=== PATIENT | female | born 1955 | race Caucasian/White ===

== ENCOUNTER 2023-02-27 11:09 | Outpatient (CLI) | payer MEDICARE, OTHER, SELFPAY ==
--- NOTE | ~2023-02-27 | CT_ITS ---
CT Scan of the Chest without Contrast: Clinical Indication: Lung cancer screening, personal history of nicotine dependence Technique: Contiguous sections were acquired throughout the chest without intravenous contrast. Dose reduction technique was used on this scan by utilizing automated exposure control and iterative recon struction technique. The dose-length product (DLP) was 139.93 mGy-cm. Findings: There is no evidence of any significant mediastinal, hilar or axillary lymphadenopathy. Calcified med iastinal and right hilar lymph nodes are present. Coronary artery calcifications are present. There is no evidence of pleural or pericardial effusion. Calcified right lower lobe granuloma is are present. There is a 7 mm noncalcified right lower lobe pu lmonary nodule (axial image 62). No left lung pulmonary nodule identified. There is minimal subpleura l reticulation in the lungs. Images through the upper abdomen reveal calcified splenic and hepatic granulomas. Impression: Lung RADS 3: Probably benign. Six-month follow-up low-dose CT recommended. Evidence of prior granulomatous disease. Reviewed, dictated and finalized at [facility]. Impression: Lung RADS 3: Probably benign. Six-month follow-up low-dose CT recommended. Evidence of prior granulomatous disease.
== END 2023-02-27 11:10 | disposition home or self-care (01) ==
PROVIDERS: PCP Family Medicine Adolescent Medicine; Visit Provider Nurse Practitioner Family
DX: Z12.2 Encounter for screening for malignant neoplasm of respiratory organs (principal); Z87.891 Personal history of nicotine dependence; R91.8 Other nonspecific abnormal finding of lung field
CPT/HCPCS: 71271

== ENCOUNTER 2023-03-19 10:24 | Outpatient (CLI) | payer MEDICARE, OTHER, SELFPAY ==
--- NOTE | 2023-03-20 12:28 | WPDPFTINT ---
PFT Procedure Performed PFT Procedure Performed Spirometry with Pre/Post Bronchodilator Plethysmography (Lung Vol) Diffusing Cap (DLCO) Flow Vol Loop PFT Interpretation DOS: 03/19/2023 REQUESTING: Jorge Sweeney MD REASON FOR TESTING: Chronic cough, tobacco use PULMONARY FUNCTION TESTS Results are reliable and reproducible. Spirometry: pre bronchodilator FEV1 is 2.16 L, 91%, normal. Pre bronchodilator FVC is 2.71 L, 88%, normal. FEV1/ FVC ratio is 80%, normal. After bronchodilator there is a 3% drop in the FEV1 and 3% drop in the FVC, not statistically significant. The ratio remains 80%. Lung volumes: Total lung capacity is 4.42 L, 82%, normal. Residual volume is 1.71 L, 74%, normal. RV /TLC is 39%, normal. Normal airway resistance. Diffusion: DLCO is 16.4, 77%, in the normal range. DLCO / VA is 4.22, 101% predicted, normal. Flow volume loop: Unremarkable IMPRESSION: This study shows normal spirometry without response to bronchodilator, normal lung volumes and normal diffusion. No prior studies for comparison. Florecita Miles MD
== END 2023-03-19 10:25 | disposition home or self-care (01) ==
LOC: ANHPFT 10:25
PROVIDERS: PCP Family Medicine Adolescent Medicine; Visit Provider Nurse Practitioner Family
DX: R05.3 Chronic cough (principal); Z72.0 Tobacco use
CPT/HCPCS: 94060; 94726; 94729

== ENCOUNTER 2024-03-05 07:00 | Outpatient (NON) | payer MEDICARE, OTHER, SELFPAY | END 2024-03-05 07:01 | disposition home or self-care (01) | PROVIDERS: PCP Family Medicine Adolescent Medicine; Visit Provider Internal Medicine Gastroenterology | DX: Z12.11 Encounter for screening for malignant neoplasm of colon (principal); K63.5 Polyp of colon | CPT/HCPCS: 88305 ==

== ENCOUNTER 2024-03-05 07:37 | Day surgery (SDC) | payer MEDICARE, OTHER, SELFPAY ==
[2024-02-08 08:22] VITALS: BMI 33.1
[2024-02-22 11:45] VITALS: BMI 32.3
--- NOTE | 2024-02-28 10:38 | SUR.PREOP ---
CALLED PT AND LEFT A VM REGARDING PLAVIX; LAST DOSE WEDNESDAY 02/28. HOLD FOR 4 DAYS PRIOR TO COLONOSCOPY ON 03/05. ASKED FOR HER TO RETURN OUR CALL FOR CONFIRMATION
[2024-03-05 08:05] VITALS: BP 130/63; PULSE 79; RESP 16; TEMP 36.9; O2SAT 95
[2024-03-05] MEDS: LACTATED RINGERS 1,000 ML 150 ML IV CONT (08:13)
--- NOTE | 2024-03-05 08:27 | WPDANESEPPF ---
Anes - Initial Pre Proc Eval Procedure: Operation Date: 03/05/24 09:30 Proposed Procedures p Screening Colonoscopy - Armando Olivares MD Date/Time: 03/05/24 08:27 Surgeon: Armando Olivares MD Pre Op Diagnosis: Screening for neoplasm of colon Patient Data Age: 69 Gender: F Height: 1.68 m Weight: 88.8 kg Last Vital Signs Temp 36.9 C 03/05/24 08:05 Pulse 79 03/05/24 08:05 Resp 16 03/05/24 08:05 BP 130/63 03/05/24 08:05 Pulse Ox 95 03/05/24 08:05 O2 Del Method Room Air 03/05/24 08:05 Allergies Allergy/AdvReac Type Severity Reaction Status Date / Time No Known Allergies Allergy Verified 03/05/24 08:03 Home Medications Medication Instructions Recorded Confirmed Type folic acid 1 mg tablet 1 mg PO DAILY 07/13/22 03/05/24 History gabapentin 300 mg (9)-600 mg (24) 2 ea PO .hs 07/13/22 03/05/24 History tablet, ER 24 hr dose pack oxybutynin chloride 5 mg tablet 5 mg PO BID 07/13/22 03/05/24 History tizanidine 2 mg capsule 2 mg PO QHS 07/13/22 03/05/24 History diclofenac sodium 75 mg 75 mg PO BID 02/06/24 03/05/24 History tablet,delayed release evolocumab 420 mg/3.5 mL 420 mg (3.5 mL) subcut MONTHLY 02/06/24 03/05/24 Rx subcutaneous wearable injector #11.5 mL (Repatha Pushtronex) pantoprazole 40 mg tablet,delayed 40 mg PO QAM 02/06/24 03/05/24 History release atorvastatin 80 mg tablet 80 mg PO DAILY 02/22/24 03/05/24 History bupropion HCl 150 mg 24 hr tablet, 150 mg PO DAILY 02/22/24 03/05/24 History extended release buspirone 10 mg tablet 10 mg PO BID 02/22/24 03/05/24 History clopidogrel 75 mg tablet 75 mg PO DAILY 02/22/24 03/05/24 History coenzyme Q10 10 mg tablet 10 mg PO DAILY 02/22/24 03/05/24 History ezetimibe 10 mg tablet 10 mg PO DAILY 02/22/24 03/05/24 History flssvcxi-war-srfz 18 mg-FA 400 1 tablet PO DAILY 02/22/24 03/05/24 History mcg-calcium 500 mg-vit K 50 mcg tablet (Women's Multivitamin) trazodone 100 mg tablet 100 mg PO HS 02/22/24 03/05/24 History varenicline 1 mg tablet 1 mg PO DIRECTED 02/22/24 03/05/24 History acetaminophen 325 mg tablet 650 mg PO Q6H PRN Pain 03/05/24 03/05/24 History Patient hx anesthesia problems: none Family hx anesthesia problems: none Results Review: All pre-operative results and documents have been reviewed as part of the pre-operative evaluation. [facility] Surgical History Surgical History History of left-sided carotid endarterectomy (~07/2021) Family History Family History Sibling Schizophrenia Sibling Acute myocardial infarction Other Diabetes mellitus Social History Social History Smoking packs per day: 0.5 Smoking cigarettes per day: 10.0 Years smoked: 50 Smoking pack-years: 25.00 Smoking status: Current every day smoker Tobacco type: cigarettes Additional smoking assessment comments: / ppd Alcohol intake: current Alcohol use details: occasional Substance use: never Substance use type: does not use Living arrangements: with family 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 Informed Consent: The patient's anesthetic plan and its attendant risks and benefits were discussed with sneha
--- NOTE | 2024-03-05 08:56 | PM.HPGS ---
History of Present Illness History of Present Illness Consent: Risks, benefits, and alternatives have been discussed and questions answered. Patient agrees to proceed with procedure. Chief complaint: Screening for neoplasm of colon Narrative: Asmita Samson is a 69 year old female presents for screening colonoscopy. Patient's current weight appetite is are normal. She denies abdominal pain. Patient has had no bleeding. Family history is noncontributory. Review of Systems Review of Systems: All systems reviewed & are unremarkable except as noted in HPI and below PMFSH Surgical History Surgical History History of left-sided carotid endarterectomy (~07/2021) Family History Family History Sibling Schizophrenia Sibling Acute myocardial infarction Other Diabetes mellitus Social History Social History Smoking packs per day: 0.5 Smoking cigarettes per day: 10.0 Years smoked: 50 Smoking pack-years: 25.00 Smoking status: Current every day smoker Tobacco type: cigarettes Additional smoking assessment comments: / ppd Alcohol intake: current Alcohol use details: occasional Substance use: never Substance use type: does not use Living arrangements: with family 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5 mL) subcut MONTHLY 02/06/24 03/05/24 Rx subcutaneous wearable injector #11.5 mL (Repatha Pushtronex) pantoprazole 40 mg tablet,delayed 40 mg PO QAM 02/06/24 03/05/24 History release atorvastatin 80 mg tablet 80 mg PO DAILY 02/22/24 03/05/24 History bupropion HCl 150 mg 24 hr tablet, 150 mg PO DAILY 02/22/24 03/05/24 History extended release buspirone 10 mg tablet 10 mg PO BID 02/22/24 03/05/24 History clopidogrel 75 mg tablet 75 mg PO DAILY 02/22/24 03/05/24 History coenzyme Q10 10 mg tablet 10 mg PO DAILY 02/22/24 03/05/24 History ezetimibe 10 mg tablet 10 mg PO DAILY 02/22/24 03/05/24 History ljgdiyik-tld-qqqh 18 mg-FA 400 1 tablet PO DAILY 02/22/24 03/05/24 History mcg-calcium 500 mg-vit K 50 mcg tablet (Women's Multivitamin) trazodone 100 mg tablet 100 mg PO HS 02/22/24 03/05/24 History varenicline 1 mg tablet 1 mg PO DIRECTED 02/22/24 03/05/24 History acetaminophen 325 mg tablet 650 mg PO Q6H PRN Pain 03/05/24 03/05/24 History Allergies Allergy/AdvReac Type Severity Reaction Status Date / Time No Known Allergies Allergy Verified 03/05/24 08:03 Vital Signs Vital Signs - 24 hr 03/05/24 08:05 Temperature 98.4 F Pulse Rate 79 Respiratory Rate 16 Blood Pressure 130/63 Pulse Oximetry 95 Oxygen Delivery Room Air Exam Narrative: Physical exam reveals patient to be alert. Signs stable. HEENT exam is unremarkable. Patient is anicteric. Lungs are clear to auscultation and is without murmur or extra sounds. Abdomen bowel sounds are present soft nontender with no hepatosplenomegaly. Digital external rectal exam normal. Assessment and Plan Assessment and plan (1) Colon cancer screening: Code(s): Z12.11 - Encounter for screening for malignant neoplasm of colon Status: Acute Assessment and Plan: Patient presents
[2024-03-05 09:55] VITALS: BP 129/73; PULSE 76; RESP 15
--- NOTE | 2024-03-05 10:01 | WPDANESPN ---
Anes - Prog Note Post-Op Date/Time: 03/05/24 10:01 Cardiovascular status: normal Respiratory status: normal Airway patency: baseline Mental status: baseline Post-Op hydration status: normal Vital Signs: Last Vital Signs Temp 36.9 C 03/05/24 08:05 Pulse 79 03/05/24 08:05 Resp 16 03/05/24 08:05 BP 130/63 03/05/24 08:05 Pulse Ox 95 03/05/24 08:05 O2 Del Method Room Air 03/05/24 08:05 Pain Score (VAS): 1 I/O: Intake & Output 03/04/24 03/05/24 03/05/24 23:59 07:59 15:59 Intake Total 900 Balance 900 Post-procedural complaints: none Patient Feedback: Patient satisfied with anesthetic care.
[2024-03-05 10:05] VITALS: BP 137/81; PULSE 76; RESP 15; O2SAT 99
[2024-03-05 10:15] VITALS: BP 142/79; PULSE 76; RESP 15; O2SAT 100
== END 2024-03-05 11:37 | disposition home or self-care (01) ==
PROVIDERS: PCP Family Medicine Adolescent Medicine; Visit Provider Internal Medicine Gastroenterology
PROC: 0DJD8ZZ Inspection of Lower Intestinal Tract, Via Natural or Artificial Opening Endoscopic (ICD-10-PCS; CPT 45378; principal; 2024-03-05 09:30)
DX: Z12.11 Encounter for screening for malignant neoplasm of colon (principal); D12.8 Benign neoplasm of rectum; K57.32 Diverticulitis of large intestine without perforation or abscess without bleeding
CPT/HCPCS: 45385

== ENCOUNTER 2024-09-02 10:11 | Outpatient (CLI) | payer OTHER, SELFPAY ==
--- NOTE | ~2024-09-02 | CT_ITS ---
CT Scan of the Chest without Contrast: Clinical Indication: Lung cancer screening, nicotine dependence Technique: Contiguous sections were acquired throughout the chest without intravenous contrast. Dose reduction technique was used on this scan by utilizing automated exposure control and iterative recon struction technique. The dose-length product (DLP) was 101.14 mGy-cm. COMPARISON: 02/27/2023 Findings: There is no evidence of any significant mediastinal, hilar or axillary lymphadenopathy. Calcified med iastinal and right hilar lymph nodes are present. Coronary artery calcifications are present.. There is no evidence of pleural or pericardial effusion. Calcified right lower lobe granuloma present with focal adjacent chronic scarring or atelectasis. May undglass sanchez-fissural nodule in the right lower lobe is stable to mildly decreased (axial image 63). Images through the upper abdomen reveal calcified hepatic and splenic granulomas.. Impression: Lung RADS 2: Benign appearance. 12 month follow-up screening CT advised. Reviewed, dictated and finalized at [facility]. WEB APPLICATION DEVELOPER Impression: Lung RADS 2: Benign appearance. 12 month follow-up screening CT advised.
--- OUTSIDE RECORDS SUMMARY | 2024-09-04 17:14 | XMS_ITS | Referral Summary ---
Author Organization [facility] Address [address] [place] [address] Care Team Providers Care Ship'S Master Name Role Phone Jorge Sweeney MD Primary Care Provider + Source Comments [facility],non-owned Affiliates and Associated Physician Practices is amultiple site organization consisting of ambulatory clinics and hospital sitesin [place], [place] and [place]. This disclosure is being madepursuant to the Care Everywhere program and may not contain all information available regarding this patient. Last updated 18.[facility] Encounters Date Type Department Care Team Description 06/11/2024 1:00 PM CDT - 06/11/2024 11:59 PM CDT Hospital Encounter [facility] Imaging Services - Radiology [address] [place] [id number] Discharge Disposition: Home or Self Care from Last 3 Months Allergies Active Allergy Reactions Criticality Noted Date Comments Aspirin Rash Low 04/12/2015 Hmg-Coa-R Inhibitors Myalgias 04/12/2015 Atorvastatin Myalgias 04/12/2015 Medications * Be aware that medications may not be up to date on this document. Alwaysverify current medications with the patient. Medication Sig Dispensed Refills Start Date End Date Status furosemide (LASIX) 20 MG tablet Take 20 mg by mouth once daily as needed Active simvastatin (ZOCOR) 40 MG tablet Take 40 mg by mouth at bedtime Active ranitidine (ZANTAC) 150 MG tablet Take 150 mg by mouth once daily as needed for Heartburn Active Multiple Vitamins-Minerals (MULTIVITAMIN ADULTS 50+ PO) Take by mouth once daily Active Coenzyme Q10 (COQ10) 400 MG CAPS Take by mouth once daily Active Probiotic Product (Business Engine PO) Take by mouth once daily Active Bisacodyl (DULCOLAX PO) Take by mouth as needed Active Ibuprofen-Diphenhydra mine Cit (ADVIL PM) 200-38 MG TABS Take by mouth nightly as needed Active methotrexate 2.5 MG tabletIndications:Pal indromic rheumatism Take 8 Tabs by mouth every 7 days before meal 32 Tab 6 04/12/2015 Active folic acid (FOLVITE) 1 MG tabletIndications:Pal indromic rheumatism Take 1 Tab by mouth once daily 30 Tab 12 04/12/2015 Active naproxen sodium (ALEVE) 220 MG tabletIndications:Rot ator cuff syndrome, right Take 2 Tabs by mouth 2 times daily For 7 days for flare ups 04/12/2015 Active gabapentin (NEURONTIN) 300 MG capsuleIndications:In somnia Take 1-2 Caps by mouth at bedtime 60 Cap 6 05/24/2015 Active DULoxetine (CYMBALTA) 60 MG capsuleIndications:Fa tigue,Insomnia Take 1 Cap by mouth once daily 30 Cap 12 05/24/2015 Active Active Problems Problem Noted Date Diagnosed Date Rotator cuff syndrome of right shoulder 04/13/20 15 Overview (04/13/2015): 04/13/2015 Ultrasound examination of the rotator cuff indicates bursal thickening compatible with supraspinatus irritation by severe osteoarthritis of the acromioclavicular joint. 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, 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 Overview (05/24/2015): 04/13/2015 Chronic stiffness and pain in multiple joints marked synovitis episodically in a migratory pattern, erosive changes of the wrists on x-ray 05/24/2015 MTX move to after a meal R3=10.2 too sleepy on MTX days High risk medications (not anticoagulants) long- term use 04/12/2015 Social History Tobacco Use Types Packs/Day Years Used Date Smoking Tobacco: Former Alcohol Use Standard Drinks/Week Comments Yes 5.8 (1 standard drink = 0.6 oz p ure alcohol) Sex and Gender Information Value Date Recorded Sex Assigned at Not on file Gender Identity Not on file Sexual Orientation Not on file Last Filed Vital Signs Vital Sign Reading Time Taken Comments Blood Pressure 140/88 05/24/2015 1:52 PM CDT Pulse 80 05/24/2015 1:52 PM CDT Temperature - - Respiratory Rate - - Oxygen Saturation - - Inhaled Oxygen Concentration - - Weight 92.6 kg (204 lb 3.2 oz) 05/24/2015 1:52 PM CDT Height 170.2 cm (5' 7 ) 05/24/2015 1:52 PM CDT Body Mass Index 31.98 05/24/2015 1:52 PM CDT Plan of Treatment Not on file Procedures Procedure Name Priority Date/Time Associated Diagnosis Comments XR LUMBAR SPINE 4VW OR MORE Routine 06/11/2024 1:42 PM CDT Rheu arthritis w rheu factor mult site w/o org/sys involv ([facility]) Other chronic back pain Chronic bilateral thoracic back pain Insomnia due to medical condition from Last 3 Months Results * XR LUMBAR SPINE 4+ VW (06/11/2024 1:42 PM CDT) Anatomical Region Laterality Modality Spine Radiographic Breana ging 06/11/2024 4:13 PM CDT Impressions 06/11/2024 4:14 PM CDT IMPRESSION: Degenerative lumbar facet disease, greater at L5-S1. > Interpreting Provider: Breezy Ryan MD on 06/11/2024 4:14 PM Narrative 06/11/2024 4:14 PM CDT PROCEDURE: ??XR LUMBAR SPINE 4VW OR MORE DATE/TIME OF EXAM: ??06/11/2024 1:42 PM CLINICAL INFORMATION: None relevant/not provided if blank. Indication: M05.79: Rheumatoid arthritis with rheumatoid factor of multiple sites without organ or systems involvement ([facility]) M54.89: Other dorsalgia G89.29: Other chronic pain M54.6: Pain in thoracic spine G89.29: Other chronic pain G47.01: Insomnia due to medical condition Additional History: FINDINGS: Osteopenia. No acute fracture or malalignment. Mild disc height loss L5-S1. Intervertebral disc heights are otherwise preserved. Multilevel facet sclerosis and hypertrophy, greater at L5-S1. No appreciable pars defects. Procedure Note Breezy Ryan MD - 06/11/2024 PROCEDURE: XR LUMBAR SPINE 4VW OR MORE DATE/TIME OF EXAM: 06/11/2024 1:42 PM CLINICAL INFORMATION: None relevant/not provided if blank. Indication: M05.79: Rheumatoid arthritis with rheumatoid factor ofmultiple sites without organ or systems involvement ([facility]) M54.89: Other dorsalgia G89.29: Other chronic pain M54.6: Pain in thoracic spine G89.29: Other chronic pain G47.01: Insomnia due to medical condition Additional History: FINDINGS: Osteopenia. No acute fracture or malalignment. Mild disc height lossL5-S1. Intervertebral disc heights are otherwise preserved. Multilevel facet sclerosis and hypertrophy, greater at L5-S1. No appreciable parsdefects. IMPRESSION: Degenerative lumbar facet disease, greater at L5-S1. > Interpreting Provider: Breezy Ryan MD on 06/11/2024 4:14 PM Tracie Ponce BAKERY MANAGER-APPRAISER TIMBER DIAGNOSTIC IMAG ING ORDERABLES from Last 3 Months Administered Medications Care Teams Ship'S Master Relationship Specialty Start Date End Date Jorge Sweeney MD [address] [place] [address] PCP - General Family Medicine 03/01/15
--- OUTSIDE RECORDS SUMMARY | 2024-09-04 17:14 | XMS_ITS | Clinical Summary ---
Author Organization [facility] Address [address] [place] [address] Phone Care Team Providers Care Bindery Production Manager Name Role Phone Jorge Sweeney MD Primary Care Provider [phone] Allergies Active Allergy Reactions Criticality Noted Date Comments Aspirin Rash Low 04/12/2015 Medications gabapentin (NEURONTIN) 300 mg capsule Take 300 mg by mouth 3 times daily. 06/14/2023 Active Ibuprofen-diphe nhydrAMINE 200-38 mg Tablet Take by mouth nightly as needed. Active methotrexate (RHEUMATREX) 2.5 mg Tablet 06/14/2023 Activ e ezetimibe (ZETIA) 10 mg tablet Take 1 Tablet (10 mg) by mouth daily. 90 Tablet 3 09/13/2023 Active FOLIC ACID ORAL Take by mouth. Active oxyBUTYnin (DITROPAN XL) 5 mg Extended Release 24 hour tablet Take 5 mg by mouth 2 times daily. Active multivitamin (DAILY-BAILEE) tablet Take 1 Tablet by mouth daily. Active atorvastatin (LIPITOR) 80 mg tablet Take 1 Tablet (80 mg) by mouth daily. 90 Tablet 3 10/24/2023 Active clopidogreL (PLAVIX) 75 mg Tablet take 1 tablet every day 90 Tablet 3 05/23/2024 Active Active Problems No known active problems Encounters Date Type Department Care Team Description 09/04/2024 External Device Data [facility] ABSTRACTION Provider, Abstract 09/02/2024 External Device Data [facility] ABSTRACTION Provider, Abstract 08/26/2024 External Device Data [facility] ABSTRACTION Provider, Abstract 06/11/2024 External Device Data [facility] ABSTRACTION Provider, Abstract from Last 3 Months Family History Medical History Relation Name Comments Heart Disease Father Heart Disease Mother Relation Name Status Comments Father Mother Social History Tobacco Use Types Packs/Day Years Used Date Smoking Tobacco: Former Cigarettes 1 61 S tarted: 08/24/1963 Passive Smoke Exposure: Past Smokeless Tobacco: Never Alcohol Use Standard Drinks/Week Comments Not Currently 0 (1 standard drink = 0.6 oz pur e alcohol) Comments Unknown Sex and Gender Information Value Date Recorded Sex Assigned at Not on file Legal Sex Female 10:54 AM FACILITIES OPERATIONS TECHNICIAN Gender Identity Not on file Sexual Orientation Not on file Last Filed Vital Signs Vital Sign Reading Time Taken Comments Blood Pressure 122/62 10/18/2023 3:09 PM FACILITIES OPERATIONS TECHNICIAN Pulse 73 10/18/2023 3:09 PM FACILITIES OPERATIONS TECHNICIAN Temperature - - Respiratory Rate - - Oxygen Saturation 96% 09/13/2023 8:47 AM FACILITIES OPERATIONS TECHNICIAN Inhaled Oxygen Concentration - - Weight 93 kg (205 lb) 10/18/2023 3:09 PM FACILITIES OPERATIONS TECHNICIAN Height 167.6 cm (5' 6 ) 10/18/2023 3:09 PM FACILITIES OPERATIONS TECHNICIAN Body Mass Index 33.09 10/18/2023 3:09 PM FACILITIES OPERATIONS TECHNICIAN Plan of Treatment Upcoming Encounters Date Type Department Care Team (Late st Contact Info) Description 10/06/2024 9:30 AM FACILITIES OPERATIONS TECHNICIAN Office Visit [facility] - [address] [address] [address] [facility] [place] [address] Shari Lares FNP [address] [facility] [address] [place] [address] Health Maintenance Due Date Last Done Comments DTAP/TDAP/TD VACCINES (1 - Tdap) 01/08/1972 Traditional Medicare (ACO) Annual Wellness Visit 01/07 BREAST CANCER SCREENING 1993 FIT-DNA Q 3 years 1998 FIT/FOBT Q 1 year 1998 Flex Sig/CT Colonography Q 5 years 1998 PNEUMOCOCCAL VACCINE 65+ YEARS (1 of 1 - PCV) 01/08/20 03 ZOSTER VACCINE (1 of 2) 2003 RSV VACCINE (60+ or ) (1 - Risk 60-74 years 1-dose series) 2013 INFLUENZA VACCINE (#1) 2024 COLORECTAL SCREENING 03/05/2034 03/05/2024 Colorectal Cancer Screening 03/05/2034 OSTEOPOROSIS SCREENING Completed 08/02/2022 Insurance [employer] MEDICARE PART A AND B Care Teams Bindery Production Manager Relationship Specialty Start Date End Date Jorge Sweeney MD [address] [phone] PCP - General Family Practice 10/10/23
--- OUTSIDE RECORDS SUMMARY | 2024-09-04 17:14 | XMS_ITS | Patient Health Summary ---
Author Organization [facility] Address [address] [place] [address] Care Team Providers Care Qlikview Developer Name Role Phone Jorge Sweeney MD Primary Care Provider + Note from [facility],non-owned Affiliates and Associated Physician Practices is amultiple site organization consisting of ambulatory clinics and hospital sitesin [place], [place], [place] and [place]. This disclosure is being madepursuant to the Care Everywhere program and may not contain all information available regarding this patient. Last updated 18.[facility] Allergies * Aspirin(Rash) -Low Criticality * Hmg-Coa-R Inhibitors(Myalgias) * Atorvastatin(Myalgias) Medications * Be aware that medications may not be up to date on this document. Alwaysverify current medications with the patient. * furosemide (LASIX) 20 MG tablet Take 20 mg by mouth once daily as needed * simvastatin (ZOCOR) 40 MG tablet Take 40 mg by mouth at bedtime * ranitidine (ZANTAC) 150 MG tablet Take 150 mg by mouth once daily as needed for Heartburn * Multiple Vitamins-Minerals (MULTIVITAMIN ADULTS 50+ PO) Take by mouth once daily * Coenzyme Q10 (COQ10) 400 MG CAPS Take by mouth once daily * Probiotic Product (Gifts that Give PO) Take by mouth once daily * Bisacodyl (DULCOLAX PO) Take by mouth as needed * Ibuprofen-Diphenhydramine Cit (ADVIL PM) 200-38 MG TABS Take by mouth nightly as needed * methotrexate 2.5 MG tablet(Started 04/12/2015) Take 8 Tabs by mouth every 7 days before meal 6 refills left * folic acid (FOLVITE) 1 MG tablet(Started 04/12/2015) Take 1 Tab by mouth once daily 12 refills left * naproxen sodium (ALEVE) 220 MG tablet(Started 04/12/2015) Take 2 Tabs by mouth 2 times daily For 7 days for flare ups * gabapentin (NEURONTIN) 300 MG capsule(Started 05/24/2015) Take 1-2 Caps by mouth at bedtime 6 refills left * DULoxetine (CYMBALTA) 60 MG capsule(Started 05/24/2015) Take 1 Cap by mouth once daily 12 refills left Active Problems Problem Noted Date Diagnosed Date Rotator cuff syndrome of right shoulder 04/13/20 15 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, 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 High risk medications (not anticoagulants) long- term [...] kg (204 lb 3.2 oz) 05/24/2015 1:52 P M CDT Height 170.2 cm (5' 7 ) 05/24/2015 1:52 PM CDT Body Mass Index 31.98 05/24/2015 1:52 PM CDT Procedures * XR LUMBAR SPINE 4VW OR MORE(Performed 06/11/2024) Performed for Rheu arthritis w rheu factor mult site w/o org/sys involv (HCC), Other chronic back pain, Chronic bilateral thoracic back pain, Insomnia due to medical condition * COMPREHENSIVE METABOLIC PANEL(Performed 05/24/2015) Performed for High risk medications (not anticoagulants) long-term use * CBC W AUTO DIFFERENTIAL(Performed 05/24/2015) Performed for High risk medications (not anticoagulants) long-term use * XR HAND BILAT 1VW(Performed 04/12/2015) Performed for Palindromic rheumatism * US EXTREMITY RIGHT COMP JOINT(Performed 04/12/2015) Performed for Rotator cuff syndrome, right * W REFLX (POSITIVE)(Performed 04/12/2015) Performed for Palindromic rheumatism * CYCLIC CITRUL PEPTIDE ANTIBODY IGG/IGA (CCP)(Performed 04/12/2015) Performed for Palindromic rheumatism * C-REACTIVE PROTEIN(Performed 04/12/2015) Performed for Palindromic rheumatism * ERYTHROCYTE SEDIMENTATION RATE(Performed 04/12/2015) Performed for Palindromic rheumatism Results * XR LUMBAR SPINE 4+ VW [...] multiple sites without organ or systems involvement (HCC) M54.89: Other dorsalgia G89.29: Other chronic pain [...] ofmultiple sites without organ or systems involvement (HCC) M54.89: Other dorsalgia G89.29: Other chronic pain [...] MD on 06/11/2024 4:14 PM Tracie Ponce FOOD SAFETY AUDITOR-R DEVELOPER DIAGNOSTIC IMAG ING ORDERABLES * (ABNORMAL) CBC W AUTO DIFFERENTIAL (05/24/2015 2:24 PM CDT) WBC 7.5 4.4 - 10.7 x10E9/L [facility] ACCOUNT BILL RBC 4.37 3.80 - 5.20 x10E12/L [facility] ACCOUNT BILL Hemoglobin 13.3 12.0 - 15.6 gm/dL [facility] ACCOUNT BILL Hematocrit 41.0 35.9 - 45.5 % [facility] ACCOUNT BILL MCV 93.8 80.7 - 98.3 fL [facility] ACCOUNT BILL MCH 30.4 26.7 - 34.0 pg [facility] ACCOUNT BILL MCHC 32.4 30.8 - 35.9 gm/dL [facility] ACCOUNT BILL RDW 15.2(H) 12.1 - 14.9 % [facility] ACCOUNT BILL Platelet Count 299 153 - 416 x10E9/L [facility] ACCOUNT BILL Comment:MPV FL BLOOD (SSM) 1 1.2 fl 9.4-12.9 Granulocytes % 57.1 44.0 - 73.0 % [facility] ACCOUNT BILL Lymphocytes % 28.0 20.0 - 43.0 % [facility] ACCOUNT BILL Monocytes % 9.4 5.0 - 13.0 % [facility] ACCOUNT BILL Eosinophils % 4.8 0.0 - 6.0 % [facility] ACCOUNT BILL Basophils % 0.4 0.0 - 2.0 % [facility] ACCOUNT BILL Granulocytes Absolute 4.31 2.01 - 7.14 x10E9/L [facility] ACCOUNT BILL Lymphocytes Absolute 2.11 1.07 - 3.94 x10E9/L [facility] ACCOUNT BILL Monocytes Absolute 0.71 0.26 - 1.07 x10E9/L [facility] ACCOUNT BILL Eosinophils Absolute 0.36 0 - 0.47 x10E9/L [facility] ACCOUNT BILL Basophils Absolute 0.03 0 - 0.08 x10E9/L [facility] ACCOUNT BILL Immature Granulocytes 0.3 0 - 1 % [facility] ACCOUNT BILL Immature Granulocytes Absolute 0.02 0.00 - 0.06 x10E9/L [facility] ACCOUNT BILL nRBC 0 /100 WBC [facility] ACCOUNT BILL Blood specimen (specimen) BLOOD SPECIMEN / Unknown 05/24/2015 2:24 PM CDT 05/24/2015 7:54 PM CDT Narrative Resulting Agency Comment [facility] [address] [address] ??[place] [phone] Kanu Bustos MD LAB - HEMATOLOGY ORD ERABLES [facility] ACCOUNT BILL * (ABNORMAL) COMPREHENSIVE METABOLIC PANEL (05/24/2015 2:24 PM CDT) Glucose 81 74 - 106 mg/dL [facility] ACCOUNT BILL BUN 13 7 - 21 mg/dL [facility] ACCOUNT BILL Creatinine 0.84 0.50 - 1.30 mg/dL [facility] ACCOUNT BILL eGFR by MDRD >60 >60 mL/min/1.7 3m2 [facility] ACCOUNT BILL eGFR by MDRD >60 >60 mL/min/1.7 3m2 [facility] ACCOUNT BILL Sodium 142 136 - 145 mmol/L [facility] ACCOUNT BILL Potassium 4.3 3.5 - 5.1 mmol/L [facility] ACCOUNT BILL Chloride 108(H) 98 - 107 mmol/L [facility] ACCOUNT BILL CO2 28 22 - 31 mmol/L [facility] ACCOUNT BILL Calcium 9.6 8.5 - 10.1 mg/dL [facility] ACCOUNT BILL Protein Total 7.2 6.4 - 8.2 gm/dL [facility] ACCOUNT BILL Albumin 4.2 3.4 - 5.0 gm/dL [facility] ACCOUNT BILL Bilirubin Total 0.3 0.2 - 1.0 mg/dL [facility] ACCOUNT BILL Alkaline Phosphatase 60 38 - 126 U/L [facility] ACCOUNT BILL AST 20 5 - 40 U/L [facility] ACCOUNT BILL ALT 38 12 - 78 U/L [facility] ACCOUNT BILL Blood specimen (specimen) BLOOD SPECIMEN / Unknown 05/24/2015 2:24 PM CDT 05/24/2015 7:54 PM CDT Narrative Resulting Agency Comment [facility] [address] [address] ??[place] [phone] Kanu Bustos MD LAB - CHEMISTRY CA RESENDIZ [facility] Organization Address City/State/ZIP Co de Phone Number [facility] ACCOUNT BILL * XR HANDS BILAT SINGLE VIEW (04/12/2015 4:51 PM CDT) Anatomical Region Laterality Modality Wrist / Hand, Upper Extremity Co mputed Radiography Narrative 04/13/2015 2:02 PM CDT Kanu Bustos MD ? 04/13/2015 ??2:02 PM Bilateral hand x-ray: ??Mild osteopenia of the wrists no evidence of chondrocalcinosis, multiple small erosions of carpal bones compatible with inflammatory arthritis, H0W1 clinical correlation suggested Kanu Bustos MD DIAGNOSTIC IMAGING O RDERABLES * US EXTREM RIGHT CMPLT NONVASC (04/12/2015 4:49 PM CDT) Anatomical Region Laterality Modality Ultrasound Narrative 04/13/2015 2:02 PM CDT Kanu Bustos MD ? 04/13/2015 ??2:02 PM Complete ??right shoulder Ultrasound exam ?? Mylab 5 with 438 18 mhz probe. ?? Bicipital tendon ??Intact without erosions or tendon sheath effusion External rotation ??full stable BT, in groove and full mobility of subscalularis AC joint ??Severe osteophytes moderate synovitis without PDUS Supraspinatus tendon ??Intact without rotator cuff tear but ?? 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 Negative ? <20 ? Weak positive ?20 - 39 ? Moderate positive ??40 - 59 ? Strong positive ?>59 BLOOD SPECIMEN / Unknown 04/12/2015 4:19 PM CDT 04/12/2015 7:41 PM CDT Narrative Resulting Agency Comment [facility] [address] ??[facility] [phone] Kanu Bustos MD LAB - SEROLOGY ORDER SONIA [facility] ACCOUNT BILL * W REFLX (POSITIVE) (PO REF LAB) (04/12/2015 4:19 PM CDT) Direct Negative Negative [facility] ACCOUNT BILL Blood specimen (specimen) BLOOD SPECIMEN / Unknown 04/12/2015 4:19 PM CDT 04/12/2015 7:41 PM CDT Narrative Resulting Agency Comment [facility] [address] ??[facility], [phone] Kanu Bustos MD LAB - SEROLOGY ORDER SONIA [facility] ACCOUNT BILL * (ABNORMAL) C-REACTIVE PROTEIN (04/12/2015 4:19 PM CDT) C-Reactive Protein 0.37(H) <0.30 mg/dL [facility] ACCOUNT BILL Blood specimen (specimen) BLOOD SPECIMEN / Unknown 04/12/2015 4:19 PM CDT 04/12/2015 7:41 PM CDT Narrative Resulting Agency Comment [facility] [address] ??[place] [phone] Kanu Bustos MD LAB - CHEMISTRY ORDE ASTRID [facility] ACCOUNT BILL * SED RATE WESTERGREN (04/12/2015 4:19 PM CDT) Erythrocyte Sedimentation Rate Westergren 23 0 - 30 mm/hr [facility] ACCOUNT BILL Blood specimen (specimen) BLOOD SPECIMEN / Unknown 04/12/2015 4:19 PM CDT 04/12/2015 7:41 PM CDT Narrative Resulting Agency Comment [facility] [address] ??[place] [phone] Kanu Bustos MD LAB - HEMATOLOGY ORD ERABLES [facility] ACCOUNT BILL Care Teams Qlikview Developer Relationship Specialty Start Date End Date Jorge Sweeney MD [address] [place] [id number] PCP - General Family Medicine 03/01/15
--- OUTSIDE RECORDS SUMMARY | 2024-09-04 17:14 | XMS_ITS | Clinical Summary ---
Author Organization [facility] Address [address] [place] [address] Care Team Providers Care Mail Superintendent Name Role Phone Jorge Sweeney MD Primary Care Provider + Source Comments [facility],non-owned Affiliates and Associated Physician Practices is amultiple site organization consisting of ambulatory clinics and hospital sitesin [place], [place] and [place]. This disclosure is being madepursuant to the Care Everywhere program and may not contain all information available regarding this patient. Last updated 18.[facility] Allergies Active Allergy Reactions Criticality Noted Date [...] by mouth once daily Active Probiotic Product ([employer] HEALTH PO) Take by mouth once daily Active [...] medications (not anticoagulants) long- term use 04/12/2015 Encounters Date Type Department Care Team Description 06/11/2024 1:00 PM CDT - 06/11/2024 11:59 PM CDT Hospital Encounter [facility] Health Imaging Services - Radiology [address] [place] [id number] Discharge Disposition: Home or Self Care from Last 3 Months Family History Medical History Relation Name Comments CAD (Coronary Artery Disease) Father CAD (Coronary Artery Disease) Mother Alcohol abuse Sister 1 Tuberculosis Sister 1 Alcohol abuse Sister 2 Relation Name Status Comments Father Mother Sister 1 Sister 2 Social History Tobacco Use Types Packs/Day Years [...] 05/24/2015 1:52 PM CDT Plan of Treatment Health Maintenance Due Date Last Done Comments BONE DENSITY TESTING 1955 COLOGUARD (AGES 45-75) - COL ON CA SCREENING 1955 COLON MONITORING 1953 COLONOSCOPY - COLON CA SCREENING 1953 CT COLONOGRAPHY - COLON CA SCREENING 1955 Colorectal Cancer Screening 1953 FIT - COLON CA SCREENING 1953 FLEX SIG - COLON CA SCREENING 1955 MAMMOGRAM 1955 MEDICARE AWV ? 12 MONTHS 1955 HEPATITIS C SCREENING 01/03/1971 DTAP/TDAP/TD VACCINES (1 - Tdap) 01/08/1972 PNEUMOCOCCAL VACCINE 50+ (1 of 1 - PCV) 2003 ZOSTER VACCINE (1 of 2) 2003 COVID-19 VACCINE ( - 2023-2 5 season) 2024 INFLUENZA VACCINE (#1) 2024 DEPRESSION SCREENING 08/13/2024 Respiratory Syncytial Virus (RSV) Vaccine Pt: or over 60 yrs (1 - 1-dose 75+ series) 01/08/2028 HEPATITIS B VACCINE Aged Out No longe r eligible based on patient's age to complete this topic HIB VACCINE Aged Out No longer eligi ble based on patient's age to complete this topic HPV VACCINE Aged Out No longer eligi ble based on patient's age to complete this topic MENINGOCOCCAL (Group B) VACCINE Aged Out No longer eligible based on patient's age to complete this topic MENINGOCOCCAL VACCINE Aged Out No jorge kofi eligible based on patient's age to complete this topic Procedures Procedure Name Priority Date/Time Associated Diagnosis Comments XR LUMBAR SPINE 4VW OR MORE Routine 06/11/2024 1:42 PM CDT Rheu arthritis w rheu factor mult site w/o org/sys involv (HCC) Other chronic back pain Chronic bilateral thoracic [...] multiple sites without organ or systems involvement ([facility]) M54.89: Other dorsalgia G89.29: Other chronic pain [...] MD on 06/11/2024 4:14 PM Tracie Ponce EVENT PRODUCER-PRODUCT EXAMINER DIAGNOSTIC IMAG ING ORDERABLES from Last 3 Months Care Teams Mail Superintendent Relationship Specialty Start Date End Date Jorge Sweeney MD [address] [place] [address] PCP - General Family Medicine 03/01/15
== END 2024-09-02 10:12 | disposition home or self-care (01) ==
LOC: ANHIMG 10:13
PROVIDERS: PCP Family Medicine Adolescent Medicine; Visit Provider Nurse Practitioner Family
DX: Z12.2 Encounter for screening for malignant neoplasm of respiratory organs (principal); Z87.891 Personal history of nicotine dependence
CPT/HCPCS: 71271

== ENCOUNTER 2024-09-26 05:32 | Inpatient (IN) | payer MEDICARE, OTHER, SELFPAY ==
[2024-09-26] VITALS (37 sets, daily range): BP systolic 70–126; BP diastolic 41–84; PULSE 67–93; RESP 12–23; TEMP 36.8; O2SAT 91–100; BMI 29.5
--- NOTE | ~2024-09-26 | US_ITS ---
EXAMINATION: US right upper quadrant DATE: 09/26/2024 09:59 INDICATION: Abnormal liver function tests. TECHNIQUE: Multiple grayscale and Doppler ultrasound images of the abdomen were obtained. COMPARISON: CT abdomen and pelvis 09/26/2024 FINDINGS: The visualized portions of the head and body of the pancreas are normal. Calcifications in the liver are consistent with old granulomatous disease. There is normal flow in main portal vein. Th e gallbladder is normal in size. No gallstones or gallbladder wall thickening. There was no sonograph ic Young's sign. The common duct is normal and measures 5 mm. IMPRESSION: 1. No etiology for abnormal liver function tests. Reviewed, dictated and finalized at location A. E OPERATOR CONTACT LENS
--- NOTE | ~2024-09-26 | CT_ITS ---
EXAMINATION: CT abdomen pelvis w con DATE: 09/26/2024 08:18 INDICATION: Generalized abdominal pain. TECHNIQUE: Computed tomography (CT) of the abdomen and pelvis was performed with 100 mL Omnipaque 350 intravenous contrast. Automated exposure control and iterative reconstruction technique were employe d. The dose-length product was 656.44 mGy-cm. COMPARISON: Chest CT 09/02/2024 FINDINGS: The visualized portions of the lung bases demonstrate mild atelectasis. Calcified right nnamdi g nodules and calcified right hilar and mediastinal lymph nodes are consistent with old granulomatous disease. No pleural effusion. The heart size is normal. No pericardial effusion. There are calcifica tions of the aortic valve. There is a small sliding hiatal hernia. Calcifications in the liver and sp chet are consistent with old granulomatous disease. The gallbladder, pancreas, and adrenal glands are normal. There are cysts in the kidneys measuring up to 3.3 cm on the left. There is diverticulosis o f the colon without evidence of diverticulitis. There are no dilated loops of bowel. The appendix is normal. 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 There are no pathologically enlarged lymph nodes. There is no free intraperitoneal fluid. There is moderate th oracic spondylosis and mild lumbar spondylosis. There is mild chronic anterior wedging of multiple lo wer thoracic vertebral bodies. IMPRESSION: 1. Small sliding hiatal hernia. Reviewed, dictated and finalized at location A. NOSTIC RADIOLOGIC TECHNOLOGIST
--- OUTSIDE RECORDS SUMMARY | 2024-09-26 05:34 | XMS_ITS | Referral Summary ---
Author Organization [facility] Address [address] [place] [phone] Care Team Providers Care Accounts Receivable Analyst Name Role Phone Jorge Sweeney MD Primary Care Prov ider Encounters Date Type Department Care Team Description 09/18/2024 1:34 PM PLANT FLOOR AUTOMATION MANAGER - 09/18/2024 11:59 PM PLANT FLOOR AUTOMATION MANAGER Hospital Encounter [facility] Imaging and Radiology [address] [place] [phone] Screening mammogram, encounter for Discharge Disposition: Discharge to home or self care 09/18/2024 11:00 AM PLANT FLOOR AUTOMATION MANAGER - 09/18/2024 11:59 PM [facility] Hospital Encounter [facility] Vascular Lab [address] [place] [phone] Other specified disorders of bone density and structure, unspecified site; Bilateral carotid artery stenosis Discharge Disposition: Discharge to home or self care 09/18/2024 1:30 PM PLANT FLOOR AUTOMATION MANAGER - 09/18/2024 11:59 PM [facility] Hospital Encounter [facility] Imaging and Radiiology [address] [place] [phone] Other specified disorders of bone density and structure, unspecified site Discharge Disposition: Discharge to home or self care from Last 3 Months Allergies Active Allergy Reactions Criticality Noted Date Comments Aspirin Rash Medium 04/12/2015 Tolerated ASA for CEA 07/23 Atorvastatin Other (See comments) Low 04/12/2015 Other Other (See comments) Low 04/12/2015 Hmg-coa-r Inhibitors Medications simvastatin (ZOCOR) 40 mg tablet Take 40 mg by mouth nightly Active oxybutynin XL (DITROPAN-XL) 5 mg 24 hr tablet Take 5 mg by mouth nightly [address] (CYMBALTA) 60 mg capsule Take 60 mg by mouth nightly 5 Active methotrexate 2.5 mg tablet Take 20 mg by mouth once a week Take on Wednesdays 5 Active gabapentin (NEURONTIN) 300 mg capsule Take 900 mg by mouth nightly 5 Active mv-min/iron/folic /calcium/vitK (WOMEN'S MULTIVITAMIN ORAL) Take 1 tablet by mouth nightly Active coenzyme Q10 400 mg capsule Take 200 mg by mouth daily Active magnesium oxide (BOUCHER ORAL) Take by mouth as needed Boucher Laxative Active folic acid (FOLVITE) 1 mg tablet Take 800 mcg by mouth daily 5 Active acetaminophen (TYLENOL) 500 mg tablet Take 500 mg by mouth every 6 (six) hours as needed for pain Active ibuprofen (ibuprofen) 200 mg tab/cap Take 400 mg by mouth every 6 (six) hours as needed for pain Active golimumab (SIMPONI ARIA IV) Infuse into a venous catheter every 6 (six) weeks Active clopidogreL (PLAVIX) 75 mg tabletIndications :Thrombosis Prevention Take 1 tablet (75 mg total) by mouth daily 90 tablet 3 0 Active Active Problems Problem Noted Date Diagnosed Date 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 Overview (06/28/2020): Added automatically from request for surgery [id number] Social History Tobacco Use Types Packs/Day Years Used Date Smoking Tobacco: Every Day Cigarettes Smokeless Tobacco: Never Tobacco Cessation:Ready to Q uit: Yes; Counseling Given: Yes Alcohol Use Standard Drinks/Week Comments Yes 10 (1 standard drink = 0.6 oz pu re alcohol) 1-2 times week Comments Unknown Sex and Gender Information Value Date Recorded Sex Assigned at Not on file Legal Sex Female 3:23 AM PLANT FLOOR AUTOMATION MANAGER Gender Identity Not on file Sexual Orientation Not on file Last Filed Vital Signs Vital Sign Reading Time Taken Comments Blood Pressure 130/72 07/24/2020 12:25 PM PLANT FLOOR AUTOMATION MANAGER Pulse 88 07/24/2020 1:00 PM PLANT FLOOR AUTOMATION MANAGER Temperature 36.7 C (98 F) 07/24/2020 4:00 AM PLANT FLOOR AUTOMATION MANAGER Respiratory Rate 16 07/24/2020 1:00 PM PLANT FLOOR AUTOMATION MANAGER Oxygen Saturation 98% 07/24/2020 1:00 PM PLANT FLOOR AUTOMATION MANAGER Inhaled Oxygen Concentration - - Weight 91.6 kg (202 lb) 07/23/2020 11:53 AM PLANT FLOOR AUTOMATION MANAGER Height 167.6 cm (5' 6 ) 07/23/2020 11:53 AM PLANT FLOOR AUTOMATION MANAGER Body Mass Index 32.6 07/23/2020 11:53 AM PLANT FLOOR AUTOMATION MANAGER Plan of Treatment Not on file Procedures Procedure Name Priority Date/Time Associated Diagnosis Comments DEXA AXIAL SKELETON BONE DENSITY 1 OR MORE SITES Schedule Routine, Read Routine (OP Routine) 09/18/2024 2:17 PM PLANT FLOOR AUTOMATION MANAGER Other specified disorders of bone density and structure, unspecified site SCREENING MAMMOGRAM BILATERAL W CHARAN Schedule Routine, Read Routine (OP Routine) 09/18/2024 1:56 PM PLANT FLOOR AUTOMATION MANAGER Screening mammogram, encounter for US CAROTIDS DUPLEX BILATERAL Schedule Routine, Read Routine (OP Routine) 09/18/2024 11:36 AM PLANT FLOOR AUTOMATION MANAGER Bilateral carotid artery stenosis from Last 3 Months Results * Dexa Axial Skeleton Bone Density 1 or 2 Site (09/18/2024 2:17 PM PLANT FLOOR AUTOMATION MANAGER) Anatomical Region Laterality Modality Body N/A Other 09/19/2024 8:29 AM PLANT FLOOR AUTOMATION MANAGER Impressions 09/19/2024 8:29 AM PLANT FLOOR AUTOMATION MANAGER Osteopenia. Consider follow-up bone densitometry evaluation in 2-3 years. Electronically signed by: Geraldo Martin M.D. Narrative 09/19/2024 8:29 AM PLANT FLOOR AUTOMATION MANAGER EXAMINATION: DEXA AXIAL SKELETON BONE DENSITY 1 OR MORE SITES DATE: 09/18/2024 1:30 PM HISTORY: 69 [id number] postmenopausal woman; other specified disorders of bone density and structure COMPARISON: 08/02/2022 FINDINGS: The bone densitometry of the L1-L4 region, the left femoral neck and the total hip was calculated using dual-energy x-ray absorptiometry. Bone mineral density (BMD) of the lumbar spine (L1-L4): T-score -1.4, previously -1.0 Bone mineral density (BMD) of the femoral neck: T-score -1.8, previously -1.2 Bone mineral density (BMD) of the total hip: T-score -1.4, previously -0.8 Procedure Note Geraldo Martin MD - 09/19/2024 EXAMINATION: DEXA AXIAL SKELETON BONE DENSITY 1 OR MORE SITES DATE: 09/18/2024 1:30 PM HISTORY: 69 [id number] postmenopausal woman; other specified disorders of bone density and structure COMPARISON: 08/02/2022 FINDINGS: The bone densitometry of the L1-L4 region, the left femoral neck and the total hip was calculated using dual-energy x-ray absorptiometry. Bone mineral density (BMD) of the lumbar spine (L1-L4): T-score -1.4, previously -1.0 Bone mineral density (BMD) of the femoral neck: T-score -1.8, previously -1.2 Bone mineral density (BMD) of the total hip: T-score -1.4, previously -0.8 IMPRESSION: Osteopenia. Consider follow-up bone densitometry evaluation in 2-3 years. Electronically signed by: Geraldo Martin M.D. Lucrecia Jenkins NP IM DXA PROCEDURES Final Resul t * Screening Mammogram Bilateral W Charan (09/18/2024 1:56 PM PLANT FLOOR AUTOMATION MANAGER) Anatomical Region Laterality Modality Breast Bilateral Mammography 09/18/2024 2:41 PM PLANT FLOOR AUTOMATION MANAGER Impressions 09/18/2024 2:41 PM PLANT FLOOR AUTOMATION MANAGER No evidence of malignancy in either breast. FINAL ASSESSMENT: BI-RADS Category 1: Negative. RECOMMENDATION: Recommend return for annual screening mammogram in 12 months. Electronically signed by: KRISTA CRAWFORD MD Narrative 09/18/2024 2:41 PM PLANT FLOOR AUTOMATION MANAGER EXAMINATION: BILATERAL SCREENING MAMMOGRAM COMPARISON: All prior mammograms dating back to 2013. TECHNIQUE: Full-field 2D and digital breast tomosynthesis (DBT) images were obtained. CAD was utilized. BREAST PARENCHYMAL COMPOSITION: There are scattered areas of fibroglandular density. FINDINGS: There is no suspicious mass, calcification, or distortion in either breast. us Self Screening Mammogram IMG MAMMO PROCEDURES Fi nal Result * US Carotids Duplex Bilateral (09/18/2024 11:36 AM PLANT FLOOR AUTOMATION MANAGER) Anatomical Region Laterality Modality Vascular Bilateral Ultrasound 09/18/2024 1:04 PM PLANT FLOOR AUTOMATION MANAGER Impressions 09/18/2024 1:04 PM PLANT FLOOR AUTOMATION MANAGER No sonographic evidence of hemodynamically significant narrowing of the left internal carotid artery. Findings consistent with 50% to 69% stenosis of the right internal carotid artery. Numbers to know for Carotid Artery Stenosis sonograms: Peak systolic velocities of ICA < 125 cm/s and ICA/CCA ratio <2 corresponds to 0-50% stenosis. Peak systolic velocities of ICA 125-230 cm/s and ICA/CCA ratio 2.0-4.0 corresponds to 50-69% stenosis. Peak systolic velocities of ICA >230 and ICA/CCA ratio >4.6 corresponds to 70-79% stenosis. Electronically signed by: Geraldo Martin M.D. Narrative 09/18/2024 1:04 PM PLANT FLOOR AUTOMATION MANAGER EXAMINATION: US CAROTIDS DUPLEX BILATERAL DATE: 09/18/2024 11:00 AM HISTORY: Encounter for Surgical Aftercare Following Surgery on the Circulatory System TECHNIQUE: Ultrasound of the common and internal carotid arteries was performed with a linear transducer with color and spectral Doppler supplementation. COMPARISON: None. Findings on the right: Peak systolic velocities in centimeters per second: Right common carotid artery: 74 Right external carotid artery: 80 Right internal carotid artery: proximal 149, mid 67, distal 60 Right ICA /CCA ratio: 2.01 Right vertebral artery: normal cephalad flow Findings on the left: No visualized narrowing is seen in the common carotid or internal carotid arteries. Peak systolic velocities in centimeters per second: Left common carotid artery: 69 Left external carotid artery: 117 Left internal carotid artery: proximal 106, mid 69, distal 75 Left ICA /CCA ratio: 1.54 Left vertebral artery: normal cephalad flow Antegrade flow noted bilaterally. Calcified plaque is noted bilaterally. Procedure Note Geraldo Martin MD - 09/18/2024 EXAMINATION: US CAROTIDS DUPLEX BILATERAL DATE: 09/18/2024 11:00 AM HISTORY: Encounter for Surgical Aftercare Following Surgery on the Circulatory System TECHNIQUE: Ultrasound of the common and internal carotid arteries was performed with a linear transducer with color and spectral Doppler supplementation. COMPARISON: None. Findings on the right: Peak systolic velocities in centimeters per second: Right common carotid artery: 74 Right external carotid artery: 80 Right internal carotid artery: proximal 149, mid 67, distal 60 Right ICA /CCA ratio: 2.01 Right vertebral artery: normal cephalad flow Findings on the left: No visualized narrowing is seen in the common carotid or internal carotid arteries. Peak systolic velocities in centimeters per second: Left common carotid artery: 69 Left external carotid artery: 117 Left internal carotid artery: proximal 106, mid 69, distal 75 Left ICA /CCA ratio: 1.54 Left vertebral artery: normal cephalad flow Antegrade flow noted bilaterally. Calcified plaque is noted bilaterally. IMPRESSION: No sonographic evidence of hemodynamically significant narrowing of the left internal carotid artery. Findings consistent with 50% to 69% stenosis of the right internal carotid artery. Numbers to know for Carotid Artery Stenosis sonograms: Peak systolic velocities of ICA < 125 cm/s and ICA/CCA ratio <2 corresponds to 0-50% stenosis. Peak systolic velocities of ICA 125-230 cm/s and ICA/CCA ratio 2.0-4.0 corresponds to 50-69% stenosis. Peak systolic velocities of ICA >230 and ICA/CCA ratio >4.6 corresponds to 70-79% stenosis. Electronically signed by: Geraldo Martin M.D. us Lucrecia Jenkins NP IMG US PROCEDURES Final Result from Last 3 Months Insurance MEDICARE [employer] [address] [employer] CHOICE MEDICARE PPO Advance Directives For more information, please contact: [phone] * Full Code (Latest Code Status on File) Date Activated Date Inactivated Comments 07/23/2020 5:38 PM 07/24/2020 9:05 PM Care Teams Accounts Receivable Analyst Relationship Specialty Start Date End Date Jorge Sweeney MD [address] [place] [address] PCP - General 12/02/20
--- OUTSIDE RECORDS SUMMARY | 2024-09-26 05:34 | XMS_ITS | Clinical Summary ---
Author Organization [facility] Address [address] [facility] [address] [phone] Phone Care Team Providers Care Head Animal Trainer Name Role Phone Jorge Sweeney MD Primary Care Provider [phone] Allergies Active Allergy Reactions Criticality Noted Date [...] Used Date Smoking Tobacco: Former Cigarettes 1 61.1 S tarted: 08/24/1963 Passive Smoke Exposure: Past Smokeless Tobacco: Never Alcohol Use Standard Drinks/Week Comments Not Currently 0 (1 standard drink = 0.6 oz pur e alcohol) Comments Unknown Sex and Gender Information Value Date Recorded Sex Assigned at Not on file Legal Sex Female 10:54 AM STERILE PROCESSING TECH Gender Identity Not on file Sexual Orientation Not on file Last Filed Vital Signs Vital Sign Reading Time Taken Comments Blood Pressure 122/62 10/18/2023 3:09 PM STERILE PROCESSING TECH Pulse 73 10/18/2023 3:09 PM STERILE PROCESSING TECH Temperature - - Respiratory Rate - - Oxygen Saturation 96% 09/13/2023 8:47 AM STERILE PROCESSING TECH Inhaled Oxygen Concentration - - Weight 93 kg (205 lb) 10/18/2023 3:09 PM STERILE PROCESSING TECH Height 167.6 cm (5' 6 ) 10/18/2023 3:09 PM STERILE PROCESSING TECH Body Mass Index 33.09 10/18/2023 3:09 PM STERILE PROCESSING TECH Plan of Treatment Upcoming Encounters Date Type Department Care Team (Late st Contact Info) Description 10/22/2024 2:00 PM CDT Office Visit [facility] Heart and Vascular - [address] [facility] [phone] [facility] [address] [place] [address] Shari Lares FNP [address] [facility] [address] [place] [address] Health Maintenance Due Date Last Done Comments DTAP/TDAP/TD VACCINES (1 - Tdap) 01/08/1972 BREAST CANCER SCREENING 1993 FIT-DNA Q 3 [...] Screening 03/05/2034 OSTEOPOROSIS SCREENING Completed 08/02/2022 Insurance [facility] MEDICARE PART A AND B Care Teams Head Animal Trainer Relationship Specialty Start Date End Date Jorge Sweeney MD [address] [place] [phone] PCP - General Family Practice 10/10/23
--- OUTSIDE RECORDS SUMMARY | 2024-09-26 05:34 | XMS_ITS | Clinical Summary ---
Author Organization [facility] Address [address] [place] [address] Care Team Providers Care Drop Hammer Mechanic Name Role Phone Jorge Sweeney MD Primary Care Prov ider Allergies Active Allergy Reactions Criticality Noted Date [...] (06/28/2020): Added automatically from request for surgery [id number] Encounters Date Type Department Care Team Description 09/18/2024 1:34 PM DIRECTOR OF SUPPLY CHAIN - 09/18/2024 11:59 PM [facility] Hospital Encounter [facility] Imaging and Radiology [address] [place] [phone] Screening mammogram, encounter for Discharge Disposition: Discharge to home or self care 09/18/2024 1:30 PM DIRECTOR OF SUPPLY CHAIN - 09/18/2024 11:59 PM [facility] Hospital Encounter [facility] Imaging and Radiiology [address] [place] [phone] Other specified disorders of bone density and structure, unspecified site Discharge Disposition: Discharge to home or self care 09/18/2024 11:00 AM DIRECTOR OF SUPPLY CHAIN - 09/18/2024 11:59 PM [facility] Hospital Encounter [facility] Vascular Lab [address] [place] [address] Other specified disorders of bone density and structure, unspecified site; Bilateral carotid artery stenosis Discharge Disposition: Discharge to home or self care from Last 3 Months Surgical History Surgery Date Site/Laterality Comments NO PAST SURGERIES Medical History Medical History Date Comments Sleep apnea Histoplasmosis GERD (gastroesophageal reflux disease) Urinary urgency RA (rheumatoid arthritis) (HCC) Smoking Family History Medical History Relation Name Comments Cancer Brother 1 Diabetes Brother 2 Heart disease Father Depression Mother Heart disease Mother Stroke Mother Breast cancer Neg Hx Ovarian cancer Neg Hx Thyroid cancer Neg Hx Relation Name Status Comments Brother 1 Brother 2 Other Father Mother Social History Tobacco Use Types [...] on file Legal Sex Female 3:23 AM DIRECTOR OF SUPPLY CHAIN Gender Identity Not on file Sexual Orientation Not on file Obstetrics History Para Term AB IAB SAB Ectopic Multiple Livin g Live Births 8 7 7 Date Outcome GA Total Labor Labor/2nd/3rd Weight Sex Type Anes PTL Brianne A1 A5 Name Clin Term Term Term Term Term Term Term Last Filed Vital Signs Vital Sign Reading Time Taken Comments Blood Pressure 130/72 07/24/2020 12:25 PM DIRECTOR OF SUPPLY CHAIN Pulse 88 07/24/2020 1:00 PM DIRECTOR OF SUPPLY CHAIN Temperature 36.7 C (98 F) 07/24/2020 4:00 AM DIRECTOR OF SUPPLY CHAIN Respiratory Rate 16 07/24/2020 1:00 PM DIRECTOR OF SUPPLY CHAIN Oxygen Saturation 98% 07/24/2020 1:00 PM DIRECTOR OF SUPPLY CHAIN Inhaled Oxygen Concentration - - Weight 91.6 kg (202 lb) 07/23/2020 11:53 AM DIRECTOR OF SUPPLY CHAIN Height 167.6 cm (5' 6 ) 07/23/2020 11:53 AM DIRECTOR OF SUPPLY CHAIN Body Mass Index 32.6 07/23/2020 11:53 AM DIRECTOR OF SUPPLY CHAIN Plan of Treatment Health Maintenance Due Date Last Done Comments Colon Cancer Screening-Colonoscopy 1955 Depression Screening 1955 Hepatitis C Screening 1955 DTaP/Tdap/Td Vaccine (1 - Tdap) 01/08/1964 Hepatitis B Screening 1971 Well Visit 65+ 2018 Pneumococcal vaccine 65+ (2 of 2 - PPSV23 or PCV20) 08/13/2019 06/18/2019 Zoster Vaccine (2 of 2) 09/26/2019 08/01/2019 Fall Risk Assessment 07/24/2021 07/24/2020 Influenza Vaccine (#1) 2024 06/18/2019, 2013 Breast Cancer Screening-Mammogram 09/18/2025 09/18/2024, 08/02/2022, 12/09/2020, Additional history exists Osteoporosis Screening-Bone Density Scan 09/18/2026 09/18/2024, 08/02/2022 Procedures Procedure Name Priority Date/Time Associated Diagnosis Comments DEXA AXIAL SKELETON BONE DENSITY 1 OR MORE SITES Schedule Routine, Read Routine (OP Routine) 09/18/2024 2:17 PM DIRECTOR OF SUPPLY CHAIN Other specified disorders of bone density and structure, unspecified site SCREENING MAMMOGRAM BILATERAL W CHARAN Schedule Routine, Read Routine (OP Routine) 09/18/2024 1:56 PM DIRECTOR OF SUPPLY CHAIN Screening mammogram, encounter for US CAROTIDS DUPLEX BILATERAL Schedule Routine, Read Routine (OP Routine) 09/18/2024 11:36 AM DIRECTOR OF SUPPLY CHAIN Bilateral carotid artery stenosis from Last 3 Months Results * Dexa Axial Skeleton Bone Density 1 or 2 Site (09/18/2024 2:17 PM DIRECTOR OF SUPPLY CHAIN) Anatomical Region Laterality Modality Body N/A Other 09/19/2024 8:29 AM DIRECTOR OF SUPPLY CHAIN Impressions 09/19/2024 8:29 AM DIRECTOR OF SUPPLY CHAIN Osteopenia. Consider follow-up bone densitometry evaluation in 2-3 years. Electronically signed by: Geraldo Martin M.D. Narrative 09/19/2024 8:29 AM DIRECTOR OF SUPPLY CHAIN EXAMINATION: DEXA AXIAL SKELETON BONE DENSITY 1 OR MORE SITES DATE: 09/18/2024 1:30 PM HISTORY: 69 osvpa-mobi-czr postmenopausal woman; other specified disorders of bone [...] SITES DATE: 09/18/2024 1:30 PM HISTORY: 69 wofor-zarm-ssw postmenopausal woman; other specified disorders of bone [...] by: Geraldo Martin M.D. Lucrecia Jenkins NP IMG DXA PROCEDURES Final Resul t * Screening Mammogram Bilateral W Charan (09/18/2024 1:56 PM DIRECTOR OF SUPPLY CHAIN) Anatomical Region Laterality Modality Breast Bilateral Mammography 09/18/2024 2:41 PM DIRECTOR OF SUPPLY CHAIN Impressions 09/18/2024 2:41 PM DIRECTOR OF SUPPLY CHAIN No evidence of malignancy in either breast. FINAL ASSESSMENT: BI-RADS Category 1: Negative. RECOMMENDATION: Recommend return for annual screening mammogram in 12 months. Electronically signed by: MD Taryn JOHNS 09/18/2024 2:41 PM DIRECTOR OF SUPPLY CHAIN EXAMINATION: BILATERAL SCREENING MAMMOGRAM COMPARISON: All prior mammograms dating back to 2013. TECHNIQUE: Full-field 2D and digital breast tomosynthesis (DBT) images were obtained. CAD was utilized. BREAST PARENCHYMAL COMPOSITION: There are scattered areas of fibroglandular density. FINDINGS: There is no suspicious mass, calcification, or distortion in either breast. Self Screening Mammogram IMG MAMMO PROCEDURES Fi nal Result * US Carotids Duplex Bilateral (09/18/2024 11:36 AM DIRECTOR OF SUPPLY CHAIN) Anatomical Region Laterality Modality Vascular Bilateral Ultrasound 09/18/2024 1:04 PM DIRECTOR OF SUPPLY CHAIN Impressions 09/18/2024 1:04 PM DIRECTOR OF SUPPLY CHAIN No sonographic evidence of hemodynamically significant narrowing [...] Geraldo Martin M.D. Narrative 09/18/2024 1:04 PM DIRECTOR OF SUPPLY CHAIN EXAMINATION: US CAROTIDS DUPLEX BILATERAL DATE: 09/18/2024 [...] Geraldo Martin M.D. us Lucrecia Jenkins NP [facility] PROCEDURES Final Result from Last 3 Months Insurance MEDICARE [facility] Address: [facility] [address] [place] [address] [facility] MEDICARE [employer] MEDICARE PPO Advance Directives For more information, please contact: [phone] * Full Code (Latest Code Status on File) Date Activated Date Inactivated Comments 07/23/2020 5:38 PM 07/24/2020 9:05 PM Care Teams Drop Hammer Mechanic Relationship Specialty Start Date End Date Jorge Sweeney MD [address] [place] [address] PCP - General 12/02/20
--- OUTSIDE RECORDS SUMMARY | 2024-09-26 05:34 | XMS_ITS | Patient Health Summary ---
Author Organization [facility] Address [address] [place] [address] Care Team Providers Care Inspector Agricultural Commodities Name Role Phone Jorge Sweeney MD Primary Care Provider + Note from [facility],non-owned Affiliates and Associated Physician Practices is amultiple site organization consisting of ambulatory clinics and hospital sitesin [place], [place], [place] and [place]. This disclosure is being madepursuant to the Care Everywhere program and may not contain all information available regarding this patient. Last updated 18.[facility] Allergies * Aspirin(Rash) -Low Criticality * Hmg-Coa-R [...] by mouth once daily * Probiotic Product ([email or web address] PO) Take by mouth once daily * [...] PM Narrative 06/11/2024 4:14 PM CDT PROCEDURE: XR LUMBAR SPINE 4VW OR MORE [...] MD on 06/11/2024 4:14 PM Tracie Ponce ELECTRIC MOTOR REPAIRMAN-COMPUTER SYSTEMS MANAGER DIAGNOSTIC IMAG ING ORDERABLES * (ABNORMAL) CBC [...] 7:54 PM CDT Narrative Resulting Agency Comment [facility] [address] [place] [phone] Kanu Bustos MD LAB - HEMATOLOGY ORD [...] 7:54 PM CDT Narrative Resulting Agency Comment [facility] [address] [place] [phone] Kanu Bustos MD LAB - CHEMISTRY [place] [facility] Organization Address City/State/ZIP Co de Phone Number [facility] ACCOUNT BILL * XR HANDS BILAT SINGLE VIEW (04/12/2015 4:51 PM CDT) Anatomical Region Laterality Modality Wrist / Hand, Upper Extremity Co mputed Radiography Narrative 04/13/2015 2:02 PM CDT Kanu Bustos MD 04/13/2015 2:02 PM Bilateral hand x-ray: Mild osteopenia of the wrists no evidence of chondrocalcinosis, 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 secondary subacromial bursitis intact rotator cuff see injection note Kanu Bustos MD Office [phone] Call Directly [phone] Kanu Bustos MD US ORDERABLES * CYCLIC CITRUL PEPTIDE ANTIBODY IGG/IGA (CCP) (04/12/2015 4:19 PM CDT) CCP Antibodies IgG/IgA 2 0 - 19 units [facility] ACCOUNT BILL Comment: Negative <20 Weak positive 20 - 39 Moderate positive 40 - 59 Strong positive >59 BLOOD SPECIMEN / Unknown 04/12/2015 4:19 PM CDT 04/12/2015 7:41 PM CDT Narrative Resulting Agency Comment [facility] [address] [phone] Kanu Bustos MD LAB - SEROLOGY ORDER SONIA [facility] ACCOUNT BILL * W REFLX (POSITIVE) (PO REF LAB) (04/12/2015 4:19 PM CDT) Direct Negative Negative [facility] ACCOUNT BILL Blood specimen (specimen) BLOOD SPECIMEN / Unknown 04/12/2015 4:19 PM CDT 04/12/2015 7:41 PM CDT Narrative Resulting Agency Comment [facility] [address] [phone] Kanu Bustos MD LAB - SEROLOGY ORDER SONIA [facility] ACCOUNT BILL * (ABNORMAL) C-REACTIVE PROTEIN (04/12/2015 4:19 PM CDT) C-Reactive Protein 0.37(H) <0.30 mg/dL [facility] ACCOUNT BILL Blood specimen (specimen) BLOOD SPECIMEN / Unknown 04/12/2015 4:19 PM CDT 04/12/2015 7:41 PM CDT Narrative Resulting Agency Comment [facility] [address] [place] [phone] Kanu Bustos MD LAB - CHEMISTRY CA RESENDIZ [facility] ACCOUNT BILL * SED RATE WESTERGREN (04/12/2015 4:19 PM CDT) Erythrocyte Sedimentation Rate Westergren 23 0 - 30 mm/hr [facility] ACCOUNT BILL Blood specimen (specimen) BLOOD SPECIMEN / Unknown 04/12/2015 4:19 PM CDT 04/12/2015 7:41 PM CDT Narrative Resulting Agency Comment [facility] [address] [place] [phone] Kanu Bustos MD LAB - HEMATOLOGY ORD ERABLES [facility] ACCOUNT BILL Care Teams Inspector Agricultural Commodities Relationship Specialty Start Date End Date Jorge Sweeney MD [address] [address] PCP - General Family Medicine 03/01/15
--- OUTSIDE RECORDS SUMMARY | 2024-09-26 05:34 | XMS_ITS | Clinical Summary ---
Author Organization [facility] [employer] Address [address] [place] [address] Care Team Providers Care Editor & Co Founder Name Role Phone Jorge Sweeney MD Primary Care Provider + Source Comments [facility] [employer],non-owned Affiliates and Associated Physician Practices is amultiple site organization consisting of ambulatory clinics and hospital sitesin [place], [place], [place] and [place]. This disclosure is being madepursuant to the Care Everywhere program and may not contain all information available regarding this patient. Last updated 18.[facility] Allergies Active Allergy Reactions Criticality Noted Date [...] by mouth once daily Active Probiotic Product ([employer] [facility] PO) Take by mouth once daily [...] medications (not anticoagulants) long- term use 04/12/2015 Family History Medical History Relation Name Comments [...] CA SCREENING 1955 MAMMOGRAM 1955 MEDICARE AWV 12 MONTHS 1953 HEPATITIS C SCREENING 01/03/1971 [...] on patient's age to complete this topic Care Teams Editor & Co Founder Relationship Specialty Start Date End Date Jorge Sweeney MD [address] [place] [address] PCP - General Family Medicine 03/01/15
--- OUTSIDE RECORDS SUMMARY | 2024-09-26 05:34 | XMS_ITS | Referral Summary ---
Author Organization [facility] [email or web address] Address [address] [place] [address] Care Team Providers Care Associate Professor Of History Name Role Phone Jorge Sweeney MD Primary Care Provider + Source Comments [facility] [email or web address],non-owned Affiliates and Associated Physician Practices is amultiple site organization consisting of ambulatory clinics and hospital sitesin [place], [place], [place] and [place]. This disclosure is being madepursuant to the Care Everywhere program and may not contain all information available regarding this patient. Last updated 18.[email or web address] Allergies Active Allergy Reactions Criticality Noted Date [...] by mouth once daily Active Probiotic Product ([employer] HEALTH PO) Take by mouth once daily [...] CDT Plan of Treatment Not on file Administered Medications Care Teams Associate Professor Of History Relationship Specialty Start Date End Date Jorge Sweeney MD [address] [place] [address] PCP - General Family Medicine 03/01/15
--- OUTSIDE RECORDS SUMMARY | 2024-09-26 05:34 | XMS_ITS | Continuity of Care Document ---
Author Organization [facility]. If a dditional information is needed, contact Health Information Management at [phone] Address [address] [place] [address] Phone Care Team Providers Care Assistant Nurse Manager Name Role Phone Unavailable Unavailable Unavailable Unavailable Unavailable Unavailable Unavailable Unavailable Unavailable Unavailable Unavailable Unavailable Problems Fall Onset:01-Feb-2024 Zak Gorman MD Injury of face Onset:01-Feb-2024 Zak Gorman MD Medications acetaminophen 325 MG / HYDROcodone bitartrate 5 MG Oral Tablet [[place]];1 TAB X1ED Quantity:1 Zak Gorman MD Start:14-Toi-7901Ajo:2023 Comments:[id number] Administration Instructions:If a pain scale for use is not indicated, than the presumedpain scale indication is 4-6 (MODERATE) Procedures CT C-SPINE W/O CONTRASTResult:[facility] Name: BEVERLEY MAZARIEGOS [facility] Phys: [place] [address] : 1955 Age: 69 Sex: F Acct: [id number] Loc: K.ERLJ PHONE #: [phone] Exam Date: 02/01/2024 Status: REG ER FAX #: Radiology No: Unit No: [id number] EXAMS: [id number] CT C- SPINE W/O IV CONTRAST INDICATION: FX - Fracture; FALL/HEAD INJURY EXAMINATION: CT CERVICAL SPINE - CT Spine Cervical W/O Contrast Injection TECHNIQUE: Helically acquired images were obtained of the cervical spine. 2D reformatted images were reviewed. A radiation dose optimization technique was used for this scan. IV Contrast dosage and agent: None. COMPARISON: None. FINDINGS: VERTEBRAE: No fracture or traumatic subluxation. No discrete lytic or blastic abnormality. Normal alignment. Normal craniocervical junction and cervicothoracic junction. There is anterior spurring at the C4-5 level. DISCS and SPINAL CANAL: Disc heights are preserved. No critical stenosis. NECK SOFT TISSUES: No prevertebral soft tissue swelling. There is no cervical adenopathy. LUNG APICES: Clear. IMPRESSION: No evidence of acute cervical spinal fracture or spondylolisthesis. at 1409 Reported and signed by: LEONARDA HEMPHILL MD CC: Dictated Date/Time: 02/01/2024 (3673)Technologist: ASHLIE MEDELLIN Transcribed Date/Time: 02/01/2024 (5684)Processing Spec: CRISTO Electronic Signature Date/Time: 02/01/2024 (4981)Orig Print D/T: S: 02/01/2024 (1077) PAGE 1 Signed Report Date:01-Feb-2024 Status:Completed CT SINUS/FACE W/O CONTRASTResult:[facility] Name: BEVERLEY MAZARIEGOS [address] [place] [address] Phys: [place] [address] : 1955 Age: 69 Sex: F Acct: [id number] Loc: K.ERLJ PHONE #: [phone] Exam Date: 02/01/2024 Status: REG ER FAX #: Radiology No: Unit No: [id number] EXAMS: [id number] CT MAXFACE W/O CONTRAST INDICATION: FX - Fracture; FALL/HEAD INJURY EXAMINATION: CT FACIAL BONES - CT Maxillofacial W/O Contrast Injection TECHNIQUE: Helically acquired images were obtained of the facial bones. A radiation dose optimization technique was used for this scan. IV Contrast dosage and agent: None. COMPARISON: None. FINDINGS: No evidence of nasal fracture. The septum is midline. Frontal sinuses are normal. Ethmoids are normal. Small maxillary mucous retention cyst or polyp within the inferior right maxillary sinus. There is narrowing of the left nasal airway. The sphenoid sinuses are unremarkable. The frontozygomatic sutures are normal. The zygomatic arches are unremarkable. TMJs middle ears and mastoids are unremarkable. The mandible and maxilla are unremarkable. Nasal bone and anterior maxillary spine are sharp. Marked soft tissue swelling identified anterior to the maxilla. There is a dental dennise within the medial aspect of the right frontal tooth. IMPRESSION: No fracture identified Marked soft tissue swelling anterior to the maxilla. There is a cavity in the right frontal tooth within the maxilla medially at 1407 Reported and signed by: LEONARDA HEMPHILL MD CC: Dictated Date/Time: 02/01/2024 (3717)Technologist: ASHLIE MEDELLIN Transcribed Date/Time: 02/01/2024 (140)Processing Spec: CRISTO Electronic Signature Date/Time: 02/01/2024 (1407)Orig Print D/T: S: 02/01/2024 (7511) PAGE 1 Signed Report Date:01-Feb-2024 Status:Completed CT HD/BRAIN W/O CONTResult:[facility] Name: BEVERLEY MAZARIEGOS [address] [place] [address] Phys: [place] [address] : 1955 Age: 69 Sex: F Acct: [id number] Loc: LexERLJ PHONE #: [phone] Exam Date: 02/01/2024 Status: REG ER FAX #: Radiology No: Unit No: [id number] EXAMS: [id number] CT HD/BRAIN W/O CONT INDICATION: HI - Head Injury; FALL/HEAD INJURY EXAMINATION: CT BRAIN - CT Head or Brain W/O Contrast Injection VizAI TECHNIQUE: Multiple axial images were obtained of the head without intravenous contrast. The protocol utilizes one or more of the following dose reduction techniques: automated exposure control, adjustment of mA and/or kV according to patient size,and/or use of iterative reconstruction technique. IV Contrast dosage and agent: None. COMPARISON: none FINDINGS: The ventricles are normal in size and show no evidence of displacement. There is periventricular low density consistent with periventricular ischemic white matter disease. Globes and orbits are unremarkable. There is a mucous retention cyst or polyp within the right maxillary sinus. Pituitary is unremarkable. No evidence of hemorrhage IMPRESSION: Negative study at 1401 Reported and signed by: LEONARDA HEMPHILL MD CC: Dictated Date/Time: 02/01/2024 (140)Technologist: ASHLIE MEDELLIN Transcribed Date/Time: 02/01/2024 (1400)Processing Spec: CRISTO Electronic Signature Date/Time: 02/01/2024 (1400)Orig Print D/T: S: 02/01/2024 (1402) PAGE 1 Signed Report Date:01-Feb-2024 Status:Completed XR KNEE 4+ VIEWS LEFTResult:[facility] Name: BEVERLEY MAZARIEGOS [address] [place] [address] Phys: [place] [address] : 1955 Age: 69 Sex: F Acct: [id number] Loc: KMiloERLJ PHONE #: [phone] Exam Date: 02/01/2024 Status: REG ER FAX #: Radiology No: Unit No: [id number] EXAMS: [id number] XR KNEE 4+ VIEWS LEFT INDICATION: FX - FRACTURE; FALL/HEAD INJURY EXAMINATION/TECHNIQUE: X-RAY - LEFT XR Knee Complete 4 Views or More 6 VIEWS COMPARISON: None. FINDINGS: No evidence of a joint effusion There are vascular calcifications. Severe medial compartment narrowing with bony eburnation. There is patellofemoral space narrowing. IMPRESSION: No evidence of a joint effusion Severe medial compartment osteoarthritis with less marked patellofemoral space osteoarthritis at 1354 Reported and signed by: LEONARDA HEMPHILL MD CC: Dictated Date/Time: 02/01/2024 (9036)Technologist: ASHLIE MEDELLIN Transcribed Date/Time: 02/01/2024 (5316)Processing Spec: CRISTO Electronic Signature Date/Time: 02/01/2024 (9754)Orig Print D/T: S: 02/01/2024 (8764) PAGE 1 Signed Report Date:01-Feb-2024 Status:Completed XR WRIST 3 VIEW BIResult:[facility] Name: BEVERLEY MAZARIEGOS [address] [place] [address] Phys: [place] [address] : 1955 Age: 69 Sex: F Acct: [id number] Loc: K.ERLJ PHONE #: [phone] Exam Date: 02/01/2024 Status: REG ER FAX #: Radiology No: Unit No: [id number] EXAMS: [id number] XR WRIST 3 VIEW BI INDICATION: FX - FRACTURE; FALL/HEAD INJURY EXAMINATION/TECHNIQUE: X-RAY - BILATERAL XR Wrists Bilateral Min 3 Views Ea - 69662 8 VIEWS COMPARISON: None. FINDINGS: No fractures or dislocations demonstrated. There are are mild osteoarthritic changes demonstrated . IMPRESSION: No acute osseous abnormalities at 1352 Reported and signed by: LEONARDA HEMPHILL MD CC: Dictated Date/Time: 02/01/2024 (7709)Technologist: ASHLIE MEDELLIN Transcribed Date/Time: 02/01/2024 (9615)Processing Spec: CRISTO Electronic Signature Date/Time: 02/01/2024 (3545)Orig Print D/T: S: 02/01/2024 (9084) PAGE 1 Signed Report Date:01-Feb-2024 Status:Completed Social History Smoking Status Tobacco smoking consumption unknown Recorded: Vital Signs 01-Feb-2024 12:22 TEMP DLOIWXELRV78.3f Comments:98 .3 Pulse76 Comments:76 Respiratory Rate17 Comments:17 O2 SAT96% Comments:96 BP Rvlxbhai625hw[Hg] Comments:14 5 BP Wnykxgesa86rl[Hg] Comments:79 Height5.5[ft_us] Comments:5 Snwcsh70.909kg Comments:90.909 01-Feb-2024 12:22 BMI32.3kg/m2 Comments:32.3 Encounters Emergency Encounter Reason:FALL/HEAD INJURY Encounter Diagnosis:Encounter for immunization,Fall on same level from slipping, tripping and stumbling with subsequent striking against unspecified object, initial encounter,Sidewalk as the place of occurrence of the external cause,Unspecified injury of face, initial encounter 01-Feb-2024 11:82Fo17-Cwb-6097 14:51 [facility] Discharge Disposition:Discharged to home or self care (routine discharge) Zak Gorman MD-01-Feb-2024 [facility] ([facility])EMERGENCY PROVIDER REPORTREPORT#:[id number] REPORT STATUS: SignedDATE:02/01/24 TIME: 1157PATIENT: BEVERLEY MAZARIEGOS UNIT #: [id number]#: [id number] ROOM/BED:AGE: 69 SEX: F PCP PHYS: Undefined ProviderSERVICE AUTHOR: Sherif Crespo MD* ALL edits or amendments must be made on the electronic/computer document *HPI-Trauma Minor/FallFree Text HPI NotesFree Text HPI Fperx84-nvgu-ekx female presents via EMS after ground level witnessed fall. Reportstripped on a crack in the sidewalk fell hitting her face, left knee and bothwrists. Reports takes Plavix, otherwise no anticoagulation. Denies elsewhereor other injury. Denies other symptoms or other acute complaints at this time.Reports tetanus up-to-date.GeneralConfirmed Patient YesInitial Greet Date/Time 02/01/24 1147PresentationChief Complaint FallHx Obtained From Patient, Family, EMSRisk-Trauma Minor/FallRisk StratificationNexus C-Spine CriteriaDistracting injury pres. No: Post midline tenderness, Intoxicated, Altered LOC/alertness, Focal neuro deficit pres.Jerome Coma Score: Copyright Sir Clinton López Copyright Sir Clinton López Eye opening: (4) Spontaneous Verbal response: (5) Oriented Best motor response: (6) Obeys commandsIntracranial Bleed Risk factors reviewedBleeding Risk factors reviewedSpine Injury Risk factors reviewedReview of SystemsROS StatementsAll systems rev neg except as marked.Free Text ROS NotesFree Text ROS NotesConstitutional:Denies Chills, FeverEyes:Denies Eye pain bilat, PhotophobiaEars/Nose/Throat:Denies Nasal congestion, Sore throatRespiratory:Denies Cough, non-productive, Cough, productive, Shortness of breathCardiovascular:Denies Chest pain, SyncopeGI:Denies Abdominal pain, Diarrhea, Nausea, VomitingGU:Denies Dysuria, Flank pain, Hematuria, Urinary frequency, Urinary urgencyMusculoskeletal:Reports extremity painDenies Back pain, Extremity swelling, Neck painSkin:Reports abrasion, lacerationDenies Itching, RashNeurologic:Reports headacheDenies Change LOC, Confusion, Focal weakness, Lightheaded, Numbness, Slurredspeech, Spinning sensation, Syncope, TinglingPast Medical History - AdultStated Complaint FALL/HEAD INJURYPhysical ExamVital SignsVital SignsFirst Documented: Result Date Time Pulse Ox 96 01/31 1222 B/P 145/79 01/31 1222 B/P Mean 101 01/31 1222 O2 Delivery Room air 01/31 1222 Temp 36.8 01/31 1222 Pulse 76 01/31 1222 Resp 17 01/31 1222Last Documented: Result Date Time Pulse Ox 96 01/31 1222 B/P 145/79 01/31 1222 B/P Mean 101 01/31 1222 O2 Delivery Room air 01/31 1222 Temp 36.8 01/31 1222 Pulse 76 01/31 1222 Resp 17 01/31 1222Review of Vital Signs ReviewedFocused PEEars/Nose/Throat Ears/Nose/Throat Airway patent, Pharynx NL, No pooling of secretions, Notrismus, Mastoid area NLFree Text PE NotesFree Text PE NotesGeneral/Const:Awake, Alert, No acute distressMS Head:NormocephalicSkin avulsion left of philtrum, not through and throughSuperior inner lip with subcentimeter laceration, not through and throughDeformity and edema nasal bridge, abrasionsNo malocclusionNo other intraoral lacerationEyes:PERRL, EOMIMS Neck:Supple, No meningismus, Full range of motion, No adenopathy, No swelling, Non-tender, No midline vertebral tendResp/Chest:Breath sounds NL, Breath sounds = bilat, No respiratory distressCardiovascular:Heart rate NL, Regular rhythm, Heart sounds NL, Cap refill not delayed,Peripheral circulation NL, Pulses = bilaterallyAbdomen/GI:Soft, Non- tender, McBurney's non-tender, No guarding, No rebound, BS normoactive, No distention, No palpable mass, No pulsatile massMS Back:Full range of motion, Painless range of motion, Non-tender, No midline vertebraltend, No paraspinal tenderness, No CVA tendernessMS Upper Extrem:Bilateral wrist tendernessNo snuffbox tendernessNo swelling, No erythema, No deformity, Neurologic intact, Vascular intact,Compartments softMS Lower Extrem:Left knee tenderNo swelling, No erythema, No deformity, Neurologic intact, Vascular intact,Compartments softSkin:Warm, DryNeurologic:Oriented X3, Speech NL, No motor deficits, CN II - XII intact, Cerebellar NLInterpretation DiagnosticsLab Results InterpretationResultsRecent Impressions:RADIOLOGY - XR WRIST 3 VIEW BI 01/31 1310 Report Impression - Status: SIGNED Entered: 02/01/2024 1353IMPRESSION:No acute osseous abnormalitiesImpression By: BERNIE HEMPHILL, MARTHAADIOLOGY - XR KNEE 4+ VIEWS LEFT 01/31 1310 Report Impression - Status: SIGNED Entered: 02/01/2024 1355IMPRESSION:No evidence of a joint effusionSevere medial compartment osteoarthritis with less markedpatellofemoral space osteoarthritisImpression By: BERNIE HEMPHILL, MDCOMPUTERIZED TOMOGRAPHY - CT MAXFACE W/O CONTRAST 01/31 1340 Report Impression - Status: SIGNED Entered: 02/01/2024 1408IMPRESSION:No fracture identifiedMarked soft tissue swelling anterior to the maxilla.There is a cavity in the right frontal tooth within the maxillamediallyImpression By: BERNIE HEMPHILL, MDCOMPUTERIZED TOMOGRAPHY - CT C-SPINE W/O IV CONTRAST 01/31 1340 Report Impression - Status: SIGNED Entered: 02/01/2024 1410IMPRESSION:No evidence of acute cervical spinal fracture or spondylolisthesis.Impression By: BERNIE HEMPHILL, MDCOMPUTERIZED TOMOGRAPHY - CT HD/BRAIN W/O CONT 01/31 1340 Report Impression - Status: SIGNED Entered: 02/01/2024 1402IMPRESSION:Negative studyImpression By: BERNIE HEMPHILL, MDRe-Evaluation MDMRe-Evaluation/Progress #1Text/Dict NoteEvaluation with facial skin avulsion, intraoral lip laceration. Patient isadamant she does not want attempt at repair, which is reasonable. Understandshow to aid healing by secondary intention. Family at bedside in agreement. Noevidence septal hematoma. No acute bony abnormality per Radiology read. Nasalsoft tissue swelling and nasal airway narrowing expected. No imminent airwayrisk. Low suspicion clinically significant acute head injury, acute bonyabnormality or other emergent condition at this time. Appropriate for dischargeat this time. Comfortable going home and following up on outpatient basis.Counseled on pertinent results, and any incidental findings, as well asimpression and plan. Understands the possibility of diagnostic uncertainty.Discussed strict return precautions, follow-up, and supportive care. Allquestions answered. Expresses understanding and agreement. Discussed also withfamily.[X] Patient is 18 or older, presenting with minor blunt head trauma.Reasons:[X] Patient is 65 or olderED CourseMedication(s) OrderedMedication(s) Ordered:Central Nervous System Agents Sig/Dong Start time Last Medication Dose Route Stop Time Status Admin Hydrocodone Bitart/ 1 TAB X1ED ONE 01/31 1323 DC 01/31 Acetaminophen PO 01/31 1324 1342Serums, Toxoids, And Vaccines Sig/Dong Start time Last Medication Dose Route Stop Time Status Admin Diphtheria/Pertussis/ 0.5 ML X1ED ONE 01/31 1156 CAN Tetanus Vacc IM 01/31 1157Patient Discharge DepartureVital Signs/ConditionVital SignsFirst Documented: Result Date Time Pulse Ox 96 01/31 1222 B/P 145/79 01/31 1222 B/P Mean 101 01/31 1222 O2 Delivery Room air 01/31 1222 Temp 36.8 01/31 1222 Pulse 76 01/31 1222 Resp 17 01/31 1222Last Documented: Result Date Time Pulse Ox 96 01/31 1222 B/P 145/79 01/31 1222 B/P Mean 101 01/31 1222 O2 Delivery Room air 01/31 1222 Temp 36.8 01/31 1222 Pulse 76 01/31 1222 Resp 17 01/31 1222All vital signs available at the time of this entry have been reviewed.Clinical ImpressionClinical ImpressionPrimary Impression: FallSecondary Impressions: Facial injuryDisposition DecisionDischarge )( Discharged to Home Yes )( Time 1426 )( Date 02/01/24Discharge/Care PlanCounseled Regarding Imaging studies, Prescriptions, Need for follow-up, When toreturn to ED(Auto) PrescriptionsCurrent Visit ScriptsChlorhexidine Gluconate (Peridex) 15 ML MM BID Chlorhexidine Gluconate (Peridex) 15 ML MM BID #200 MLPrescriptions Reviewed Risks, Benefits, Alternative treatmentPatient Instructions Deep Skin Avulsion, Facial Laceration, Kjwt-gb-Qgmz, HeadInjury, Adult, Nonsutured Laceration Care, Understanding Your Risk for FallsAdditional InstructionsPlease follow up with your primary care provider as soon as possible.Return to the Emergency Department if worsening or other concerns. Discharge NoteI have spoken with the patient and/or caregivers. I have explained the patient'scondition, diagnoses and treatment plan based on the information available to meat this time. I have answered the patient's and/or caregiver's questions andaddressed any concerns. The patient and/or caregivers have as good anunderstanding of the patient's diagnosis, condition and treatment plan as can beexpected at this point. The vital signs have been stable. The patient'scondition is stable and appropriate for discharge from the emergency department.The patient will pursue further outpatient evaluation with the primary carephysician or other designated or consulting physician as outlined in thedischarge instructions. The patient and/or caregivers are agreeable to this planof care and follow-up instructions have been explained in detail. The patientand/or caregivers have received these instructions in written format and haveexpressed an understanding of the discharge instructions. The patient and/orcaregivers are aware that any significant change in condition or worsening ofsymptoms should prompt an immediate return to this or the closest emergencydepartment or a call to 911.Quality MeasuresPt Treated for EMC? Yes at 1929RPT #: [id number] OF REPORT Plan of Treatment Please follow up with your primary care provider as soon as possible. Return to the Emergency Department if worsening or other concerns. Future Tests Future scheduled test information is unavailable Pending Tests Pending diagnostic test information is unavailable Future Visits Future appointment information is unavailable Referrals to Other Providers Reason for Referral Referral Start Date Provider Provider Contact Information Provider Address Undefined Provider Future Procedures Future procedure information is unavailable Future Medications Future medication information is unavailable Patient Instructions Head Injury, Adult Understanding Your Risk for Falls Deep Skin Avulsion Nonsutured Laceration Care Facial Laceration, Easy-to-R ead Assessments Diagnosis Onset Date Resolution Status Fall Active Facial injury Active
[2024-09-26 07:26] LABS: Hematocrit 35.4 % (37.0-47.0); Hemoglobin 11.8 g/dL (12.0-15.0); Mean Corpuscular HGB Conc 33.3 g/dl (32-36); Mean Corpuscular Hemoglobin 29.8 pg (26-34); Mean Corpuscular Volume 89.4 fl (80-100); Platelet Count Result 407 k/mm3 (150-375); Red Blood Count 3.96 M/mm3 (4.2-5.4); Red Cell Distribution Width 14.5 % (11.5-14.5); White Blood Count 28.1 K/mm3 (4.5-10.0)
[2024-09-26 07:43] LABS: Albumin Level 3.5 g/dL (3.5-5.1); Alkaline Phosphatase 223 U/L (38-126); Anion Gap 11 mmol/L (4-12); Aspartate Amino Transferase 188 U/L (14-36); Bilirubin,Total 1.3 mg/dL (0.2-1.3); Blood Urea Nitrogen 29 mg/dL (7-17); Calcium 8.9 mg/dL (8.4-10.2); Carbon Dioxide 30 mmol/L (22-30); Chloride 98 mmol/L (98-107); Estimated CRCL calculation 41 ml/min; Estimated Glomerular Filt Rate 44; Glucose 164 mg/dL (65-110); Potassium 3.8 mmol/L (3.4-5.0); Sodium 139 mmol/L (137-145)
--- OUTSIDE RECORDS SUMMARY | 2024-09-26 07:43 | XMS_ITS | Referral Summary ---
Author Organization [facility] Address [address] [place] [phone] Care Team Providers Care Hotel Assistant Manager Name Role Phone Jorge Sweeney MD Primary Care Prov ider Encounters Date Type Department Care Team Description 09/18/2024 1:34 PM GOVERNOR ASSEMBLER HYDRAULIC - 09/18/2024 11:59 PM GOVERNOR ASSEMBLER HYDRAULIC Hospital Encounter [facility] Imaging and Radiology [address] [place] [phone] Screening mammogram, encounter for Discharge Disposition: Discharge to home or self care 09/18/2024 11:00 AM GOVERNOR ASSEMBLER HYDRAULIC - 09/18/2024 11:59 PM [facility] Hospital Encounter [facility] Vascular Lab [address] [place] [id number] Other specified disorders of bone density and structure, unspecified site; Bilateral carotid artery stenosis Discharge Disposition: Discharge to home or self care 09/18/2024 1:30 PM GOVERNOR ASSEMBLER HYDRAULIC - 09/18/2024 11:59 PM [facility] Hospital Encounter [facility] Imaging and Radiiology [address] [place] [phone] Other specified disorders of bone density [...] (06/28/2020): Added automatically from request for surgery [id number] Social History Tobacco Use Types Packs/Day Years [...] on file Legal Sex Female 3:23 AM GOVERNOR ASSEMBLER HYDRAULIC Gender Identity Not on file Sexual Orientation Not on file Last Filed Vital Signs Vital Sign Reading Time Taken Comments Blood Pressure 130/72 07/24/2020 12:25 PM GOVERNOR ASSEMBLER HYDRAULIC Pulse 88 07/24/2020 1:00 PM GOVERNOR ASSEMBLER HYDRAULIC Temperature 36.7 C (98 F) 07/24/2020 4:00 AM GOVERNOR ASSEMBLER HYDRAULIC Respiratory Rate 16 07/24/2020 1:00 PM GOVERNOR ASSEMBLER HYDRAULIC Oxygen Saturation 98% 07/24/2020 1:00 PM GOVERNOR ASSEMBLER HYDRAULIC Inhaled Oxygen Concentration - - Weight 91.6 kg (202 lb) 07/23/2020 11:53 AM GOVERNOR ASSEMBLER HYDRAULIC Height 167.6 cm (5' 6 ) 07/23/2020 11:53 AM GOVERNOR ASSEMBLER HYDRAULIC Body Mass Index 32.6 07/23/2020 11:53 AM GOVERNOR ASSEMBLER HYDRAULIC Plan of Treatment Not on file Procedures Procedure Name Priority Date/Time Associated Diagnosis Comments DEXA AXIAL SKELETON BONE DENSITY 1 OR MORE SITES Schedule Routine, Read Routine (OP Routine) 09/18/2024 2:17 PM GOVERNOR ASSEMBLER HYDRAULIC Other specified disorders of bone density and structure, unspecified site SCREENING MAMMOGRAM BILATERAL W CHARAN Schedule Routine, Read Routine (OP Routine) 09/18/2024 1:56 PM GOVERNOR ASSEMBLER HYDRAULIC Screening mammogram, encounter for US CAROTIDS DUPLEX BILATERAL Schedule Routine, Read Routine (OP Routine) 09/18/2024 11:36 AM GOVERNOR ASSEMBLER HYDRAULIC Bilateral carotid artery stenosis from Last 3 Months Results * Dexa Axial Skeleton Bone Density 1 or 2 Site (09/18/2024 2:17 PM GOVERNOR ASSEMBLER HYDRAULIC) Anatomical Region Laterality Modality Body N/A Other 09/19/2024 8:29 AM GOVERNOR ASSEMBLER HYDRAULIC Impressions 09/19/2024 8:29 AM GOVERNOR ASSEMBLER HYDRAULIC Osteopenia. Consider follow-up bone densitometry evaluation in 2-3 years. Electronically signed by: Geraldo Martin M.D. Narrative 09/19/2024 8:29 AM GOVERNOR ASSEMBLER HYDRAULIC EXAMINATION: DEXA AXIAL SKELETON BONE DENSITY 1 OR MORE SITES DATE: 09/18/2024 1:30 PM HISTORY: 69 [id number] postmenopausal woman; other specified disorders of bone [...] SITES DATE: 09/18/2024 1:30 PM HISTORY: 69 [id number] postmenopausal woman; other specified disorders of bone [...] Mammogram Bilateral W Charan (09/18/2024 1:56 PM GOVERNOR ASSEMBLER HYDRAULIC) Anatomical Region Laterality Modality Breast Bilateral Mammography 09/18/2024 2:41 PM GOVERNOR ASSEMBLER HYDRAULIC Impressions 09/18/2024 2:41 PM GOVERNOR ASSEMBLER HYDRAULIC No evidence of malignancy in either breast. FINAL ASSESSMENT: BI-RADS Category 1: Negative. RECOMMENDATION: Recommend return for annual screening mammogram in 12 months. Electronically signed by: KRISTA CRAWFORD MD Narrative 09/18/2024 2:41 PM GOVERNOR ASSEMBLER HYDRAULIC EXAMINATION: BILATERAL SCREENING MAMMOGRAM COMPARISON: All prior [...] US Carotids Duplex Bilateral (09/18/2024 11:36 AM GOVERNOR ASSEMBLER HYDRAULIC) Anatomical Region Laterality Modality Vascular Bilateral Ultrasound 09/18/2024 1:04 PM GOVERNOR ASSEMBLER HYDRAULIC Impressions 09/18/2024 1:04 PM GOVERNOR ASSEMBLER HYDRAULIC No sonographic evidence of hemodynamically significant narrowing [...] Geraldo Martin M.D. Narrative 09/18/2024 1:04 PM GOVERNOR ASSEMBLER HYDRAULIC EXAMINATION: US CAROTIDS DUPLEX BILATERAL DATE: 09/18/2024 [...] Last 3 Months Insurance MEDICARE [employer] [place] [address] [employer] MEDICARE PPO Advance Directives For more information, please contact: [phone] * Full Code (Latest Code Status on File) Date Activated Date Inactivated Comments 07/23/2020 5:38 PM 07/24/2020 9:05 PM Care Teams Hotel Assistant Manager Relationship Specialty Start Date End Date Jorge Sweeney MD [address] [place] [address] PCP - General 12/02/20
--- OUTSIDE RECORDS SUMMARY | 2024-09-26 07:43 | XMS_ITS | Clinical Summary ---
Author Organization [facility] Address [address] [facility] [address] [phone] Phone Care Team Providers Care Classroom Instructional Aide Name Role Phone Jorge Sweeney MD Primary Care Provider +1- [phone] Allergies Active Allergy Reactions Criticality Noted Date [...] on file Legal Sex Female 10:54 AM ADMITTED ATTORNEYS Gender Identity Not on file Sexual Orientation Not on file Last Filed Vital Signs Vital Sign Reading Time Taken Comments Blood Pressure 122/62 10/18/2023 3:09 PM ADMITTED ATTORNEYS Pulse 73 10/18/2023 3:09 PM ADMITTED ATTORNEYS Temperature - - Respiratory Rate - - Oxygen Saturation 96% 09/13/2023 8:47 AM ADMITTED ATTORNEYS Inhaled Oxygen Concentration - - Weight 93 kg (205 lb) 10/18/2023 3:09 PM ADMITTED ATTORNEYS Height 167.6 cm (5' 6 ) 10/18/2023 3:09 PM ADMITTED ATTORNEYS Body Mass Index 33.09 10/18/2023 3:09 PM ADMITTED ATTORNEYS Plan of Treatment Upcoming Encounters Date Type Department Care Team (Late st Contact Info) Description 10/22/2024 2:00 PM CDT Office Visit [facility] Heart and Vascular - [address] [facility] [address] [address] [facility] [address] [place] [address] Shari Lares FNP [address] [facility] [address] [place] [address] Health Maintenance Due Date Last [...] Screening 03/05/2034 OSTEOPOROSIS SCREENING Completed 08/02/[address] [facility] MEDICARE PART A AND B Care Teams Classroom Instructional Aide Relationship Specialty Start Date End Date Jorge Sweeney MD [address] [place] [phone] PCP - General Family Practice 10/10/23
--- OUTSIDE RECORDS SUMMARY | 2024-09-26 07:44 | XMS_ITS | Patient Health Summary ---
Author Organization [facility] Address [address] [place] [address] Care Team Providers Care Clipping Marker Name Role Phone Jorge Sweeney MD Primary Care Provider + Note from [facility],non-owned Affiliates and Associated Physician Practices is amultiple site organization consisting of ambulatory clinics and hospital sitesin [place], [place], [place] and [place]. This disclosure is being madepursuant to the Care Everywhere program and may not contain all information available regarding this patient. Last updated 18.[facility] Allergies * Aspirin(Rash) -Low Criticality * [...] by mouth once daily * Probiotic Product (uFaber PO) Take by mouth once daily * [...] MD on 06/11/2024 4:14 PM Tracie Ponce GRIND OPERATOR-MEDICAL COLLECTOR DIAGNOSTIC IMAG ING ORDERABLES * (ABNORMAL) CBC [...] 7:54 PM CDT Narrative Resulting Agency Comment [facility] [address] [place] [id number] Kanu Bustos MD LAB - HEMATOLOGY ORD [...] 7:54 PM CDT Narrative Resulting Agency Comment [facility] [address] [place] [id number] Kanu Bustos MD LAB - CHEMISTRY CA [facility] Organization Address City/State/ZIP Co de [...] see injection note Kanu Bustos MD Office [phone] Call Directly [phone] Kanu Bustos MD US ORDERABLES * CYCLIC CITRUL PEPTIDE ANTIBODY IGG/IGA (CCP) (04/12/2015 4:19 PM CDT) CCP Antibodies IgG/IgA 2 0 - 19 units [facility] ACCOUNT BILL Comment: Negative <20 Weak positive 20 - 39 Moderate positive 40 - 59 Strong positive >59 BLOOD SPECIMEN / Unknown 04/12/2015 4:19 PM CDT 04/12/2015 7:41 PM CDT Narrative Resulting Agency Comment [facility] [address] [id number] Kanu Bustos MD LAB - SEROLOGY ORDER SONIA [facility] ACCOUNT BILL * W REFLX (POSITIVE) (PO REF LAB) (04/12/2015 4:19 PM CDT) Direct Negative Negative [facility] ACCOUNT BILL Blood specimen (specimen) BLOOD SPECIMEN / Unknown 04/12/2015 4:19 PM CDT 04/12/2015 7:41 PM CDT Narrative Resulting Agency Comment [facility] [address] [id number] Kanu Bustos MD LAB - SEROLOGY ORDER SONIA [facility] ACCOUNT BILL * (ABNORMAL) C-REACTIVE PROTEIN (04/12/2015 4:19 PM CDT) C-Reactive Protein 0.37(H) <0.30 mg/dL [facility] ACCOUNT BILL Blood specimen (specimen) BLOOD SPECIMEN / Unknown 04/12/2015 4:19 PM CDT 04/12/2015 7:41 PM CDT Narrative Resulting Agency Comment [facility] [address] [place] [id number] Kanu Bustos MD LAB - CHEMISTRY CA RESENDIZ [facility] ACCOUNT BILL * SED RATE WESTERGREN (04/12/2015 4:19 PM CDT) Erythrocyte Sedimentation Rate Westergren 23 0 - 30 mm/hr [facility] ACCOUNT BILL Blood specimen (specimen) BLOOD SPECIMEN / Unknown 04/12/2015 4:19 PM CDT 04/12/2015 7:41 PM CDT Narrative Resulting Agency Comment [facility] [address] [place] [id number] Kanu Bustos MD LAB - HEMATOLOGY ORD ERABLES [facility] ACCOUNT BILL Care Teams Clipping Marker Relationship Specialty Start Date End Date Jorge Sweeney MD [address] [address] PCP - General Family Medicine 03/01/15
--- OUTSIDE RECORDS SUMMARY | 2024-09-26 07:44 | XMS_ITS | Referral Summary ---
Author Organization [facility] Address [address] [place] [address] Care Team Providers Care Bearingizer Name Role Phone Jorge Sweeney MD Primary Care Provider + Source Comments [facility],non-owned Affiliates and Associated Physician Practices is amultiple site organization consisting of ambulatory clinics and hospital sitesin [place], [place], [place] and [place]. This disclosure is being madepursuant to the Care Everywhere program and may not contain all information available regarding this patient. Last updated 18.[facility] Allergies Active Allergy Reactions Criticality Noted Date [...] by mouth once daily Active Probiotic Product ([employer] HEALTH PO) Take by mouth once daily [...] Not on file Administered Medications Care Teams Bearingizer Relationship Specialty Start Date End Date Jorge Sweeney MD [address] [facility] [address] [place] [address] PCP - General Family Medicine 03/01/15
--- OUTSIDE RECORDS SUMMARY | 2024-09-26 07:44 | XMS_ITS | Clinical Summary ---
Author Organization [facility] Address [address] [place] [address] Care Team Providers Care Junior Staff Accountant Name Role Phone Jorge Sweeney MD Primary Care Provider + Source Comments [facility],non-owned Affiliates and Associated Physician Practices is amultiple site organization consisting of ambulatory clinics and hospital sitesin [place], [place], [place] and [place]. This disclosure is being madepursuant to the Care Everywhere program and may not contain all information available regarding this patient. Last updated 18.[facility] Allergies Active Allergy Reactions Criticality Noted Date [...] by mouth once daily Active Probiotic Product ([employer] HEALTH PO) Take by mouth once daily [...] age to complete this topic Care Teams Junior Staff Accountant Relationship Specialty Start Date End Date Jorge Sweeney MD [address] [facility] [address] [place] [address] PCP - General Family Medicine 03/01/15
--- OUTSIDE RECORDS SUMMARY | 2024-09-26 07:44 | XMS_ITS | Clinical Summary ---
Author Organization [facility] Address [address] [place] [address] Care Team Providers Care Steam Plant Records Clerk Name Role Phone Jorge Sweeney MD Primary [...] (06/28/2020): Added automatically from request for surgery [id number] Encounters Date Type Department Care Team Description 09/18/2024 1:34 PM MANAGER LOCAL - 09/18/2024 11:59 PM [facility] Hospital Encounter [facility] Imaging and Radiology [address] [place] [phone] Screening mammogram, encounter for Discharge Disposition: Discharge to home or self care 09/18/2024 1:30 PM MANAGER LOCAL - 09/18/2024 11:59 PM [facility] Hospital Encounter [facility] Imaging and Radiiology [address] [place] [phone] Other specified disorders of bone density and structure, unspecified site Discharge Disposition: Discharge to home or self care 09/18/2024 11:00 AM MANAGER LOCAL - 09/18/2024 11:59 PM [facility] Hospital Encounter [facility] Vascular Lab [address] [place] [address] Other specified disorders of bone density and [...] on file Legal Sex Female 3:23 AM MANAGER LOCAL Gender Identity Not on file Sexual Orientation [...] Comments Blood Pressure 130/72 07/24/2020 12:25 PM MANAGER LOCAL Pulse 88 07/24/2020 1:00 PM MANAGER LOCAL Temperature 36.7 C (98 F) 07/24/2020 4:00 AM MANAGER LOCAL Respiratory Rate 16 07/24/2020 1:00 PM MANAGER LOCAL Oxygen Saturation 98% 07/24/2020 1:00 PM MANAGER LOCAL Inhaled Oxygen Concentration - - Weight 91.6 kg (202 lb) 07/23/2020 11:53 AM MANAGER LOCAL Height 167.6 cm (5' 6 ) 07/23/2020 11:53 AM MANAGER LOCAL Body Mass Index 32.6 07/23/2020 11:53 AM MANAGER LOCAL Plan of Treatment Health Maintenance Due Date [...] Read Routine (OP Routine) 09/18/2024 2:17 PM MANAGER LOCAL Other specified disorders of bone density and structure, unspecified site SCREENING MAMMOGRAM BILATERAL W CHARAN Schedule Routine, Read Routine (OP Routine) 09/18/2024 1:56 PM MANAGER LOCAL Screening mammogram, encounter for US CAROTIDS DUPLEX BILATERAL Schedule Routine, Read Routine (OP Routine) 09/18/2024 11:36 AM MANAGER LOCAL Bilateral carotid artery stenosis from Last 3 Months Results * Dexa Axial Skeleton Bone Density 1 or 2 Site (09/18/2024 2:17 PM MANAGER LOCAL) Anatomical Region Laterality Modality Body N/A Other 09/19/2024 8:29 AM MANAGER LOCAL Impressions 09/19/2024 8:29 AM MANAGER LOCAL Osteopenia. Consider follow-up bone densitometry evaluation in 2-3 years. Electronically signed by: Geraldo Martin M.D. Narrative 09/19/2024 8:29 AM MANAGER LOCAL EXAMINATION: DEXA AXIAL SKELETON BONE DENSITY 1 OR MORE SITES DATE: 09/18/2024 1:30 PM HISTORY: 69 [id number] postmenopausal woman; other specified disorders of bone [...] SITES DATE: 09/18/2024 1:30 PM HISTORY: 69 [id number] postmenopausal woman; other specified disorders of bone [...] Mammogram Bilateral W Charan (09/18/2024 1:56 PM MANAGER LOCAL) Anatomical Region Laterality Modality Breast Bilateral Mammography 09/18/2024 2:41 PM MANAGER LOCAL Impressions 09/18/2024 2:41 PM MANAGER LOCAL No evidence of malignancy in either breast. FINAL ASSESSMENT: BI-RADS Category 1: Negative. RECOMMENDATION: Recommend return for annual screening mammogram in 12 months. Electronically signed by: MD Taryn JOHNS 09/18/2024 2:41 PM MANAGER LOCAL EXAMINATION: BILATERAL SCREENING MAMMOGRAM COMPARISON: All prior [...] US Carotids Duplex Bilateral (09/18/2024 11:36 AM MANAGER LOCAL) Anatomical Region Laterality Modality Vascular Bilateral Ultrasound 09/18/2024 1:04 PM MANAGER LOCAL Impressions 09/18/2024 1:04 PM MANAGER LOCAL No sonographic evidence of hemodynamically significant narrowing [...] Geraldo Martin M.D. Narrative 09/18/2024 1:04 PM MANAGER LOCAL EXAMINATION: US CAROTIDS DUPLEX BILATERAL DATE: 09/18/2024 [...] Geraldo Martin M.D. us Lucrecia Jenkins NP [facility] PROCEDURES Final Result from Last 3 Months Insurance MEDICARE [facility] Address[facility] [address] [place] [address] [facility] MEDICARE [employer] [place] [employer] [place] [employer] MEDIC[employer] PPO Advance Directives For more information, please contact: [phone] * Full Code (Latest Code Status on File) Date Activated Date Inactivated Comments 07/23/2020 5:38 PM 07/24/2020 9:05 PM Care Teams Steam Plant Records Clerk Relationship Specialty Start Date End Date Jorge Sweeney MD [address] [place] [address] PCP - General 12/02/20
[2024-09-26] MEDS: ONDANSETRON INJ 4 MG/2 ML VIAL IV PUSH (07:51)
[2024-09-26] MEDS: SODIUM CHLORIDE 0.9% IV 1,000 ML 999 ML IV CONT (07:52)
[2024-09-26 08:02] LABS: Alanine Aminotransferase 143 U/L (6-35)
[2024-09-26 08:06] LABS: Band Neutrophils Percent 10 % (0-6); Monocytes Absolute Manual 0.28 K/mm3 (0.1-0.90); Monocytes Percent Manual 1 % (3-9); Neutrophils Absolute Manual 27.81 K/mm3 (1.7-7.2); Neutrophils Percent Manual 89 % (46-73); Platelet Estimate Increased (Adequate); Schistocytes None Seen; Total Cells Counted 100
[2024-09-26 08:07] LABS: Lactic Acid Reflex 1.9 mmol/L (0.7-2.0)
[2024-09-26 08:13] LABS: Add Urine Microscopic? YES; Appearance Urine Cloudy (Clear); Bacteria Urine None Seen /hpf; Bilirubin Urine 2+ (Negative); Blood Urine Negative (Negative); Color Urine Dark Yellow (Yellow); Glucose Urine UA Negative (Negative); Granular Casts Urine Present /lpf; Hyaline Casts Urine Present /lpf; Ketones Urine Trace mg/dL (Negative); Leukocyte Esterase Ur Trace LEU/UL (Negative); Mucus Urine Present /lpf; Need Manual Microscopic Reviewed; Nitrate Urine Negative (Negative); Protein Urine 2+ mg/dL (Negative); RBC Urine 0-2 /hpf (0-2); Squamous Epithelial Cell Urine Many /hpf (Few)
[2024-09-26 08:15] LABS: Lipase 6763 U/L (23-300)
[2024-09-26] MEDS: LACTATED RINGERS 1,000 ML 200 ML IV CONT (09:54)
--- NOTE | 2024-09-26 10:33 | ED.ABDPAIN ---
HPI - Abdominal Pain General Chief Complaint: Abdominal Pain Stated Complaint: bilateral abd that wraps around back Time Seen by Provider: 09/26/24 07:04 Source: patient Mode of arrival: ambulatory Limitations: no limitations History of Present Illness HPI narrative: 69-year-old with a history of depression and status post carotid endarterectomy here with a complaint of 2 week history of abdominal pain, nausea, unable to keep any fluids down. Patient states that she saw her primary doctor few days ago for the same. However since this morning she states that pain is mostly in the flank area and she is concerned about possible urinary tract infection. She denies any fever or chills. She states she gets more pain soon after she eats or drinks. No previous history of peptic ulcer disease. Denies any urinary symptoms. MD elicited complaint: abdominal pain and flank pain Pertinent past history: none Onset (ago): week(s) (2) Pain Consistency: constant Location: R flank Severity: moderate Quality: aching Exacerbating factors: eating Relieving factors: nothing Associated symptoms: nausea and vomiting Related Data Home Medications ?Medication ?Instructions ?Recorded ?Confirmed ?Last Taken ?Type gabapentin 300 mg (9)-600 mg (24) 2 ea PO .hs 07/13/22 09/22/24 Unknown History tablet, ER 24 hr dose pack tizanidine 2 mg capsule 2 mg PO QHS 07/13/22 09/22/24 Unknown History diclofenac sodium 75 mg 75 mg PO BID 02/06/24 09/22/24 Unknown History tablet,delayed release pantoprazole 40 mg tablet,delayed 40 mg PO QAM 02/06/24 09/22/24 Unknown History release bupropion HCl 150 mg 24 hr tablet, 150 mg PO DAILY 02/22/24 09/22/24 Unknown History extended release clopidogrel 75 mg tablet 75 mg PO DAILY 02/22/24 09/22/24 02/28/24 History hfbdlgrq-[id number]-atts 18 mg-FA 400 1 tablet PO DAILY 02/22/24 09/22/24 Unknown History mcg-calcium 500 mg-vit K 50 mcg tablet (Women's Multivitamin) acetaminophen 325 mg tablet 650 mg PO Q6H PRN Pain 03/05/24 09/22/24 03/05/24 05:00 History azathioprine 50 mg tablet 50 mg PO BID 08/11/24 09/22/24 Unknown History Allergies Allergy/AdvReac Type Severity Reaction Status Date / Time No Known Allergies Allergy Verified 09/22/24 11:15 Review of Systems Review of Systems: All systems reviewed & are unremarkable except as noted in HPI and below Constitutional: Constitutional: Reports no additional constitutional complaints Eyes: Eyes: Reports no additional eye complaints ENT: Reports system reviewed and no additional complaints, except as documented Cardiovascular: Cardiovascular: Reports no additional cardiovascular complaints Respiratory: Respiratory: Reports no additional respiratory complaints Gastrointestinal: Gastrointestinal: Reports as per HPI Genitourinary: Genitourinary: Reports no additional female genitourinary complaints Musculoskeletal: Musculoskeletal: Reports no additional musculoskeletal complaints Neurologic: Reports system reviewed and no additional complaints, except as documented Psychiatric: Psychiatric: Reports no additional psychiatric complaints [facility], [facility] Surgical History Surgical History History of left-sided carotid endarterectomy (~07/2021) Family History Family History Sibling Schizophrenia Sibling Acute myocardial infarction Other Diabetes mellitus Social History Social History Smoking packs per day: 0.5 Smoking cigarettes per day: 10.0 Years smoked: 50 Smoking pack-years: 25.00 Smoking status: Former smoker Tobacco type: cigarettes Additional smoking assessment comments: 1/2 ppd Alcohol intake: current Alcohol use details: occasional Substance use: never Substance use type: does not use Living arrangements: with family 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 HEAD: Normocephalic, atraumatic. EYES: PERRLA and EOMI.. NECK: Supple. CHEST: Clear to auscultation. No respiratory distress. HEART: Regular rate and rhythm. No murmur heard. Normal peripheral pulses. ABDOMEN: Soft, nontender, nondistended, normal active bowel sounds. EXTREMITIES: Normal range of motion. No edema. SKIN: Warm, dry, no rash. NEURO: No focal deficits. Alert and oriented x3. PSYCH: Normal mood and affect. Course Course Emergency Course: Informed patient and family about her lab work, CT findings. Discussed with the hospitalist recommend GI consult I did talk discussed with Dr. Vargas recommended LR at 200 mL an hour. and ultrasound of the gallbladder the liver enzymes are elevated. pt is comfortable updated lab and US findings. agreed with admission Vital Signs Vital signs: Vital Signs Pulse Rate 93 09/26/24 05:44 Respiratory Rate 16 09/26/24 05:44 Pulse Oximetry 96 09/26/24 05:44 Pulse Rate 85 09/26/24 09:00 Respiratory Rate 14 09/26/24 09:00 Blood Pressure 88/52 L 09/26/24 09:00 Pulse Oximetry 98 09/26/24 09:00 MDM - Abdominal Pain Differential Diagnosis Differential diagnosis: Likely abdominal pain, constipation, gastroenteritis, pancreatitis and small bowel obstruction Medical Records Attestation: I reviewed the patient's medical records. Lab Data Attestation: I reviewed the patient's lab results. 09/26/24 07:18 09/26/24 07:18 Labs: Lab Results 09/26/24 09/26/24 Range/Units 07:18 07:52 WBC 28.1 H (4.5-10.0) K/mm3 RBC 3.96 L (4.2-5.4) M/mm3 Hgb 11.8 L (12.0-15.0) g/dL Hct 35.4 L (37.0-47.0) % MCV 89.4 (80-100) fl MCH 29.8 (26-34) pg MCHC 33.3 (32-36) g/dl RDW 14.5 (11.5-14.5) % Plt Count 407 H (150-375) k/mm3 MPV 10.0 (7.4-10.4) fl Immature Gran % (Auto) Not Reportable Neut % (Auto) Not Reportable Lymph % (Auto) Not Reportable [place] % (Auto) Not Reportable Eos % (Auto) Not Reportable Baso % (Auto) Not Reportable Lymph # (Auto) Not Reportable [place] # (Auto) Not Reportable Eos # (Auto) Not Reportable Baso # (Auto) Not Reportable Abs Immat Gran (auto) Not Reportable Absolute Neuts (auto) Not Reportable Absolute Nucleated RBC Not Reportable Total Counted 100 Neutrophils % (Manual) 89 H (46-73) % Band Neutrophils % 10 H (0-6) % Monocytes % (Manual) 1 L (3-9) % Nucleated RBC % Not Reportable Abs Neuts (Manual) 27.81 H (1.7-7.2) K/mm3 Abs Monocytes (Manual) 0.28 (0.1-0.90) K/mm3 Platelet Estimate Increased (Adequate) Schistocytes None seen Sodium 139 (137-145) mmol/L Potassium 3.8 (3.4-5.0) mmol/L Chloride 98 (98-107) mmol/L Carbon Dioxide 30 (22-30) mmol/L Anion Gap 11 (4-12) mmol/L BUN 29 H (7-17) mg/dL Creatinine 1.21 H (0.7-1.0) mg/dL Estim Creat Clear Calc 41 ml/min Estimated GFR 44 L (59 - ) Glucose 164 H (65-110) mg/dL Lactic Acid 1.9 (0.7-2.0) mmol/L Calcium 8.9 (8.4-10.2) mg/dL Total Bilirubin 1.3 (0.2-1.3) mg/dL AST 188 H (14-36) U/L ALT 143 H (6-35) U/L Alkaline Phosphatase 223 H (38-126) U/L Total Protein 7.0 (6.3-8.2) g/dL Albumin 3.5 (3.5-5.1) g/dL Lipase 6763 H (23-300) U/L Urine Color Dark yellow (Yellow) Urine Appearance Cloudy H (Clear) Urine pH 5.0 (5.0-9.0) Ur Specific [place] 1.030 (1.001-1.035) Urine Protein 2+ H (Negative) mg/dL Urine Glucose (UA) Negative (Negative) mg/dL Urine Ketones Trace H (Negative) mg/dL Ur Blood (Man) Negative (Negative) Urine Nitrate Negative (Negative) Urine Bilirubin 2+ H (Negative) Urine Urobilinogen 2.0 H (<2.0) mg/dL Add Ur Microanalysis Reviewed Leukocyte Esterase Rfl Trace H (Negative) ERICH/UL Urine RBC 0-2 (0-2) /hpf Urine WBC 11-20 H (0-3) /hpf Ur Squamous Epith Cells Many H (Few) /hpf Urine Bacteria None seen /hpf Urine Casts 11-20 Hyaline Casts Present (None) /lpf Granular Casts Present (None) /lpf Urine Mucus Present /lpf Imaging Data Attestation: I personally reviewed and interpreted this imaging study as follows: Radiologist's impression: ITS Impressions Abdomen/Pelvis CT 09/26/24 08:18 IMPRESSION: 1. Small sliding hiatal hernia. Upper Quadrant Ultrasound 09/26/24 10:08 IMPRESSION: 1. No etiology for abnormal liver function tests. Discharge Plan Discharge Clinical Impression: Pancreatitis Qualifiers: Chronicity: acute Pancreatitis type: unspecified pancreatitis type Acute pancreatitis complication: no infection or necrosis Qualified Code(s): K85.90 - Acute pancreatitis without necrosis or infection, unspecified Patient Disposition: Still a Patient Condition: Stable Instructions: Antibiotic Form Patient Language: Chinese Prescriptions: No Action gabapentin 300 mg (9)- 600 mg (24) tablet, Ext Rel 24hr dose pack 2 ea PO .hs tizanidine 2 mg capsule 2 mg PO QHS azathioprine 50 mg tablet 50 mg PO BID oxybutynin chloride 5 mg tablet 5 mg PO BID Qty: 180 3RF pantoprazole 40 mg tablet,delayed release (DR/EC) 40 mg PO QAM diclofenac sodium 75 mg tablet,delayed release (DR/EC) 75 mg PO BID ondansetron 8 mg tablet,disintegrating 8 mg PO Q8H PRN (Reason: nausea and vomiting) Qty: 30 0RF buspirone 10 mg tablet See Rx Instructions .ROUTE .COMPLEX Qty: 180 3RF Dose Instruction: TAKE 1 TABLET TWICE DAILY Rx Instructions: TAKE 1 TABLET TWICE DAILY trazodone 100 mg tablet See Rx Instructions .ROUTE .COMPLEX Qty: 90 3RF Dose Instruction: TAKE 1 TABLET AT BEDTIME Rx Instructions: TAKE 1 TABLET AT BEDTIME ezetimibe 10 mg tablet 10 mg PO DAILY Qty: 90 3RF rosuvastatin 40 mg tablet 40 mg PO DAILY Qty: 90 3RF triamcinolone acetonide 0.1 % cream See Rx Instructions .ROUTE .COMPLEX Qty: 30 0RF Dose Instruction: APPLY TOPICALLY TWICE A DAY TO RIGHT FOREARM UP TO TWO WEEKS Rx Instructions: APPLY TOPICALLY TWICE A DAY TO RIGHT FOREARM UP TO TWO WEEKS clopidogrel 75 mg tablet 75 mg PO DAILY bupropion HCl 150 mg tablet extended release 24 hr 150 mg PO DAILY Women's Multivitamin 18 mg-400 mcg- 500 mg-50 mcg Tablet 1 tablet PO DAILY acetaminophen 325 mg Tablet 650 mg PO Q6H PRN (Reason: Pain) Follow-up/Referrals: Jorge Sweeney MD [Primary Care Provider] - Time of Disposition: 10:42
[2024-09-26] MEDS: LACTATED RINGERS 1,000 ML 999 ML IV CONT (12:25)
--- NOTE | 2024-09-26 12:28 | PC.NURSE ---
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 This RN attempted to educate patient on the hospital being full with sick patients and we are working as quickly and efficiently as we can to get her a bed upstairs. The patient then stated she was in pain. This RN offered the patient the ordered PRN pain medication to which the patient declined. The patient stated she was uncomfortable in the bed, this RN offered adjusting the bed and the patient declined. The patient was then offered by this RN, to check about a hospital bed while we wait, and the patient declined. brownfield redevelopment site manager and ED wire charger aware.
--- NOTE | 2024-09-26 12:56 | P.HP_ITS ---
H&P: HPI History of Present Illness Date/Time: 09/26/24 12:56 Chief Complaint: Abdominal Pain Narrative: 69 y/o F presents here with abdominal pain with PMH of rheumatoid arthritis, hyperlipidemia, fibromyalgia, and anxiety/depression. The patient presents here from home for further evaluation of abdominal pain. She reports she initially developed nausea and poor appetite approximately 2 weeks ago. Nausea and vomiting would occur shortly after eating. Then developed diffuse upper abdominal pain over the last week. The pain is diffuse/upper, radiation into her back with a band-like quality, initially intermittent and then became constant, aggravated by deep inspiration and postprandial, and alleviated by IV fluids. Also endorsing chills, body aches, and fatigue. She denies changes in stool color, diarrhea or new constipation (hx of chronic constipation), shortness of breath or new cough (baseline dry cough secondary to smoking). She has no known history of pancreatitis. She reports very rare ETOH use, last at [facility] time. Denies previous IV drug or personal/family hx of genetic abnormalities. Initial VS at presentation: HR 93, RR 16, 90/58, and 97% on RA. ED workup showed: WBC 20.1, hemoglobin 11.8, creatinine 1.21 and GFR 44 (no previous available for comparison), glucose 164, AST 188, ALT 143, alk-phos 223, lipase 6763. UA likely contaminated, will recollect. CT of the abdomen/pelvis showed a small sliding hiatal hernia. US of the upper right quadrant showed no etiology for patient's abnormal liver function tests. Review of Systems Review of Systems: All systems reviewed & are unremarkable except as noted in HPI and below [facility] Past Medical History Medical History Depression Carotid stenosis, bilateral (01/2020) HLD (hyperlipidemia) Rheumatoid arthritis Fibromyalgia GERD (gastroesophageal reflux disease) Surgical History Surgical History History of tonsillectomy History of left-sided carotid endarterectomy (~07/2021) Family History Family History Sibling Schizophrenia Sibling Acute myocardial infarction Other Diabetes mellitus Social History Social History Smoking packs per day: 0.5 Smoking cigarettes per day: 10.0 Years smoked: 50 Smoking pack-years: 25.00 Smoking status: Former smoker Tobacco type: cigarettes Second hand tobacco smoke exposure: No Smoking end date: 08/13/23 Additional smoking assessment comments: 08/14 ppd Alcohol intake: never Alcohol use details: occasional Substance use: never Substance use type: does not use Do You Feel Safe in your Home?: Yes Lack of Transportation: No Lack of Food: Never True Current Housing: I Have Housing Concerned About Future Housing: No Difficulty Paying Gas/Electric Bills: No Difficulty Paying for Meds: No Currently Unemployed: No Education: Bachelor's Degree Difficulty w/ Childcare or Family Care: No Living arrangements: with family 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 Gender identity (if verbalized by the patient): Female Spiritual care concerns: No Meds Home Medications and Allergies Home Medications ?Medication ?Instructions ?Recorded ?Confirmed ?Type gabapentin 300 mg (9)-600 mg (24) 2 ea PO .hs 07/13/22 09/26/24 History tablet, ER 24 hr dose pack tizanidine 2 mg capsule 2 mg PO QHS 07/13/22 09/26/24 History diclofenac sodium 75 mg 75 mg PO BID 02/06/24 09/26/24 History tablet,delayed release pantoprazole 40 mg tablet,delayed 40 mg PO QAM 02/06/24 09/26/24 History release bupropion HCl 150 mg 24 hr tablet, 150 mg PO DAILY 02/22/24 09/26/24 History extended release clopidogrel 75 mg tablet 75 mg PO DAILY 02/22/24 09/26/24 History abioeduh-ird-rmqt 18 mg-FA 400 1 tablet PO DAILY 02/22/24 09/26/24 History mcg-calcium 500 mg-vit K 50 mcg tablet (Women's Multivitamin) acetaminophen 325 mg tablet 650 mg PO Q6H PRN Pain 03/05/24 09/26/24 History buspirone 10 mg tablet See Rx Instructions .Route 07/14/24 09/26/24 Rx .COMPLEX #180 tabs azathioprine 50 mg tablet 50 mg PO BID 08/11/24 09/26/24 History oxybutynin chloride 5 mg tablet 5 mg PO BID #180 tabs 08/11/24 09/26/24 Rx trazodone 100 mg tablet See Rx Instructions .Route 08/13/24 09/26/24 Rx .COMPLEX #90 tabs ezetimibe 10 mg tablet 10 mg PO DAILY #90 tabs 08/21/24 09/26/24 Rx rosuvastatin 40 mg tablet 40 mg PO DAILY #90 tabs 08/21/24 09/26/24 Rx triamcinolone acetonide 0.1 % See Rx Instructions .Route 09/08/24 09/26/24 Rx topical cream .COMPLEX #30 grams ondansetron 8 mg disintegrating 8 mg PO Q8H PRN nausea and 09/22/24 09/26/24 Rx tablet vomiting #30 tabs Allergies Allergy/AdvReac Type Severity Reaction Status Date / Time No Known Allergies Allergy Verified 09/22/24 11:15 Vital Signs Vital Signs - 24 hr 09/26/24 05:44 09/26/24 05:45 09/26/24 05:46 Pulse Rate 93 92 92 Respiratory Rate 16 15 16 Blood Pressure 90/58 L Pulse Oximetry 96 98 98 09/26/24 06:01 09/26/24 06:15 09/26/24 06:16 Pulse Rate 87 88 86 Respiratory Rate 16 23 H 14 Blood Pressure 98/56 L 98/56 L Pulse Oximetry 94 94 94 09/26/24 06:30 09/26/24 06:31 09/26/24 08:23 Pulse Rate 85 85 90 Respiratory Rate 16 19 19 Blood Pressure 94/57 L Pulse Oximetry 96 96 91 09/26/24 08:30 09/26/24 08:45 09/26/24 09:00 Pulse Rate 87 89 85 Respiratory Rate 12 14 14 Blood Pressure 88/52 L Pulse Oximetry 98 100 98 09/26/24 10:00 09/26/24 10:15 09/26/24 10:30 Pulse Rate 82 85 81 Respiratory Rate 16 14 16 Blood Pressure Pulse Oximetry 97 97 94 09/26/24 10:31 09/26/24 11:00 09/26/24 11:01 Pulse Rate 79 82 83 Respiratory Rate 12 14 14 Blood Pressure 96/56 L 70/44 L Pulse Oximetry 96 94 95 09/26/24 11:15 09/26/24 11:30 09/26/24 11:31 Pulse Rate 81 83 77 Respiratory Rate 15 17 15 Blood Pressure 80/44 L Pulse Oximetry 94 93 94 09/26/24 12:00 09/26/24 12:01 09/26/24 12:15 Pulse Rate 78 83 79 Respiratory Rate 12 16 16 Blood Pressure 86/48 L Pulse Oximetry 97 96 97 Exam Const: General: comfortable and no acute distress Other: , female, nontoxic appearance. Reclining in ED stretcher. HENMT: Face/Nose/Sinus: Normal nares present Mouth: Yes moist mucous membranes Other: Poor dentition throughout. Eyes: General: appearance normal, both eyes and all related structures Sclera: sclerae normal Pupils: Equal, round and reactive pupils present EOM: EOMs intact bilaterally Neck: Lymphatic: lymphadenopathy Other: Left sided, submandibular gland versus lymphadenopathy Resp: Effort & Inspection: normal respiratory effort Other: Bibasilar crackles Cardio: Rate: regular rate Rhythm: regular rhythm Other: +murmur, no rub or ectopy. GI: Other: Abdomen soft, nondistended, nontender. No hepatomegaly or splenomegaly appreciated. Normoactive bowel sounds in all quadrants. Skin: General skin exam: normal color and no rashes or lesions noted Wounds: no wounds Neuro: Speech: normal speech Motor exam (neuro): 5/5 motor strength present throughout Sensory Exam: normal sensation Other: A&O x4 Extrem: General: normal to inspection Psych: Mental Status: mental status grossly normal Affect: normal affect Other: Fair insight and judgment, pleasant H&P: Results Labs Labs: Short CBC 09/26/24 Range/Units 07:18 WBC 28.1 H (4.5-10.0) K/mm3 Hgb 11.8 L (12.0-15.0) g/dL Hct 35.4 L (37.0-47.0) % Plt Count 407 H (150-375) k/mm3 BMP 09/26/24 07:18 Sodium 139 Potassium 3.8 Chloride 98 Carbon Dioxide 30 BUN 29 H Creatinine 1.21 H Glucose 164 H Calcium 8.9 Liver Function 09/26/24 Range/Units 07:18 Total Bilirubin 1.3 (0.2-1.3) mg/dL AST 188 H (14-36) U/L ALT 143 H (6-35) U/L Alkaline Phosphatase 223 H (38-126) U/L Albumin 3.5 (3.5-5.1) g/dL Urine 09/26/24 Range/Units 07:18 Urine Color Dark yellow (Yellow) Urine Appearance Cloudy H (Clear) Urine pH 5.0 (5.0-9.0) Ur Specific [place] 1.030 (1.001-1.035) Urine Protein 2+ H (Negative) mg/dL Urine Glucose (UA) Negative (Negative) mg/dL Assessment and Plan Assessment and plan (1) Pancreatitis: Qualifiers: Acute pancreatitis complication: no infection or necrosis Chronicity: acute Pancreatitis type: unspecified pancreatitis type Qualified Code(s): K85.90 - Acute pancreatitis without necrosis or infection, unspecified Code(s): K85.90 - Acute pancreatitis without necrosis or infection, unspecified Status: Acute Assessment and Plan: - Lipase: 6763, trend - +transaminitis, see below - add CRP, TSH w/reflex, and lipid panel - CT abd/pelvis: 1. Small sliding hiatal hernia. - US RUQ: 1. No etiology for abnormal liver function tests. - IV fluids: 2L bolus -> 200 mL/hr - reviewed home medications, patient is on azathioprine for RA and Zetia/Atorvastatin for HLD. hold meds. - analgesics and antipyretics p.r.n. - GI consulted, awaiting formal recs (2) Transaminitis: Code(s): R74.01 - Elevation of levels of liver transaminase levels Status: Acute Assessment and Plan: - AST 188, ALT 143, Alk Phos 223 - ETOH use: Rare, last used in July - see workup above Plan Diet: NPO except ice chips GI Prophylaxis: Famotidine b.i.d. DVT Prophylaxis: SCDs Lines: Peripheral Code Status: Full code Quality VTE Prophylaxis VTE prophylaxis: mechanical ordered Hospitalist MIPS Advance Care Plan I have confirmed that the patient's Advanced Care Plan is present, code status is documented, or surrogate decision maker is listed in patient medical record.: Yes Medication Reconciliation I have utilized all available resources to obtain, update and review the patients current medications (includes all prescriptions, OTC, herbals, cannabis, and nutritional supplements).: Yes
[2024-09-26 15:04] LABS: CRP 21.4 mg/dL (<1.0); Cholesterol 62 mg/dL (0-200); HDL Direct 23 mg/dL; Triglycerides 58 mg/dL (<150)
[2024-09-26] MEDS: HYDROcodone/acetaminophen (*CRX) 5-325 MG TABLET 1 TAB PO (15:08)
[2024-09-26] MEDS: LACTATED RINGERS 1,000 ML 125 ML IV CONT (15:17)
[2024-09-26 16:44] LABS: Thyroid Stimulating Hormone Reflex 0.494 uIU/mL (0.465-4.68)
[2024-09-26 16:55] LABS: LDL Cholesterol Direct < 30 mg/dL
[2024-09-26 17:03] LABS: Basophils Absolute Auto 0.1 K/mm3 (0.0-0.1); Basophils Percent Auto 0.5 % (0.2-1.2); Eosinophils Absolute Auto 0.1 K/mm3 (0-0.3); Eosinophils Percent Auto 0.3 % (0-4.4); Hematocrit 29.4 % (37.0-47.0); Hemoglobin 9.9 g/dL (12.0-15.0); Immature Granulocyte Absolute 0.13 K/mm3 (0.00-0.031); Immature Granulocyte Percent A 0.7 % (0-0.5); Lymphocytes Absolute Auto 1.34 K/mm3 (0.9-3.2); Lymphocytes Percent Auto 6.8 % (18.3-44.2); Mean Corpuscular HGB Conc 33.7 g/dl (32-36); Mean Corpuscular Hemoglobin 30.1 pg (26-34); Mean Corpuscular Volume 89.4 fl (80-100); Mean Platelet Volume 10.3 fl (7.4-10.4); Monocytes Absolute Auto 0.9 K/mm3 (0.1-0.6); Monocytes Percent Auto 4.5 % (2.6-8.5); Neutrophils Absolute Auto 17.3 K/mm3 (1.3-6.7); Neutrophils Percent Auto 87.2 % (45.5-73.1); Platelet Count Result 327 k/mm3 (150-375); Red Blood Count 3.29 M/mm3 (4.2-5.4); Red Cell Distribution Width 14.8 % (11.5-14.5); White Blood Count 19.9 K/mm3 (4.5-10.0)
--- NOTE | 2024-09-26 17:19 | P.CONGI_ITS ---
Assessment and Plan Assessment and plan (1) Pancreatitis: Qualifiers: Acute pancreatitis complication: no infection or necrosis Chronicity: a cute Pancreatitis type: unspecified pancreatitis type Qualified Code(s): K 85.90 - Acute pancreatitis without necrosis or infection, unspecified Code(s): K85.90 - Acute pancreatitis without necrosis or infection, unspecified Status: Acute Assessment and Plan: The patient presents with acute pancreatitis of unknown etiology. Significantly elevated transaminase levels raise suspicion for a biliary cause, despite a negative initial abdominal ultrasound. If clinical suspicion for biliary disease remains high, a repeat ultrasound is recommended in 48-72 hours. Fluid resuscitation will continue at 1.5 cc/kg/hour to mitigate the risk of developing necrotizing pancreatitis. Stat CBC, CMP, and CRP will be obtained, with repeat testing scheduled for tomorrow. The primary objective of these tests is to assess for adequate hemodilution, which can help prevent progression to necrosis. Serial lipase measurements will not be performed, as lipase levels are most useful for the initial diagnosis of pancreatitis. Plan - Continue LR @ 125 cc/hr (1.5 cc/kg/hr) until tomorrow when we will assess volume status and labs - Ultrasound of the abdomen (RUQ) on Sunday - Keep NPO for now, will follow GI Consult Note Consult date/time: 09/26/24 17:19 HPI: Asmita Samson, a 69-year-old female, presented to the emergency room with a two-week history of mild to moderate, intermittent abdominal pain accompanied by nausea. Yesterday, her abdominal pain worsened significantly, reaching an 8/10 in intensity and radiating to her back and both upper quadrants. This exacerbation was associated with increased nausea. Upon arrival to the ED, her laboratory findings included a lipase of 6733 U/L, hematocrit of 35.4%, BUN of 29 mg/dL, AST of 188 U/L, ALT of 143 U/L, and alkaline phosphatase of 223 U/L. An abdominal ultrasound did not reveal gallstones. A CT scan of the abdomen and pelvis, which incidentally noted a hiatal hernia, was otherwise normal. Currently, the patient reports significant improvement in her abdominal pain, which is now minimal. Review of Systems 2 Review of Systems: All systems reviewed & are unremarkable except as noted in HPI and below PMFSH Past Medical History Medical History Depression Carotid stenosis, bilateral (01/2020) HLD (hyperlipidemia) Rheumatoid arthritis Fibromyalgia GERD (gastroesophageal reflux disease) Surgical History Surgical History History of tonsillectomy History of left-sided carotid endarterectomy (~07/2021) Family History Family History Sibling Schizophrenia Sibling Acute myocardial infarction Other Diabetes mellitus Social History Social History Smoking packs per day: 0.5 Smoking cigarettes per day: 10.0 Years smoked: 50 Smoking pack-years: 25.00 Smoking status: Former smoker Tobacco type: cigarettes Second hand tobacco smoke exposure: No Smoking end date: 08/13/23 Additional smoking assessment comments: 1/2 ppd Alcohol intake: never Alcohol use details: occasional Substance use: never Substance use type: does not use Do You Feel Safe in your Home?: Yes Lack of Transportation: No Lack of Food: Never True Current Housing: I Have Housing Concerned About Future Housing: No Difficulty Paying Gas/Electric Bills: No Difficulty Paying for Meds: No Currently Unemployed: No Education: Bachelor's Degree Difficulty w/ Childcare or Family Care: No Living arrangements: with family 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 Gender identity (if verbalized by the patient): Female Spiritual care concerns: No Meds Home Medications and Allergies Home Medications ?Medication ?Instructions ?Recorded ?Confirmed ?Type gabapentin 300 mg (9)-600 mg (24) 2 ea PO .hs 07/13/22 09/26/24 History tablet, ER 24 hr dose pack tizanidine 2 mg capsule 2 mg PO QHS 07/13/22 09/26/24 History diclofenac sodium 75 mg 75 mg PO BID 02/06/24 09/26/24 History tablet,delayed release pantoprazole 40 mg tablet,delayed 40 mg PO QAM 02/06/24 09/26/24 History release bupropion HCl 150 mg 24 hr tablet, 150 mg PO DAILY 02/22/24 09/26/24 History extended release clopidogrel 75 mg tablet 75 mg PO DAILY 02/22/24 09/26/24 History yywlvbwq-kiy-xgly 18 mg-FA 400 1 tablet PO DAILY 02/22/24 09/26/24 History mcg-calcium 500 mg-vit K 50 mcg tablet (Women's Multivitamin) acetaminophen 325 mg tablet 650 mg PO Q6H PRN Pain 03/05/24 09/26/24 History buspirone 10 mg tablet See Rx Instructions .Route 07/14/24 09/26/24 Rx .COMPLEX #180 tabs azathioprine 50 mg tablet 50 mg PO BID 08/11/24 09/26/24 History oxybutynin chloride 5 mg tablet 5 mg PO BID #180 tabs 08/11/24 09/26/24 Rx trazodone 100 mg tablet See Rx Instructions .Route 08/13/24 09/26/24 Rx .COMPLEX #90 tabs ezetimibe 10 mg tablet 10 mg PO DAILY #90 tabs 08/21/24 09/26/24 Rx rosuvastatin 40 mg tablet 40 mg PO DAILY #90 tabs 08/21/24 09/26/24 Rx triamcinolone acetonide 0.1 % See Rx Instructions .Route 09/08/24 09/26/24 Rx topical cream .COMPLEX #30 grams ondansetron 8 mg disintegrating 8 mg PO Q8H PRN nausea and 09/22/24 09/26/24 Rx tablet vomiting #30 tabs Allergies Allergy/AdvReac Type Severity Reaction Status Date / Time No Known Allergies Allergy Verified 09/22/24 11:15 Vital Signs Vital Signs - 24 hr 09/26/24 05:44 09/26/24 05:45 09/26/24 05:46 Pulse Rate 93 92 92 Respiratory Rate 16 15 16 Blood Pressure 90/58 L Pulse Oximetry 96 98 98 09/26/24 06:01 09/26/24 06:15 09/26/24 06:16 Pulse Rate 87 88 86 Respiratory Rate 16 23 H 14 Blood Pressure 98/56 L 98/56 L Pulse Oximetry 94 94 94 09/26/24 06:30 09/26/24 06:31 09/26/24 08:23 Pulse Rate 85 85 90 Respiratory Rate 16 19 19 Blood Pressure 94/57 L Pulse Oximetry 96 96 91 09/26/24 08:30 09/26/24 08:45 09/26/24 09:00 Pulse Rate 87 89 85 Respiratory Rate 12 14 14 Blood Pressure 88/52 L Pulse Oximetry 98 100 98 09/26/24 10:00 09/26/24 10:15 09/26/24 10:30 Pulse Rate 82 85 81 Respiratory Rate 16 14 16 Blood Pressure Pulse Oximetry 97 97 94 09/26/24 10:31 09/26/24 11:00 09/26/24 11:01 Pulse Rate 79 82 83 Respiratory Rate 12 14 14 Blood Pressure 96/56 L 70/44 L Pulse Oximetry 96 94 95 09/26/24 11:15 09/26/24 11:30 09/26/24 11:31 Pulse Rate 81 83 77 Respiratory Rate 15 17 15 Blood Pressure 80/44 L Pulse Oximetry 94 93 94 09/26/24 12:00 09/26/24 12:01 09/26/24 12:15 Pulse Rate 78 83 79 Respiratory Rate 12 16 16 Blood Pressure 86/48 L Pulse Oximetry 97 96 97 09/26/24 12:31 09/26/24 13:01 09/26/24 13:31 Pulse Rate 79 81 81 Respiratory Rate 16 16 20 Blood Pressure 93/59 L 100/50 L 75/41 L Pulse Oximetry 96 99 99 09/26/24 14:02 09/26/24 14:09 09/26/24 14:31 Pulse Rate 80 74 80 Respiratory Rate 16 15 20 Blood Pressure 79/54 L 87/43 L 96/65 L Pulse Oximetry 98 100 96 09/26/24 16:05 09/26/24 16:31 Pulse Rate 77 79 Respiratory Rate 13 12 Blood Pressure 99/44 L 80/50 L Pulse Oximetry 97 98 Exam 2 Narrative: Alert and oriented x3. Not jaundiced. Lungs and chest: Clear. Abdomen: Soft, nontender, nondistended, no hepatomegaly, no masses. Rest of the exam within normal limits. Results Labs 09/26/24 16:57 09/26/24 07:18 Labs: Short CBC 09/26/24 09/26/24 Range/Units 07:18 16:57 WBC 28.1 H 19.9 H (4.5-10.0) K/mm3 Hgb 11.8 L 9.9 L (12.0-15.0) g/dL Hct 35.4 L 29.4 L (37.0-47.0) % Plt Count 407 H 327 (150-375) k/mm3 BMP 09/26/24 07:18 Sodium 139 Potassium 3.8 Chloride 98 Carbon Dioxide 30 BUN 29 H Creatinine 1.21 H Glucose 164 H Calcium 8.9 Liver Function 09/26/24 Range/Units 07:18 Total Bilirubin 1.3 (0.2-1.3) mg/dL AST 188 H (14-36) U/L ALT 143 H (6-35) U/L Alkaline Phosphatase 223 H (38-126) U/L Albumin 3.5 (3.5-5.1) g/dL Urine 09/26/24 Range/Units 07:18 Urine Color Dark yellow (Yellow) Urine Appearance Cloudy H (Clear) Urine pH 5.0 (5.0-9.0) Ur Specific [place] 1.030 (1.001-1.035) Urine Protein 2+ H (Negative) mg/dL Urine Glucose (UA) Negative (Negative) mg/dL
[2024-09-26 17:25] LABS: Anion Gap 5 mmol/L (4-12); Blood Urea Nitrogen 28 mg/dL (7-17); CRP 22.6 mg/dL (<1.0); Calcium 8.2 mg/dL (8.4-10.2); Carbon Dioxide 30 mmol/L (22-30); Chloride 100 mmol/L (98-107); Estimated CRCL calculation 56 ml/min; Estimated Glomerular Filt Rate > 60; Glucose 113 mg/dL (65-110); Potassium 3.4 mmol/L (3.4-5.0); Sodium 135 mmol/L (137-145)
--- NOTE | 2024-09-26 18:47 | PC.NURSE ---
this rn spoke with patient about gabapentin medication. pt states that at home she takes the 300mg tabs but sometimes I take one, sometimes 2 or 3 . this rn confirmed and notified with Maryann from pharmacy.
[2024-09-26] MEDS: oxyBUTYnin CHLORIDE 5 MG TABLET PO (19:43)
[2024-09-26] MEDS: traZODone HCL 50 MG TABLET 100 MG PO (21:01)
[2024-09-26] MEDS: DICLOFENAC SOD 75 MG TABLET.EC PO (21:02)
[2024-09-26] MEDS: busPIRone HCL 10 MG TABLET PO (21:03)
[2024-09-26] MEDS: TRIAMCINOLONE ACET 0.1% CREAM 15 GM TUBE 1 APPLIC TOPICAL (21:14)
[2024-09-26] MEDS: FAMOTIDINE 20 MG/2 ML VIAL IV PUSH (21:14)
--- NOTE | 2024-09-26 21:17 | PC.NURSE ---
patient requesting new IV. This rn removed a 20 guage IV in the left Ac with catheter intact upon removal. this rn placed a 20 guage IV in the left hand.
--- OUTSIDE RECORDS SUMMARY | 2024-09-26 21:19 | XMS_ITS | Referral Summary ---
Author Organization [facility] Address [address] [place] [phone] Care Team Providers Care Conductor/Engineer Name Role Phone Jorge Sweeney MD Primary Care Prov ider Encounters Date Type Department Care Team Description 09/18/2024 1:34 PM SWINGING CUT OFF SAW OPERATOR - 09/18/2024 11:59 PM SWINGING CUT OFF SAW OPERATOR Hospital Encounter [facility] Imaging and Radiology [address] [place] [phone] Screening mammogram, encounter for Discharge Disposition: Discharge to home or self care 09/18/2024 11:00 AM SWINGING CUT OFF SAW OPERATOR - 09/18/2024 11:59 PM [facility] Hospital Encounter [facility] Vascular Lab [address] [place] [id number] Other specified disorders of bone density and structure, unspecified site; Bilateral carotid artery stenosis Discharge Disposition: Discharge to home or self care 09/18/2024 1:30 PM SWINGING CUT OFF SAW OPERATOR - 09/18/2024 11:59 PM [facility] Hospital Encounter [facility] Imaging and Radiiology [address] [place] [phone] Other specified disorders of bone density [...] (06/28/2020): Added automatically from request for surgery [id number] Social History Tobacco Use Types Packs/Day Years [...] on file Legal Sex Female 3:23 AM SWINGING CUT OFF SAW OPERATOR Gender Identity Not on file Sexual Orientation Not on file Last Filed Vital Signs Vital Sign Reading Time Taken Comments Blood Pressure 130/72 07/24/2020 12:25 PM SWINGING CUT OFF SAW OPERATOR Pulse 88 07/24/2020 1:00 PM SWINGING CUT OFF SAW OPERATOR Temperature 36.7 C (98 F) 07/24/2020 4:00 AM SWINGING CUT OFF SAW OPERATOR Respiratory Rate 16 07/24/2020 1:00 PM SWINGING CUT OFF SAW OPERATOR Oxygen Saturation 98% 07/24/2020 1:00 PM SWINGING CUT OFF SAW OPERATOR Inhaled Oxygen Concentration - - Weight 91.6 kg (202 lb) 07/23/2020 11:53 AM SWINGING CUT OFF SAW OPERATOR Height 167.6 cm (5' 6 ) 07/23/2020 11:53 AM SWINGING CUT OFF SAW OPERATOR Body Mass Index 32.6 07/23/2020 11:53 AM SWINGING CUT OFF SAW OPERATOR Plan of Treatment Not on file Procedures Procedure Name Priority Date/Time Associated Diagnosis Comments DEXA AXIAL SKELETON BONE DENSITY 1 OR MORE SITES Schedule Routine, Read Routine (OP Routine) 09/18/2024 2:17 PM SWINGING CUT OFF SAW OPERATOR Other specified disorders of bone density and structure, unspecified site SCREENING MAMMOGRAM BILATERAL W CHARAN Schedule Routine, Read Routine (OP Routine) 09/18/2024 1:56 PM SWINGING CUT OFF SAW OPERATOR Screening mammogram, encounter for US CAROTIDS DUPLEX BILATERAL Schedule Routine, Read Routine (OP Routine) 09/18/2024 11:36 AM SWINGING CUT OFF SAW OPERATOR Bilateral carotid artery stenosis from Last 3 Months Results * Dexa Axial Skeleton Bone Density 1 or 2 Site (09/18/2024 2:17 PM SWINGING CUT OFF SAW OPERATOR) Anatomical Region Laterality Modality Body N/A Other 09/19/2024 8:29 AM SWINGING CUT OFF SAW OPERATOR Impressions 09/19/2024 8:29 AM SWINGING CUT OFF SAW OPERATOR Osteopenia. Consider follow-up bone densitometry evaluation in 2-3 years. Electronically signed by: Geraldo Martin M.D. Narrative 09/19/2024 8:29 AM SWINGING CUT OFF SAW OPERATOR EXAMINATION: DEXA AXIAL SKELETON BONE DENSITY 1 OR MORE SITES DATE: 09/18/2024 1:30 PM HISTORY: 69 [id number]-[id number] postmenopausal woman; other specified disorders of bone [...] SITES DATE: 09/18/2024 1:30 PM HISTORY: 69 [id number]-[id number] postmenopausal woman; other specified disorders of bone [...] Mammogram Bilateral W Charan (09/18/2024 1:56 PM SWINGING CUT OFF SAW OPERATOR) Anatomical Region Laterality Modality Breast Bilateral Mammography 09/18/2024 2:41 PM SWINGING CUT OFF SAW OPERATOR Impressions 09/18/2024 2:41 PM SWINGING CUT OFF SAW OPERATOR No evidence of malignancy in either breast. FINAL ASSESSMENT: BI-RADS Category 1: Negative. RECOMMENDATION: Recommend return for annual screening mammogram in 12 months. Electronically signed by: KRISTA CRAWFORD MD Narrative 09/18/2024 2:41 PM SWINGING CUT OFF SAW OPERATOR EXAMINATION: BILATERAL SCREENING MAMMOGRAM COMPARISON: All prior [...] US Carotids Duplex Bilateral (09/18/2024 11:36 AM SWINGING CUT OFF SAW OPERATOR) Anatomical Region Laterality Modality Vascular Bilateral Ultrasound 09/18/2024 1:04 PM SWINGING CUT OFF SAW OPERATOR Impressions 09/18/2024 1:04 PM SWINGING CUT OFF SAW OPERATOR No sonographic evidence of hemodynamically significant narrowing [...] Geraldo Martin M.D. Narrative 09/18/2024 1:04 PM SWINGING CUT OFF SAW OPERATOR EXAMINATION: US CAROTIDS DUPLEX BILATERAL DATE: 09/18/2024 [...] Last 3 Months Insurance MEDICARE [employer] [place] [employer] MEDIC[employer] [place] [employer] [place] [address] [employer] CHO[employer] MEDICARE PPO Advance Directives For more information, please contact: [phone] * Full Code (Latest Code Status on File) Date Activated Date Inactivated Comments 07/23/2020 5:38 PM 07/24/2020 9:05 PM Care Teams Conductor/Engineer Relationship Specialty Start Date End Date Jorge Sweeney MD [address] [place] [address] PCP - General 12/02/20
--- OUTSIDE RECORDS SUMMARY | 2024-09-26 21:19 | XMS_ITS | Clinical Summary ---
Author Organization [facility] Address [address] [facility] [address] [phone] Phone Care Team Providers Care Insurance Plan Specialist Name Role Phone Jorge Sweeney MD Primary Care Provider [phone] Allergies Active Allergy Reactions Criticality Noted Date [...] on file Legal Sex Female 10:54 AM VEHICLE ASSEMBLY INSPECTOR Gender Identity Not on file Sexual Orientation Not on file Last Filed Vital Signs Vital Sign Reading Time Taken Comments Blood Pressure 122/62 10/18/2023 3:09 PM VEHICLE ASSEMBLY INSPECTOR Pulse 73 10/18/2023 3:09 PM VEHICLE ASSEMBLY INSPECTOR Temperature - - Respiratory Rate - - Oxygen Saturation 96% 09/13/2023 8:47 AM VEHICLE ASSEMBLY INSPECTOR Inhaled Oxygen Concentration - - Weight 93 kg (205 lb) 10/18/2023 3:09 PM VEHICLE ASSEMBLY INSPECTOR Height 167.6 cm (5' 6 ) 10/18/2023 3:09 PM VEHICLE ASSEMBLY INSPECTOR Body Mass Index 33.09 10/18/2023 3:09 PM VEHICLE ASSEMBLY INSPECTOR Plan of Treatment Upcoming Encounters Date Type Department Care Team (Late st Contact Info) Description 10/22/2024 2:00 PM CDT Office Visit [facility] Heart and Vascular - [address] [address] [facility] [address] [phone] Shari Lares FNP [address] [facility] [address] [place] [address] Health Maintenance Due Date Last [...] Screening 03/05/2034 OSTEOPOROSIS SCREENING Completed 08/02/2022 Insurance [facility] MEDICARE PART A AND B Care Teams Insurance Plan Specialist Relationship Specialty Start Date End Date Jorge Sweeney MD [address] [place] [phone] PCP - General Family Practice 10/10/23
--- OUTSIDE RECORDS SUMMARY | 2024-09-26 21:20 | XMS_ITS | Referral Summary ---
Author Organization [facility] Address [address] [place] [address] Care Team Providers Care Die Equipment Operator Name Role Phone Jorge Sweeney MD Primary Care Provider + Source Comments [facility],non-owned Affiliates and Associated Physician Practices is amultiple site organization consisting of ambulatory clinics and hospital sitesin [place], [place], [place] and [place]. This disclosure is being madepursuant to the Care Everywhere program and may not contain all information available regarding this patient. Last updated 18.[facility] Allergies Active Allergy Reactions Criticality Noted Date [...] by mouth once daily Active Probiotic Product (Skeed HEALTH PO) Take by mouth once daily [...] Not on file Administered Medications Care Teams Die Equipment Operator Relationship Specialty Start Date End Date Jorge Sweeney MD [address] [facility] [address] [place] [address] PCP - General Family Medicine 03/01/15
--- OUTSIDE RECORDS SUMMARY | 2024-09-26 21:20 | XMS_ITS | Clinical Summary ---
Author Organization [facility] Address [address] [place] [address] Care Team Providers Care Data Processing Systems Consultant Name Role Phone Jorge Sweeney MD Primary Care Provider + Source Comments [facility],non-owned Affiliates and Associated Physician Practices is amultiple site organization consisting of ambulatory clinics and hospital sitesin [place], [place], [place] and [place]. This disclosure is being madepursuant to the Care Everywhere program and may not contain all information available regarding this patient. Last updated 18.[facility] Allergies Active Allergy Reactions Criticality Noted Date [...] by mouth once daily Active Probiotic Product (Hydrophi HEALTH PO) Take by mouth once daily [...] age to complete this topic Care Teams Data Processing Systems Consultant Relationship Specialty Start Date End Date Jorge Sweeney MD [address] [facility] [address] [place] [address] PCP - General Family Medicine 03/01/15
--- OUTSIDE RECORDS SUMMARY | 2024-09-26 21:20 | XMS_ITS | Clinical Summary ---
Author Organization [facility] Address [address] [place] [address] Care Team Providers Care Vat Overhauler Name Role Phone Jorge Sweeney MD Primary [...] (06/28/2020): Added automatically from request for surgery [id number] Encounters Date Type Department Care Team Description 09/18/2024 1:34 PM CHIMNEY REPAIRER - 09/18/2024 11:59 PM [facility] Hospital Encounter [facility] Imaging and Radiology [address] [place] [phone] Screening mammogram, encounter for Discharge Disposition: Discharge to home or self care 09/18/2024 1:30 PM CHIMNEY REPAIRER - 09/18/2024 11:59 PM [facility] Hospital Encounter [facility] Imaging and Radiiology [address] [place] [phone] Other specified disorders of bone density and structure, unspecified site Discharge Disposition: Discharge to home or self care 09/18/2024 11:00 AM CHIMNEY REPAIRER - 09/18/2024 11:59 PM [facility] Hospital Encounter [facility] Vascular Lab [address] [place] [address] Other specified disorders of bone density and [...] on file Legal Sex Female 3:23 AM CHIMNEY REPAIRER Gender Identity Not on file Sexual Orientation [...] Comments Blood Pressure 130/72 07/24/2020 12:25 PM CHIMNEY REPAIRER Pulse 88 07/24/2020 1:00 PM CHIMNEY REPAIRER Temperature 36.7 C (98 F) 07/24/2020 4:00 AM CHIMNEY REPAIRER Respiratory Rate 16 07/24/2020 1:00 PM CHIMNEY REPAIRER Oxygen Saturation 98% 07/24/2020 1:00 PM CHIMNEY REPAIRER Inhaled Oxygen Concentration - - Weight 91.6 kg (202 lb) 07/23/2020 11:53 AM CHIMNEY REPAIRER Height 167.6 cm (5' 6 ) 07/23/2020 11:53 AM CHIMNEY REPAIRER Body Mass Index 32.6 07/23/2020 11:53 AM CHIMNEY REPAIRER Plan of Treatment Health Maintenance Due Date [...] Read Routine (OP Routine) 09/18/2024 2:17 PM CHIMNEY REPAIRER Other specified disorders of bone density and structure, unspecified site SCREENING MAMMOGRAM BILATERAL W CHARAN Schedule Routine, Read Routine (OP Routine) 09/18/2024 1:56 PM CHIMNEY REPAIRER Screening mammogram, encounter for US CAROTIDS DUPLEX BILATERAL Schedule Routine, Read Routine (OP Routine) 09/18/2024 11:36 AM CHIMNEY REPAIRER Bilateral carotid artery stenosis from Last 3 Months Results * Dexa Axial Skeleton Bone Density 1 or 2 Site (09/18/2024 2:17 PM CHIMNEY REPAIRER) Anatomical Region Laterality Modality Body N/A Other 09/19/2024 8:29 AM CHIMNEY REPAIRER Impressions 09/19/2024 8:29 AM CHIMNEY REPAIRER Osteopenia. Consider follow-up bone densitometry evaluation in 2-3 years. Electronically signed by: Geraldo Martin M.D. Narrative 09/19/2024 8:29 AM CHIMNEY REPAIRER EXAMINATION: DEXA AXIAL SKELETON BONE DENSITY 1 OR MORE SITES DATE: 09/18/2024 1:30 PM HISTORY: 69 [id number] postmenopausal woman; other specified disorders of bone [...] SITES DATE: 09/18/2024 1:30 PM HISTORY: 69 [id number] postmenopausal woman; other specified disorders of bone [...] Mammogram Bilateral W Charan (09/18/2024 1:56 PM CHIMNEY REPAIRER) Anatomical Region Laterality Modality Breast Bilateral Mammography 09/18/2024 2:41 PM CHIMNEY REPAIRER Impressions 09/18/2024 2:41 PM CHIMNEY REPAIRER No evidence of malignancy in either breast. FINAL ASSESSMENT: BI-RADS Category 1: Negative. RECOMMENDATION: Recommend return for annual screening mammogram in 12 months. Electronically signed by: MD Taryn JOHNS 09/18/2024 2:41 PM CHIMNEY REPAIRER EXAMINATION: BILATERAL SCREENING MAMMOGRAM COMPARISON: All prior [...] US Carotids Duplex Bilateral (09/18/2024 11:36 AM CHIMNEY REPAIRER) Anatomical Region Laterality Modality Vascular Bilateral Ultrasound 09/18/2024 1:04 PM CHIMNEY REPAIRER Impressions 09/18/2024 1:04 PM CHIMNEY REPAIRER No sonographic evidence of hemodynamically significant narrowing [...] Geraldo Martin M.D. Narrative 09/18/2024 1:04 PM CHIMNEY REPAIRER EXAMINATION: US CAROTIDS DUPLEX BILATERAL DATE: 09/18/2024 [...] Geraldo Martin M.D. us Lucrecia Jenkins NP [facility] PROCEDURES Final Result from Last 3 Months Insurance MEDICARE [facility] MEDICARE [employer] [place] [employer] [place] [employer] MEDIC[employer] PPO Advance Directives For more information, please contact: [phone] * Full Code (Latest Code Status on File) Date Activated Date Inactivated Comments 07/23/2020 5:38 PM 07/24/2020 9:05 PM Care Teams Vat Overhauler Relationship Specialty Start Date End Date Jorge Sweeney MD [address] [place] [address] PCP - General 12/02/20
--- OUTSIDE RECORDS SUMMARY | 2024-09-26 21:20 | XMS_ITS | Patient Health Summary ---
Author Organization [facility] Address [address] [place] [address] Care Team Providers Care Beam Builder Helper Name Role Phone Jorge Sweeney MD Primary Care Provider + Note from [facility],non-owned Affiliates and Associated Physician Practices is amultiple site organization consisting of ambulatory clinics and hospital sitesin [place], [place], [place] and [place]. This disclosure is being madepursuant to the Care Everywhere program and may not contain all information available regarding this patient. Last updated 18.[facility] Allergies * Aspirin(Rash) -Low Criticality * Hmg-Coa-R [...] by mouth once daily * Probiotic Product (BATTERIES & BANDS PO) Take by mouth once daily * [...] CDT) Anatomical Region Laterality Modality Spine Radiographic Berana ging 06/11/2024 4:13 PM CDT Impressions 06/11/2024 [...] MD on 06/11/2024 4:14 PM Tracie Ponce BILL OF MATERIALS CLERK-MORTGAGE PROCESSING CLERK DIAGNOSTIC IMAG ING ORDERABLES * (ABNORMAL) CBC [...] 7:54 PM CDT Narrative Resulting Agency Comment [facility] [address] [place] [phone] Kanu Bustos MD LAB - HEMATOLOGY ORD [...] 7:54 PM CDT Narrative Resulting Agency Comment [facility] [address] [place] [phone] Kanu Bustos MD LAB - CHEMISTRY CA [facility] Organization Address City/State/ZIP Co de Phone Number [...] see injection note Kanu Bustos MD Office [phone] Call Directly [phone] Kanu Bustso MD US ORDERABLES * CYCLIC CITRUL PEPTIDE ANTIBODY IGG/IGA (CCP) (04/12/2015 4:19 PM CDT) CCP Antibodies IgG/IgA 2 0 - 19 units [facility] ACCOUNT BILL Comment: Negative <20 Weak positive 20 - 39 Moderate positive 40 - 59 Strong positive >59 BLOOD SPECIMEN / Unknown 04/12/2015 4:19 PM CDT 04/12/2015 7:41 PM CDT Narrative Resulting Agency Comment [facility] [address] [phone] Kanu Bustos MD LAB - SEROLOGY ORDER SONIA [facility] ACCOUNT BILL * W REFLX (POSITIVE) (PO REF LAB) (04/12/2015 4:19 PM CDT) Direct Negative Negative [facility] ACCOUNT BILL Blood specimen (specimen) BLOOD SPECIMEN / Unknown 04/12/2015 4:19 PM CDT 04/12/2015 7:41 PM CDT Narrative Resulting Agency Comment [facility] [address] [phone] Kanu Bustos MD LAB - SEROLOGY ORDER SONIA [facility] ACCOUNT BILL * (ABNORMAL) C-REACTIVE PROTEIN (04/12/2015 4:19 PM CDT) C-Reactive Protein 0.37(H) <0.30 mg/dL [facility] ACCOUNT BILL Blood specimen (specimen) BLOOD SPECIMEN / Unknown 04/12/2015 4:19 PM CDT 04/12/2015 7:41 PM CDT Narrative Resulting Agency Comment [facility] [address] [place] [phone] Kanu Bustos MD LAB - CHEMISTRY CA RESENDIZ [facility] ACCOUNT BILL * SED RATE WESTERGREN (04/12/2015 4:19 PM CDT) Erythrocyte Sedimentation Rate Westergren 23 0 - 30 mm/hr [facility] ACCOUNT BILL Blood specimen (specimen) BLOOD SPECIMEN / Unknown 04/12/2015 4:19 PM CDT 04/12/2015 7:41 PM CDT Narrative Resulting Agency Comment [facility] [address] [place] [phone] Kanu Bustos MD LAB - HEMATOLOGY ORD ERABLES [facility] ACCOUNT BILL Care Teams Beam Builder Helper Relationship Specialty Start Date End Date Jorge Sweeney MD [address] [address] PCP - General Family Medicine 03/01/15
[2024-09-26] MEDS: GABAPENTIN 300 MG CAPSULE PO (21:54)
--- NOTE | 2024-09-26 22:31 | ADMGEN ---
This patient, Asimta Samson, was admitted to [facility] Surg Room 331-02. Patient/family oriented to hospital policies and general routines including ID bracelet, bed and alarms, visiting hours, pain management, procedures, bathroom and other care routines, personal items, smoking policy, room service/diet, and visiting hours. Information on how to activate the Rapid Response Team has been discussed. Patient/Family are encouraged to report perceived risks to care and to ask questions if they do not understand what they are told or what they should do.
[2024-09-27 05:47] VITALS: BP 90/59; PULSE 67; RESP 18; TEMP 36.7; O2SAT 91
[2024-09-27 06:38] LABS: Basophils Absolute Auto 0.1 K/mm3 (0.0-0.1); Basophils Percent Auto 0.4 % (0.2-1.2); Eosinophils Absolute Auto 0.5 K/mm3 (0-0.3); Eosinophils Percent Auto 3.1 % (0-4.4); Hemoglobin 9.7 g/dL (12.0-15.0); Immature Granulocyte Percent A 0.7 % (0-0.5); Lymphocytes Absolute Auto 1.23 K/mm3 (0.9-3.2); Lymphocytes Percent Auto 8.4 % (18.3-44.2); Mean Corpuscular HGB Conc 33.4 g/dl (32-36); Mean Corpuscular Hemoglobin 30.1 pg (26-34); Mean Corpuscular Volume 90.1 fl (80-100); Mean Platelet Volume 10.9 fl (7.4-10.4); Monocytes Absolute Auto 0.8 K/mm3 (0.1-0.6); Monocytes Percent Auto 5.2 % (2.6-8.5); Neutrophils Percent Auto 82.2 % (45.5-73.1); Platelet Count Result 317 k/mm3 (150-375); Red Blood Count 3.22 M/mm3 (4.2-5.4); White Blood Count 14.6 K/mm3 (4.5-10.0)
[2024-09-27 06:52] LABS: Alanine Aminotransferase 91 U/L (6-35); Albumin Level 2.6 g/dL (3.5-5.1); Alkaline Phosphatase 159 U/L (38-126); Anion Gap 8 mmol/L (4-12); Aspartate Amino Transferase 90 U/L (14-36); Bilirubin,Total 0.7 mg/dL (0.2-1.3); Blood Urea Nitrogen 28 mg/dL (7-17); Calcium 8.2 mg/dL (8.4-10.2); Carbon Dioxide 27 mmol/L (22-30); Chloride 103 mmol/L (98-107); Estimated CRCL calculation 53 ml/min; Estimated Glomerular Filt Rate 59; Glucose 92 mg/dL (65-110); Potassium 3.3 mmol/L (3.4-5.0); Sodium 138 mmol/L (137-145)
[2024-09-27 06:56] VITALS: BP 120/70
[2024-09-27] MEDS: HYDROcodone/acetaminophen (*CRX) 5-325 MG TABLET 1 TAB PO ×2 (08:34→20:16)
[2024-09-27] MEDS: FAMOTIDINE 20 MG/2 ML VIAL IV PUSH (08:35)
[2024-09-27] MEDS: CLOPIDOGREL BISULFATE 75 MG TABLET PO (08:35)
[2024-09-27] MEDS: buPROPion HCL XL (24 HR) 150 MG TABCR PO (08:35)
[2024-09-27] MEDS: busPIRone HCL 10 MG TABLET PO ×2 (08:35→20:15)
[2024-09-27] MEDS: THERAPEUTIC MULTIVITAMINS/MINERALS TAB (*BKC) 1 TABLET PO (08:35)
[2024-09-27] MEDS: oxyBUTYnin CHLORIDE 5 MG TABLET PO ×2 (08:35→16:14)
[2024-09-27] MEDS: DICLOFENAC SOD 75 MG TABLET.EC PO ×2 (08:35→20:15)
--- NOTE | 2024-09-27 10:28 | PM.IMPN ---
Progress Note: A&P Assessment and Plan (1) Pancreatitis: Qualifiers: Acute pancreatitis complication: no infection or necrosis Chronicity: acute Pancreatitis type: unspecified pancreatitis type Qualified Code(s): K85.90 - Acute pancreatitis without necrosis or infection, unspecified Code(s): K85.90 - Acute pancreatitis without necrosis or infection, unspecified Status: Acute Assessment and Plan: - Lipase: 6763, trend - +transaminitis, see below - add CRP, TSH w/reflex, and lipid panel - CT abd/pelvis: 1. Small sliding hiatal hernia. - US RUQ: 1. No etiology for abnormal liver function tests. - IV fluids: 2L bolus -> 200 mL/hr - reviewed home medications, patient is on azathioprine for RA and Zetia/Atorvastatin for HLD. hold meds. - analgesics and antipyretics p.r.n. - GI consulted, notes reviewed: The patient's acute pancreatitis is mild, with transaminase levels showing significant improvement. Despite a negative initial abdominal ultrasound, I remain suspicious for biliary sludge or small stones that may have been missed. A repeat ultrasound has been ordered for next Sunday, September 29, through the Ambulatory department, to be performed after discharge. The patient will be advanced to a full liquid diet for lunch and a soft diet for dinner. If she tolerates these meals, she can be discharged tomorrow. Plan - Advance diet to full liquids now and soft mechanical for dinner - Keep IV fluids to minimum (50 cc/hr) -- Ultrasound rescheduled for Friday 09/29 (2) Transaminitis: Code(s): R74.01 - Elevation of levels of liver transaminase levels Status: Acute Assessment and Plan: - AST 188, ALT 143, Alk Phos 223- trend labs - ETOH use: Rare, last used in July - see workup above Plan Diet: NPO except ice chips GI Prophylaxis: Famotidine b.i.d. DVT Prophylaxis: SCDs Lines: Peripheral Code Status: Full code Time Spent With Patient Time with patient: 25 - 35 minutes Subjective Date/time seen: 09/27/24 10:28 Interval history: 69 y/o F presents here with abdominal pain with PMH of rheumatoid arthritis, hyperlipidemia, fibromyalgia, and anxiety/depression. The patient presents here from home for further evaluation of abdominal pain. She reports she initially developed nausea and poor appetite approximately 2 weeks ago. Nausea and vomiting would occur shortly after eating. Then developed diffuse upper abdominal pain over the last week. The pain is diffuse/upper, radiation into her back with a band-like quality, initially intermittent and then became constant, aggravated by deep inspiration and postprandial, and alleviated by IV fluids. Also endorsing chills, body aches, and fatigue. She denies changes in stool color, diarrhea or new constipation (hx of chronic constipation), shortness of breath or new cough (baseline dry cough secondary to smoking). She has no known history of pancreatitis. She reports very rare ETOH use, last at [facility]. Denies previous IV drug or personal/family hx of genetic abnormalities. Initial VS at presentation: HR 93, RR 16, 90/58, and 97% on RA. ED workup showed: WBC 20.1, hemoglobin 11.8, creatinine 1.21 and GFR 44 (no previous available for comparison), glucose 164, AST 188, ALT 143, alk-phos 223, lipase 6763. UA likely contaminated, will recollect. CT of the abdomen/pelvis showed a small sliding hiatal hernia. US of the upper right quadrant showed no etiology for patient's abnormal liver function tests. GI was consulted Pt is comfortable, pain is controlled. A repeat ultrasound has been ordered for September 29 (as an oupt) The patient will be advanced to a full liquid diet for lunch and a soft diet for dinner. If she tolerates meals ok- anticipate discharged tomorrow. Review of Systems Review of Systems: All systems reviewed & are unremarkable except as noted in HPI and below Exam Narrative: +murmur. no abdominal tenderness. Const: General: comfortable and no acute distress HENMT: Face/Nose/Sinus: Normal nares present Mouth: Yes moist mucous membranes Other: Poor dentition throughout. Eyes: General: appearance normal, both eyes and all related structures Sclera: sclerae normal Pupils: Equal, round and reactive pupils present EOM: EOMs intact bilaterally Neck: Lymphatic: lymphadenopathy Resp: Effort & Inspection: normal respiratory effort Cardio: Rate: regular rate Rhythm: regular rhythm Other: +murmur, no rub or ectopy. GI: Other: Abdomen soft, nondistended, nontender. No hepatomegaly or splenomegaly appreciated. Skin: General skin exam: normal color and no rashes or lesions noted Wounds: no wounds Neuro: Cranial nerves: Yes Equal, round and reactive pupils present Speech: normal speech Motor exam (neuro): 5/5 motor strength present throughout Sensory Exam: normal sensation Other: A&O x4 Extrem: General: normal to inspection Psych: Mental Status: mental status grossly normal Affect: normal affect Other: Fair insight and judgment, pleasant Objective Data Vital Signs Vital Signs: Vital Signs - 24 hr 09/26/24 10:30 09/26/24 10:31 09/26/24 11:00 Temperature Pulse Rate 81 79 82 Respiratory Rate 16 12 14 Blood Pressure 96/56 L Pulse Oximetry 94 96 94 Oxygen Delivery 09/26/24 11:01 09/26/24 11:15 09/26/24 11:30 Temperature Pulse Rate 83 81 83 Respiratory Rate 14 15 17 Blood Pressure 70/44 L Pulse Oximetry 95 94 93 Oxygen Delivery 09/26/24 11:31 09/26/24 12:00 09/26/24 12:01 Temperature Pulse Rate 77 78 83 Respiratory Rate 15 12 16 Blood Pressure 80/44 L 86/48 L Pulse Oximetry 94 97 96 Oxygen Delivery 09/26/24 12:15 09/26/24 12:31 09/26/24 13:01 Temperature Pulse Rate 79 79 81 Respiratory Rate 16 16 16 Blood Pressure 93/59 L 100/50 L Pulse Oximetry 97 96 99 Oxygen Delivery 09/26/24 13:31 09/26/24 14:02 09/26/24 14:09 Temperature Pulse Rate 81 80 74 Respiratory Rate 20 16 15 Blood Pressure 75/41 L 79/54 L 87/43 L Pulse Oximetry 99 98 100 Oxygen Delivery 09/26/24 14:31 09/26/24 16:05 09/26/24 16:31 Temperature Pulse Rate 80 77 79 Respiratory Rate 20 13 12 Blood Pressure 96/65 L 99/44 L 80/50 L Pulse Oximetry 96 97 98 Oxygen Delivery 09/26/24 17:01 09/26/24 17:31 09/26/24 18:01 Temperature Pulse Rate 85 76 70 Respiratory Rate 19 17 13 Blood Pressure 85/41 L 85/43 L 94/55 L Pulse Oximetry 93 91 93 Oxygen Delivery 09/26/24 21:25 09/26/24 22:00 09/26/24 22:31 Temperature 98.2 F Pulse Rate 67 72 Respiratory Rate 14 14 Blood Pressure 126/84 116/68 Pulse Oximetry 94 100 Oxygen Delivery Room Air 09/27/24 05:47 09/27/24 06:56 09/27/24 07:55 Temperature 98.1 F Pulse Rate 67 Respiratory Rate 18 Blood Pressure 90/59 L 120/70 Pulse Oximetry 91 Oxygen Delivery Room Air Intake/Output Intake/Output: Intake & Output 09/24/24 09/25/24 09/26/24 09/27/24 23:59 23:59 23:59 23:59 Intake Total 3000 240 Balance 3000 240 Meds/Results Medications: Active Medications Generic Name Dose Route Start Last Admin Trade Name Freq PRN Reason Stop Dose Admin Acetaminophen 650 mg 09/26/24 10:30 Acetaminophen 325 Mg Tablet PO Q4H PRN Mild Pain (1-3) or Fever Hydrocodone Bitart/Acetaminophen 1 tab 09/26/24 13:08 09/27/24 08:34 Hydrocodone/Acetaminophen (*Crx) 5-325 Mg Tablet PO 1 tab Q4H PRN Administration Pain Rated 4-6 Bupropion HCl 150 mg 09/27/24 09:00 09/27/24 08:35 Bupropion Hcl Xl (24 Hr) 150 Mg Tabcr PO 150 mg DAILY JONAH Administration Buspirone HCl 10 mg 09/26/24 21:00 09/27/24 08:35 Buspirone Hcl 10 Mg Tablet PO 10 mg Q12HR JONAH Administration Clopidogrel Bisulfate 75 mg 09/27/24 09:00 09/27/24 08:35 Clopidogrel Bisulfate 75 Mg Tablet PO 75 mg DAILY JONAH Administration Diclofenac Sodium 75 mg 09/26/24 21:00 09/27/24 08:35 Diclofenac Sod 75 Mg Tablet.Ec PO 75 mg Q12HR JONAH Administration Famotidine 20 mg 09/26/24 21:00 09/27/24 08:35 Famotidine 20 Mg/2 Ml Vial IV PUSH 20 mg Q12HR JONAH Administration Gabapentin 300 mg 09/26/24 21:00 09/26/24 21:54 Gabapentin 300 Mg Capsule PO 300 mg HS JONAH Administration Hydromorphone HCl 0.5 mg 09/26/24 10:30 Hydromorphone Hcl Inj (*Crx) 1 Mg/Ml Syr IV PUSH Q4H PRN Pain Rated 7-10 Multivitamins/Calcium 1 tablet 09/27/24 09:00 09/27/24 08:35 Therapeutic Multivitamins/Minerals Tab (*Bkc) PO 1 tablet DAILY JONAH Administration Ondansetron HCl 4 mg 09/26/24 10:30 Ondansetron Inj 4 Mg/2 Ml Vial IV PUSH Q4H PRN Nausea Oxybutynin Chloride 5 mg 09/26/24 17:00 09/27/24 08:35 Oxybutynin Chloride 5 Mg Tablet PO 5 mg BID JONAH Administration Trazodone HCl 100 mg 09/26/24 21:00 09/26/24 21:01 Trazodone Hcl 50 Mg Tablet PO 100 mg HS JONAH Administration Triamcinolone Acetonide 1 applic 09/26/24 21:00 09/26/24 21:14 Triamcinolone Acet 0.1% Cream 15 Gm Tube TOPICAL 1 applic Q12HR JONAH Administration Radiology Results: ITS Impressions Abdomen/Pelvis CT 09/26/24 08:18 IMPRESSION: 1. Small sliding hiatal hernia. Upper Quadrant Ultrasound 09/26/24 10:08 IMPRESSION: 1. No etiology for abnormal liver function tests. Labs Labs: Laboratory Results - last 24 hr 09/26/24 09/26/24 09/27/24 07:18 16:57 06:03 WBC 19.9 H 14.6 H RBC 3.29 L 3.22 L Hgb 9.9 L 9.7 L Hct 29.4 L 29.0 L MCV 89.4 90.1 MCH 30.1 30.1 MCHC 33.7 33.4 RDW 14.8 H 15.0 H Plt Count 327 317 MPV 10.3 10.9 H Immature Gran % (Auto) 0.7 H 0.7 H Neut % (Auto) 87.2 H 82.2 H Lymph % (Auto) 6.8 L 8.4 L [place] % (Auto) 4.5 5.2 Eos % (Auto) 0.3 3.1 Baso % (Auto) 0.5 0.4 Lymph # (Auto) 1.34 1.23 [place] # (Auto) 0.9 H 0.8 H Eos # (Auto) 0.1 0.5 H Baso # (Auto) 0.1 0.1 Abs Immat Gran (auto) 0.13 H 0.10 H Absolute Neuts (auto) 17.3 H 12.0 H Absolute Nucleated RBC 0.000 0.000 Nucleated RBC % 0.0 0.0 Sodium 135 L 138 Potassium 3.4 3.3 L Chloride 100 103 Carbon Dioxide 30 27 Anion Gap 5 8 BUN 28 H 28 H Creatinine 0.87 0.93 Estim Creat Clear Calc 56 53 Estimated GFR > 60 59 Glucose 113 H 92 Calcium 8.2 L 8.2 L Total Bilirubin 0.7 AST 90 H ALT 91 H Alkaline Phosphatase 159 H C-Reactive Protein 21.4 H 22.6 H Total Protein 5.0 L Albumin 2.6 L Triglycerides 58 Cholesterol 62 LDL Cholesterol Direct < 30 HDL Direct 23 TSH (Reflex) 0.494 Quality VTE Prophylaxis VTE prophylaxis: mechanical ordered
[2024-09-27] MEDS: LACTATED RINGERS 1,000 ML 125 ML (11:00)
--- NOTE | 2024-09-27 12:17 | P.PNGI_ITS ---
Progress Note: A&P Assessment and Plan (1) Pancreatitis: Qualifiers: Acute pancreatitis complication: no infection or necrosis Chronicity: acute Pancreatitis type: unspecified pancreatitis type Qualified Code(s): K85.90 - Acute pancreatitis without necrosis or infection, unspecified Code(s): K85.90 - Acute pancreatitis without necrosis or infection, unspecified Status: Acute Assessment and Plan: The patient's acute pancreatitis is mild, with transaminase levels showing significant improvement. Despite a negative initial abdominal ultrasound, I remain suspicious for biliary sludge or small stones that may have been missed. A repeat ultrasound has been ordered for next Sunday, September 29, through the Ambulatory department, to be performed after discharge. The patient will be advanced to a full liquid diet for lunch and a soft diet for dinner. If she tolerates these meals, she can be discharged tomorrow. Plan - Advance diet to full liquids now and soft mechanical for dinner - Keep IV fluids to minimum (50 cc/hr) -- Ultrasound rescheduled for Friday 09/29 Subjective Date/time seen: 09/27/24 12:17 Interval history: The patient feels well, no abdominal pain, no nausea or vomiting. She is willing to try oral feedings. Exam Narrative: Abdomen: Soft, nontender, nondistended, no rebound. Rest of the exam within normal limits. Objective Data Vital Signs Vital Signs: Vital Signs - 24 hr 09/26/24 12:31 09/26/24 13:01 09/26/24 13:31 Temperature Pulse Rate 79 81 81 Respiratory Rate 16 16 20 Blood Pressure 93/59 L 100/50 L 75/41 L Pulse Oximetry 96 99 99 Oxygen Delivery 09/26/24 14:02 09/26/24 14:09 09/26/24 14:31 Temperature Pulse Rate 80 74 80 Respiratory Rate 16 15 20 Blood Pressure 79/54 L 87/43 L 96/65 L Pulse Oximetry 98 100 96 Oxygen Delivery 09/26/24 16:05 09/26/24 16:31 09/26/24 17:01 Temperature Pulse Rate 77 79 85 Respiratory Rate 13 12 19 Blood Pressure 99/44 L 80/50 L 85/41 L Pulse Oximetry 97 98 93 Oxygen Delivery 09/26/24 17:31 09/26/24 18:01 09/26/24 21:25 Temperature Pulse Rate 76 70 67 Respiratory Rate 17 13 14 Blood Pressure 85/43 L 94/55 L 126/84 Pulse Oximetry 91 93 94 Oxygen Delivery 09/26/24 22:00 09/26/24 22:31 09/27/24 05:47 Temperature 98.2 F 98.1 F Pulse Rate 72 67 Respiratory Rate 14 18 Blood Pressure 116/68 90/59 L Pulse Oximetry 100 91 Oxygen Delivery Room Air 09/27/24 06:56 09/27/24 07:55 Temperature Pulse Rate Respiratory Rate Blood Pressure 120/70 Pulse Oximetry Oxygen Delivery Room Air Intake/Output Intake/Output: Intake & Output 09/24/24 09/25/24 09/26/24 09/27/24 23:59 23:59 23:59 23:59 Intake Total 3000 240 Balance 3000 240 Meds/Results Medications: Active Medications Generic Name Dose Route Start Last Admin Trade Name Freq PRN Reason Stop Dose Admin Acetaminophen 650 mg 09/26/24 10:30 Acetaminophen 325 Mg Tablet PO Q4H PRN Mild Pain (1-3) or Fever Hydrocodone Bitart/Acetaminophen 1 tab 09/26/24 13:08 09/27/24 08:34 Hydrocodone/Acetaminophen (*Crx) 5-325 Mg Tablet PO 1 tab Q4H PRN Administration Pain Rated 4-6 Bupropion HCl 150 mg 09/27/24 09:00 09/27/24 08:35 Bupropion Hcl Xl (24 Hr) 150 Mg Tabcr PO 150 mg DAILY JONAH Administration Buspirone HCl 10 mg 09/26/24 21:00 09/27/24 08:35 Buspirone Hcl 10 Mg Tablet PO 10 mg Q12HR JONAH Administration Clopidogrel Bisulfate 75 mg 09/27/24 09:00 09/27/24 08:35 Clopidogrel Bisulfate 75 Mg Tablet PO 75 mg DAILY JONAH Administration Diclofenac Sodium 75 mg 09/26/24 21:00 09/27/24 08:35 Diclofenac Sod 75 Mg Tablet.Ec PO 75 mg Q12HR JONAH Administration Famotidine 20 mg 09/26/24 21:00 09/27/24 08:35 Famotidine 20 Mg/2 Ml Vial IV PUSH 20 mg Q12HR JONAH Administration Gabapentin 300 mg 09/26/24 21:00 09/26/24 21:54 Gabapentin 300 Mg Capsule PO 300 mg HS JONAH Administration Hydromorphone HCl 0.5 mg 09/26/24 10:30 Hydromorphone Hcl Inj (*Crx) 1 Mg/Ml Syr IV PUSH Q4H PRN Pain Rated 7-10 Multivitamins/Calcium 1 tablet 09/27/24 09:00 09/27/24 08:35 Therapeutic Multivitamins/Minerals Tab (*Bkc) PO 1 tablet DAILY JONAH Administration Ondansetron HCl 4 mg 09/26/24 10:30 Ondansetron Inj 4 Mg/2 Ml Vial IV PUSH Q4H PRN Nausea Oxybutynin Chloride 5 mg 09/26/24 17:00 09/27/24 08:35 Oxybutynin Chloride 5 Mg Tablet PO 5 mg BID JONAH Administration Trazodone HCl 100 mg 09/26/24 21:00 09/26/24 21:01 Trazodone Hcl 50 Mg Tablet PO 100 mg HS JONAH Administration Triamcinolone Acetonide 1 applic 09/26/24 21:00 09/26/24 21:14 Triamcinolone Acet 0.1% Cream 15 Gm Tube TOPICAL 1 applic Q12HR JONAH Administration Radiology Results: ITS Impressions Abdomen/Pelvis CT 09/26/24 08:18 IMPRESSION: 1. Small sliding hiatal hernia. Upper Quadrant Ultrasound 09/26/24 10:08 IMPRESSION: 1. No etiology for abnormal liver function tests. Labs Labs: Laboratory Results - last 24 hr 09/26/24 09/26/24 09/27/24 07:18 16:57 06:03 WBC 19.9 H 14.6 H RBC 3.29 L 3.22 L Hgb 9.9 L 9.7 L Hct 29.4 L 29.0 L MCV 89.4 90.1 MCH 30.1 30.1 MCHC 33.7 33.4 RDW 14.8 H 15.0 H Plt Count 327 317 MPV 10.3 10.9 H Immature Gran % (Auto) 0.7 H 0.7 H Neut % (Auto) 87.2 H 82.2 H Lymph % (Auto) 6.8 L 8.4 L [place] % (Auto) 4.5 5.2 Eos % (Auto) 0.3 3.1 Baso % (Auto) 0.5 0.4 Lymph # (Auto) 1.34 1.23 [place] # (Auto) 0.9 H 0.8 H Eos # (Auto) 0.1 0.5 H Baso # (Auto) 0.1 0.1 Abs Immat Gran (auto) 0.13 H 0.10 H Absolute Neuts (auto) 17.3 H 12.0 H Absolute Nucleated RBC 0.000 0.000 Nucleated RBC % 0.0 0.0 Sodium 135 L 138 Potassium 3.4 3.3 L Chloride 100 103 Carbon Dioxide 30 27 Anion Gap 5 8 BUN 28 H 28 H Creatinine 0.87 0.93 Estim Creat Clear Calc 56 53 Estimated GFR > 60 59 Glucose 113 H 92 Calcium 8.2 L 8.2 L Total Bilirubin 0.7 AST 90 H ALT 91 H Alkaline Phosphatase 159 H C-Reactive Protein 21.4 H 22.6 H Total Protein 5.0 L Albumin 2.6 L Triglycerides 58 Cholesterol 62 LDL Cholesterol Direct < 30 HDL Direct 23 TSH (Reflex) 0.494
[2024-09-27] MEDS: TRIAMCINOLONE ACET 0.1% CREAM 15 GM TUBE 1 APPLIC TOPICAL ×2 (12:28→20:19)
[2024-09-27 15:14] VITALS: BP 135/70; PULSE 69; RESP 18; TEMP 36.2; O2SAT 95
[2024-09-27] MEDS: GABAPENTIN 300 MG CAPSULE PO (20:15)
[2024-09-27] MEDS: traZODone HCL 50 MG TABLET 100 MG PO (20:16)
[2024-09-27 21:57] VITALS: BP 104/53; PULSE 71; RESP 16; TEMP 36.1; O2SAT 94
[2024-09-28 06:00] VITALS: BP 112/56; PULSE 94; RESP 16; TEMP 36.3; O2SAT 93
[2024-09-28] MEDS: oxyBUTYnin CHLORIDE 5 MG TABLET PO (08:46)
[2024-09-28] MEDS: THERAPEUTIC MULTIVITAMINS/MINERALS TAB (*BKC) 1 TABLET PO (08:46)
[2024-09-28] MEDS: busPIRone HCL 10 MG TABLET PO (08:46)
[2024-09-28] MEDS: buPROPion HCL XL (24 HR) 150 MG TABCR PO (08:46)
[2024-09-28] MEDS: TRIAMCINOLONE ACET 0.1% CREAM 15 GM TUBE 1 APPLIC TOPICAL (08:46)
[2024-09-28] MEDS: DICLOFENAC SOD 75 MG TABLET.EC PO (08:46)
[2024-09-28] MEDS: CLOPIDOGREL BISULFATE 75 MG TABLET PO (08:46)
--- NOTE | 2024-09-28 11:31 | PM.IMPN ---
Progress Note: A&P Assessment and Plan (1) Pancreatitis: Qualifiers: Acute pancreatitis complication: no infection or necrosis Chronicity: acute Pancreatitis type: unspecified pancreatitis type Qualified Code(s): K85.90 - Acute pancreatitis without necrosis or infection, unspecified Code(s): K85.90 - Acute pancreatitis without necrosis or infection, unspecified Status: Acute Assessment and Plan: - Lipase: 6763, trend - +transaminitis, see below - add CRP, TSH w/reflex, and lipid panel - CT abd/pelvis: 1. Small sliding hiatal hernia. - US RUQ: 1. No etiology for abnormal liver function tests. - IV fluids: 2L bolus -> 200 mL/hr - reviewed home medications, patient is on azathioprine for RA and Zetia/Atorvastatin for HLD. hold meds. - analgesics and antipyretics p.r.n. - GI consulted, notes reviewed: The patient's acute pancreatitis is mild, with transaminase levels showing significant improvement. Despite a negative initial abdominal ultrasound, I remain suspicious for biliary sludge or small stones that may have been missed. A repeat ultrasound has been ordered for next Sunday, September 29, through the Ambulatory department, to be performed after discharge. The patient will be advanced to a full liquid diet for lunch and a soft diet for dinner. If she tolerates these meals, she can be discharged tomorrow. Plan - Advance diet to full liquids now and soft mechanical for dinner - Keep IV fluids to minimum (50 cc/hr) -- Ultrasound rescheduled for Friday 09/29 (2) Transaminitis: Code(s): R74.01 - Elevation of levels of liver transaminase levels Status: Acute Assessment and Plan: - AST 188, ALT 143, Alk Phos 223- trend labs - ETOH use: Rare, last used in July - see workup above Plan Diet: NPO except ice chips GI Prophylaxis: Famotidine b.i.d. DVT Prophylaxis: SCDs Lines: Peripheral Code Status: Full code Subjective Date/time seen: 09/28/24 11:31 Interval history: 69 y/o F presents here with abdominal pain with PMH of rheumatoid arthritis, hyperlipidemia, fibromyalgia, and anxiety/depression. The patient presents here from home for further evaluation of abdominal pain. She reports she initially developed nausea and poor appetite approximately 2 weeks ago. Nausea and vomiting would occur shortly after eating. Then developed diffuse upper abdominal pain over the last week. The pain is diffuse/upper, radiation into her back with a band-like quality, initially intermittent and then became constant, aggravated by deep inspiration and postprandial, and alleviated by IV fluids. Also endorsing chills, body aches, and fatigue. She denies changes in stool color, diarrhea or new constipation (hx of chronic constipation), shortness of breath or new cough (baseline dry cough secondary to smoking). She has no known history of pancreatitis. She reports very rare ETOH use, last at [facility] time. Denies previous IV drug or personal/family hx of genetic abnormalities. Initial VS at presentation: HR 93, RR 16, 90/58, and 97% on RA. ED workup showed: WBC 20.1, hemoglobin 11.8, creatinine 1.21 and GFR 44 (no previous available for comparison), glucose 164, AST 188, ALT 143, alk-phos 223, lipase 6763. UA likely contaminated, will recollect. CT of the abdomen/pelvis showed a small sliding hiatal hernia. US of the upper right quadrant showed no etiology for patient's abnormal liver function tests. GI was consulted Pt is comfortable, pain is controlled. A repeat ultrasound has been ordered for September 29 (as an oupt) The patient will be advanced to a full liquid diet for lunch and a soft diet for dinner. If she tolerates meals ok- anticipate discharged tomorrow. Review of Systems Review of Systems: All systems reviewed & are unremarkable except as noted in HPI and below Exam Narrative: +murmur. no abdominal tenderness. Const: General: comfortable and no acute distress Other: , female, nontoxic appearance. Reclining in ED stretcher. HENMT: Face/Nose/Sinus: Normal nares present Mouth: Yes moist mucous membranes Other: Poor dentition throughout. Eyes: General: appearance normal, both eyes and all related structures Sclera: sclerae normal Pupils: Equal, round and reactive pupils present EOM: EOMs intact bilaterally Neck: Lymphatic: lymphadenopathy Other: Left sided, submandibular gland versus lymphadenopathy Resp: Effort & Inspection: normal respiratory effort Other: Bibasilar crackles Cardio: Rate: regular rate Rhythm: regular rhythm Other: +murmur, no rub or ectopy. GI: Other: Abdomen soft, nondistended, nontender. No hepatomegaly or splenomegaly appreciated. Skin: General skin exam: normal color and no rashes or lesions noted Wounds: no wounds Neuro: Cranial nerves: Yes Equal, round and reactive pupils present Speech: normal speech Motor exam (neuro): 5/5 motor strength present throughout Sensory Exam: normal sensation Other: A&O x4 Extrem: General: normal to inspection Psych: Mental Status: mental status grossly normal Affect: normal affect Other: Fair insight and judgment, pleasant Objective Data Vital Signs Vital Signs: Vital Signs - 24 hr 09/27/24 15:14 09/27/24 20:00 09/27/24 21:57 Temperature 97.1 F L 97.0 F L Pulse Rate 69 71 Respiratory Rate 18 16 Blood Pressure 135/70 104/53 L Pulse Oximetry 95 94 Oxygen Delivery Room Air 09/28/24 06:00 09/28/24 08:00 Temperature 97.4 F L Pulse Rate 94 Respiratory Rate 16 Blood Pressure 112/56 L Pulse Oximetry 93 Oxygen Delivery Room Air Intake/Output Intake/Output: Intake & Output 09/25/24 09/26/24 09/27/24 09/28/24 23:59 23:59 23:59 23:59 Intake Total 3000 1120 240 Balance 3000 1120 240 Meds/Results Medications: Active Medications Generic Name Dose Route Start Last Admin Trade Name Freq PRN Reason Stop Dose Admin Acetaminophen 650 mg 09/26/24 10:30 Acetaminophen 325 Mg Tablet PO Q4H PRN Mild Pain (1-3) or Fever Hydrocodone Bitart/Acetaminophen 1 tab 09/26/24 13:08 09/27/24 20:16 Hydrocodone/Acetaminophen (*Crx) 5-325 Mg Tablet PO 1 tab Q4H PRN Administration Pain Rated 4-6 Bupropion HCl 150 mg 09/27/24 09:00 09/28/24 08:46 Bupropion Hcl Xl (24 Hr) 150 Mg Tabcr PO 150 mg DAILY JONAH Administration Buspirone HCl 10 mg 09/26/24 21:00 09/28/24 08:46 Buspirone Hcl 10 Mg Tablet PO 10 mg Q12HR JONAH Administration Clopidogrel Bisulfate 75 mg 09/27/24 09:00 09/28/24 08:46 Clopidogrel Bisulfate 75 Mg Tablet PO 75 mg DAILY JONAH Administration Diclofenac Sodium 75 mg 09/26/24 21:00 09/28/24 08:46 Diclofenac Sod 75 Mg Tablet.Ec PO 75 mg Q12HR JONAH Administration Gabapentin 300 mg 09/26/24 21:00 09/27/24 20:15 Gabapentin 300 Mg Capsule PO 300 mg HS JONAH Administration Hydromorphone HCl 0.5 mg 09/26/24 10:30 Hydromorphone Hcl Inj (*Crx) 1 Mg/Ml Syr IV PUSH Q4H PRN Pain Rated 7-10 Multivitamins/Calcium 1 tablet 09/27/24 09:00 09/28/24 08:46 Therapeutic Multivitamins/Minerals Tab (*Bkc) PO 1 tablet DAILY JONAH Administration Ondansetron HCl 4 mg 09/26/24 10:30 Ondansetron Inj 4 Mg/2 Ml Vial IV PUSH Q4H PRN Nausea Oxybutynin Chloride 5 mg 09/26/24 17:00 09/28/24 08:46 Oxybutynin Chloride 5 Mg Tablet PO 5 mg BID JONAH Administration Trazodone HCl 100 mg 09/26/24 21:00 09/27/24 20:16 Trazodone Hcl 50 Mg Tablet PO 100 mg HS JONAH Administration Triamcinolone Acetonide 1 applic 09/26/24 21:00 09/28/24 08:46 Triamcinolone Acet 0.1% Cream 15 Gm Tube TOPICAL 1 applic Q12HR JONAH Administration Radiology Results: ITS Impressions Abdomen/Pelvis CT 09/26/24 08:18 IMPRESSION: 1. Small sliding hiatal hernia. Upper Quadrant Ultrasound 09/26/24 10:08 IMPRESSION: 1. No etiology for abnormal liver function tests. Quality VTE Prophylaxis VTE prophylaxis: mechanical ordered
[2024-09-28 11:48] LABS: Hematocrit 30.5 % (37.0-47.0); Hemoglobin 10.3 g/dL (12.0-15.0); Mean Corpuscular HGB Conc 33.8 g/dl (32-36); Mean Corpuscular Hemoglobin 30.2 pg (26-34); Mean Corpuscular Volume 89.4 fl (80-100); Platelet Count Result 356 k/mm3 (150-375); Red Blood Count 3.41 M/mm3 (4.2-5.4); Red Cell Distribution Width 15.2 % (11.5-14.5); White Blood Count 9.4 K/mm3 (4.5-10.0)
[2024-09-28 12:01] LABS: Anion Gap 6 mmol/L (4-12); Blood Urea Nitrogen 18 mg/dL (7-17); Calcium 8.5 mg/dL (8.4-10.2); Carbon Dioxide 31 mmol/L (22-30); Chloride 103 mmol/L (98-107); Estimated CRCL calculation 59 ml/min; Estimated Glomerular Filt Rate > 60; Glucose 166 mg/dL (65-110); Potassium 3.5 mmol/L (3.4-5.0); Sodium 140 mmol/L (137-145)
--- NOTE | 2024-09-28 12:25 | WPDGIPROGNO ---
Progress Note: A&P Assessment and Plan (1) Pancreatitis: Qualifiers: Acute pancreatitis complication: no infection or necrosis Chronicity: acute Pancreatitis type: unspecified pancreatitis type Qualified Code(s): K85.90 - Acute pancreatitis without necrosis or infection, unspecified Code(s): K85.90 - Acute pancreatitis without necrosis or infection, unspecified Status: Acute Assessment and Plan: The patient can be discharged home on on a low-fat, no red meat diet. Ultrasound order put for tomorrow specifically to rule out sludge that could have missed in the 1st ultrasound at arrival. We will follow ultrasound results. Plan - Discharge home today - Ultrasound tomorrow (pt told to show up NPO around 8 am) Subjective Date/time seen: 09/28/24 12:25 Interval history: the patient is asymptomatic and tolerated a complete diet last night. No fever, nausea, vomiting. Exam Narrative: Abdomen: Unchanged from yesterday. Rest of the exam completely normal. Objective Data Vital Signs Vital Signs: Vital Signs - 24 hr 09/27/24 15:14 09/27/24 20:00 09/27/24 21:57 Temperature 97.1 F L 97.0 F L Pulse Rate 69 71 Respiratory Rate 18 16 Blood Pressure 135/70 104/53 L Pulse Oximetry 95 94 Oxygen Delivery Room Air 09/28/24 06:00 09/28/24 08:00 Temperature 97.4 F L Pulse Rate 94 Respiratory Rate 16 Blood Pressure 112/56 L Pulse Oximetry 93 Oxygen Delivery Room Air Intake/Output Intake/Output: Intake & Output 09/25/24 09/26/24 09/27/24 09/28/24 23:59 23:59 23:59 23:59 Intake Total 3000 1120 240 Balance 3000 1120 240 Meds/Results Medications: Active Medications Generic Name Dose Route Start Last Admin Trade Name Freq PRN Reason Stop Dose Admin Acetaminophen 650 mg 09/26/24 10:30 Acetaminophen 325 Mg Tablet PO Q4H PRN Mild Pain (1-3) or Fever Hydrocodone Bitart/Acetaminophen 1 tab 09/26/24 13:08 09/27/24 20:16 Hydrocodone/Acetaminophen (*Crx) 5-325 Mg Tablet PO 1 tab Q4H PRN Administration Pain Rated 4-6 Bupropion HCl 150 mg 09/27/24 09:00 09/28/24 08:46 Bupropion Hcl Xl (24 Hr) 150 Mg Tabcr PO 150 mg DAILY JONAH Administration Buspirone HCl 10 mg 09/26/24 21:00 09/28/24 08:46 Buspirone Hcl 10 Mg Tablet PO 10 mg Q12HR JONAH Administration Clopidogrel Bisulfate 75 mg 09/27/24 09:00 09/28/24 08:46 Clopidogrel Bisulfate 75 Mg Tablet PO 75 mg DAILY JONAH Administration Diclofenac Sodium 75 mg 09/26/24 21:00 09/28/24 08:46 Diclofenac Sod 75 Mg Tablet.Ec PO 75 mg Q12HR JONAH Administration Gabapentin 300 mg 09/26/24 21:00 09/27/24 20:15 Gabapentin 300 Mg Capsule PO 300 mg HS JONAH Administration Hydromorphone HCl 0.5 mg 09/26/24 10:30 Hydromorphone Hcl Inj (*Crx) 1 Mg/Ml Syr IV PUSH Q4H PRN Pain Rated 7-10 Multivitamins/Calcium 1 tablet 09/27/24 09:00 09/28/24 08:46 Therapeutic Multivitamins/Minerals Tab (*Bkc) PO 1 tablet DAILY JONAH Administration Ondansetron HCl 4 mg 09/26/24 10:30 Ondansetron Inj 4 Mg/2 Ml Vial IV PUSH Q4H PRN Nausea Oxybutynin Chloride 5 mg 09/26/24 17:00 09/28/24 08:46 Oxybutynin Chloride 5 Mg Tablet PO 5 mg BID JONAH Administration Trazodone HCl 100 mg 09/26/24 21:00 09/27/24 20:16 Trazodone Hcl 50 Mg Tablet PO 100 mg HS JONAH Administration Triamcinolone Acetonide 1 applic 09/26/24 21:00 09/28/24 08:46 Triamcinolone Acet 0.1% Cream 15 Gm Tube TOPICAL 1 applic Q12HR JONAH Administration Radiology Results: ITS Impressions Abdomen/Pelvis CT 09/26/24 08:18 IMPRESSION: 1. Small sliding hiatal hernia. Upper Quadrant Ultrasound 09/26/24 10:08 IMPRESSION: 1. No etiology for abnormal liver function tests. Labs Labs: Laboratory Results - last 24 hr 09/28/24 11:42 WBC 9.4 RBC 3.41 L Hgb 10.3 L Hct 30.5 L MCV 89.4 MCH 30.2 MCHC 33.8 RDW 15.2 H Plt Count 356 MPV 11.0 H Sodium 140 Potassium 3.5 Chloride 103 Carbon Dioxide 31 H Anion Gap 6 BUN 18 H D Creatinine 0.83 Estim Creat Clear Calc 59 Estimated GFR > 60 Glucose 166 H Calcium 8.5
--- NOTE | 2024-09-28 13:52 | P.DS_ITS ---
DS: Admitting Diagnosis Discharge Date 09/28 Admitting Diagnosis abd pain DS: Discharge Diagnosis Discharge Diagnosis (1) Pancreatitis: Qualifiers: Acute pancreatitis complication: no infection or necrosis Chronicity: acute Pancreatitis type: unspecified pancreatitis type Qualified Code(s): K85.90 - Acute pancreatitis without necrosis or infection, unspecified Code(s): K85.90 - Acute pancreatitis without necrosis or infection, unspecified Status: Acute (2) Transaminitis: Code(s): R74.01 - Elevation of levels of liver transaminase levels Status: Acute DS: Summary Hospital Course Hospital Course: 69 y/o F presents here with abdominal pain with PMH of rheumatoid arthritis, hyperlipidemia, fibromyalgia, and anxiety/depression. The patient presents here from home for further evaluation of abdominal pain. She reports she initially developed nausea and poor appetite approximately 2 weeks ago. Nausea and vomiting would occur shortly after eating. Then developed diffuse upper abdominal pain over the last week. The pain is diffuse/upper, radiation into her back with a band-like quality, initially intermittent and then became constant, aggravated by deep inspiration and postprandial, and allev iated by IV fluids. Also endorsing chills, body aches, and fatigue. She denies changes in stool color, diarrhea or new constipation (hx of chronic constipation), shortness of breath or new cough (baseline dry cough secondary to smoking). She has no known history of pancreatitis. She reports very rare ETOH use, last at [place] time. Denies previous IV drug or personal/family hx of genetic abnormalities. GI was following. Ultrasound was supposed ot be done in am tomorrow but she wnats to leave. OK with GI: The patient can be discharged home on on a low-fat, no red meat diet. Ultrasound order put for tomorrow specifically to rule out sludge that could have missed in the 1st ultrasound at arrival. We will follow ultrasound results. - Discharge home today - Ultrasound tomorrow (pt told to show up NPO around 8 am) Time Spent with Patient Time attestation: Total time spent providing and/or coordinating discharge services: Exam Narrative: +murmur. no abdominal tenderness. Const: General: comfortable and no acute distress Other: , female, nontoxic appearance. Reclining in ED stretcher. HENMT: Face/Nose/Sinus: Normal nares present Mouth: Yes moist mucous membranes Other: Poor dentition throughout. Eyes: General: appearance normal, both eyes and all related structures Sclera: sclerae normal Pupils: Equal, round and reactive pupils present EOM: EOMs intact bilaterally Neck: Lymphatic: lymphadenopathy Other: Left sided, submandibular gland versus lymphadenopathy Resp: Effort & Inspection: normal respiratory effort Other: Bibasilar crackles Cardio: Rate: regular rate Rhythm: regular rhythm Other: +murmur, no rub or ectopy. GI: Other: Abdomen soft, nondistended, nontender. No hepatomegaly or splenomegaly appreciated. Skin: General skin exam: normal color and no rashes or lesions noted Wounds: no wounds Neuro: Cranial nerves: Yes Equal, round and reactive pupils present Speech: normal speech Motor exam (neuro): 5/5 motor strength present throughout Sensory Exam: normal sensation Other: A&O x4 Extrem: General: normal to inspection Psych: Mental Status: mental status grossly normal Affect: normal affect Other: Fair insight and judgment, pleasant DS: Data Data Completed and Pending Labs on day of discharge: Labs from last 24 hours 09/28/24 11:42 WBC 9.4 RBC 3.41 L Hgb 10.3 L Hct 30.5 L MCV 89.4 MCH 30.2 MCHC 33.8 RDW 15.2 H Plt Count 356 MPV 11.0 H Sodium 140 Potassium 3.5 Chloride 103 Carbon Dioxide 31 H Anion Gap 6 BUN 18 H D Creatinine 0.83 Estim Creat Clear Calc 59 Estimated GFR > 60 Glucose 166 H Calcium 8.5 Discharge Plan Discharge Attending physician on discharge: Aung Paredes Discharging Clinician: Ailyn Ivy Patient Disposition: Home, Self-Care Activity: may shower Diet: other - see discharge instructions Discharge Instructions: Please follow GI instructions: low-fat, no red meat diet. Ultrasound order put for tomorrow specifically to rule out sludge that could have missed in the 1st ultrasound at arrival. GI will follow ultrasound results. - Ultrasound tomorrow -09/29-please show up NPO around 8 am) Patient Instructions: Antibiotic Form Patient Language: Ivorian Stand Alone Forms: General Discharge Information Follow-up/Referrals: Cristopher Vargas MD [Physician] - 1 Week Jorge Sweeney MD [Primary Care Provider] - 2 Weeks Discharge Medications: Continued gabapentin 300 mg (9)- 600 mg (24) tablet, Ext Rel 24hr dose pack 2 ea PO .hs tizanidine 2 mg capsule 2 mg PO QHS azathioprine 50 mg tablet 50 mg PO BID oxybutynin chloride 5 mg tablet 5 mg PO BID Qty: 180 3RF pantoprazole 40 mg tablet,delayed release (DR/EC) 40 mg PO QAM diclofenac sodium 75 mg tablet,delayed release (DR/EC) 75 mg PO BID ondansetron 8 mg tablet,disintegrating 8 mg PO Q8H PRN (Reason: nausea and vomiting) Qty: 30 0RF buspirone 10 mg tablet See Rx Instructions .ROUTE .COMPLEX Qty: 180 3RF Dose Instruction: TAKE 1 TABLET TWICE DAILY Rx Instructions: TAKE 1 TABLET TWICE DAILY trazodone 100 mg tablet See Rx Instructions .ROUTE .COMPLEX Qty: 90 3RF Dose Instruction: TAKE 1 TABLET AT BEDTIME Rx Instructions: TAKE 1 TABLET AT BEDTIME ezetimibe 10 mg tablet 10 mg PO DAILY Qty: 90 3RF rosuvastatin 40 mg tablet 40 mg PO DAILY Qty: 90 3RF triamcinolone acetonide 0.1 % cream See Rx Instructions .ROUTE .COMPLEX Qty: 30 0RF Dose Instruction: APPLY TOPICALLY TWICE A DAY TO RIGHT FOREARM UP TO TWO WEEKS Rx Instructions: APPLY TOPICALLY TWICE A DAY TO RIGHT FOREARM UP TO TWO WEEKS clopidogrel 75 mg tablet 75 mg PO DAILY bupropion HCl 150 mg tablet extended release 24 hr 150 mg PO DAILY Women's Multivitamin 18 mg-400 mcg- 500 mg-50 mcg Tablet 1 tablet PO DAILY acetaminophen 325 mg Tablet 650 mg PO Q6H PRN (Reason: Pain) Date of admission: 09/26/24 10:30 Primary Care Provider: Jorge Sweeney Admitting Provider: Castillo Massey Attending physician on admission: Castillo Massey Condition: Stable Quality VTE Prophylaxis VTE prophylaxis: mechanical ordered Hospitalist MIPS Heart Failure (Exclusion) Patient has history of Heart Transplant or Left Ventricular Assistive Device?: No IF YES, STOP HERE Heart Failure (Qualifier) Patient has current or prior documentation of LVEF less than or equal to 40%, or mod/servere depressed LVSF?: No IF NO, STOP HERE
== END 2024-09-28 14:55 | disposition home or self-care (01) | DRG 440 ==
LOC: ANHED 10:43 → ANH3MEDSUR 16:10
PROVIDERS: Student in an Organized Health Care Education/Training Program; Admitting Provider Internal Medicine; Emergency Provider Family Medicine; PCP Family Medicine Adolescent Medicine; Visit Provider Nurse Practitioner
DX: K85.90 Acute pancreatitis without necrosis or infection, unspecified (principal); R74.01 Elevation of levels of liver transaminase levels; M06.9 Rheumatoid arthritis, unspecified; E78.5 Hyperlipidemia, unspecified; M79.7 Fibromyalgia; F41.8 Other specified anxiety disorders; Z87.891 Personal history of nicotine dependence
CPT/HCPCS: 36415; 74177; 76705; 80048; 80053; 80061; 81001; 83605; 83690; 84443; 85025; 85027; 86140; 96361; 96374; 96375; 96376; 99285; A9270; J2405; J7030; J7120; Q9967

== ENCOUNTER 2024-09-29 08:57 | Outpatient (CLI) | payer MEDICARE, OTHER, SELFPAY ==
--- NOTE | ~2024-09-29 | US_ITS ---
EXAMINATION: US abdomen limited DATE: 09/29/2024 10:04 INDICATION: Nausea and vomiting. TECHNIQUE: Multiple grayscale and Doppler ultrasound images of the abdomen were obtained. COMPARISON: Ultrasound 09/26/2024, CT abdomen and pelvis 09/26/2024 FINDINGS: The visualized portions of the head and body of the pancreas are normal. The liver is nydia l without focal lesion. There is normal flow in main portal vein. The gallbladder is contracted. No g allstones or sonographic Young sign. The common duct is normal and measures 3 mm. IMPRESSION: 1. Normal right upper quadrant ultrasound. Reviewed, dictated and finalized at location A. S TECHNICIAN HOME THEATER
--- OUTSIDE RECORDS SUMMARY | 2024-09-29 11:41 | XMS_ITS | Patient Health Summary ---
Author Organization [facility] Address [address] [place] [address] Care Team Providers Care Heating Equipment Installer Name Role Phone Jorge Sweeney MD Primary Care Provider + Note from [facility],non-owned Affiliates and Associated Physician Practices is amultiple site organization consisting of ambulatory clinics and hospital sitesin [place], [place], [place] and [place]. This disclosure is being madepursuant to the Care Everywhere program and may not contain all information available regarding this patient. Last updated 18.[facility] Allergies * Aspirin(Rash) -Low Criticality * Hmg-Coa-R [...] by mouth once daily * Probiotic Product (BioAxone Therapeutic PO) Take by mouth once daily * [...] MD on 06/11/2024 4:14 PM Tracie Ponce BUILDING SPECIALIST-REPORT ANALYST DIAGNOSTIC IMAG ING ORDERABLES * (ABNORMAL) CBC [...] 7:54 PM CDT Narrative Resulting Agency Comment [facility] [address] [place] [id number] Kanu Bustos MD LAB - HEMATOLOGY ORD [...] 7:54 PM CDT Narrative Resulting Agency Comment [facility] [address] [place] [id number] Kanu Bustos MD LAB - CHEMISTRY CA [facility] Organization Address City/State/ZIP Co de [...] see injection note Kanu Bustos MD Office [phone] Call Directly [phone] Kanu Bustos MD US ORDERABLES * CYCLIC CITRUL PEPTIDE ANTIBODY IGG/IGA (CCP) (04/12/2015 4:19 PM CDT) CCP Antibodies IgG/IgA 2 0 - 19 units [facility] ACCOUNT BILL Comment: Negative <20 Weak positive 20 - 39 Moderate positive 40 - 59 Strong positive >59 BLOOD SPECIMEN / Unknown 04/12/2015 4:19 PM CDT 04/12/2015 7:41 PM CDT Narrative Resulting Agency Comment [facility] [address] [id number] Kanu Bustos MD LAB - SEROLOGY ORDER SONIA [facility] ACCOUNT BILL * W REFLX (POSITIVE) (PO REF LAB) (04/12/2015 4:19 PM CDT) Direct Negative Negative [facility] ACCOUNT BILL Blood specimen (specimen) BLOOD SPECIMEN / Unknown 04/12/2015 4:19 PM CDT 04/12/2015 7:41 PM CDT Narrative Resulting Agency Comment [facility] [address] [id number] Kanu Bustos MD LAB - SEROLOGY ORDER SONIA [facility] ACCOUNT BILL * (ABNORMAL) C-REACTIVE PROTEIN (04/12/2015 4:19 PM CDT) C-Reactive Protein 0.37(H) <0.30 mg/dL [facility] ACCOUNT BILL Blood specimen (specimen) BLOOD SPECIMEN / Unknown 04/12/2015 4:19 PM CDT 04/12/2015 7:41 PM CDT Narrative Resulting Agency Comment [facility] [address] [place] [phone] Kanu Bustos MD LAB - CHEMISTRY CA RESENDIZ [facility] ACCOUNT BILL * SED RATE WESTERGREN (04/12/2015 4:19 PM CDT) Erythrocyte Sedimentation Rate Westergren 23 0 - 30 mm/hr [facility] ACCOUNT BILL Blood specimen (specimen) BLOOD SPECIMEN / Unknown 04/12/2015 4:19 PM CDT 04/12/2015 7:41 PM CDT Narrative Resulting Agency Comment [facility] [address] [place] [phone] Kanu Bustos MD LAB - HEMATOLOGY ORD ERABLES [facility] ACCOUNT BILL Care Teams Heating Equipment Installer Relationship Specialty Start Date End Date Jorge Sweeney MD [address] [address] PCP - General Family Medicine 03/01/15
--- OUTSIDE RECORDS SUMMARY | 2024-09-29 11:41 | XMS_ITS | Continuity of Care Document ---
Author Organization [facility]. If a dditional information is needed, contact Health Information Management at [phone] Address [address] [place] [address] Phone Care Team Providers Care Tank Setter Name Role Phone Unavailable Unavailable Unavailable Unavailable Unavailable Unavailable Unavailable Unavailable Unavailable Unavailable Unavailable Unavailable Problems Injury of face Onset:01-Feb-2024 Zak Gorman MD Fall Onset:01-Feb-2024 Zak Gorman MD Medications acetaminophen 325 MG / HYDROcodone bitartrate 5 MG Oral Tablet [Reinbeck];1 TAB X1ED Quantity:1 Zak Gorman MD Start:14-Tsh-0666Ozy:2023 Comments:[id number] Administration Instructions:If a pain scale for use is not indicated, than the presumedpain scale indication is 4-6 (MODERATE) Procedures CT C-SPINE W/O CONTRASTResult:[facility] Name: BEVERLEY MAZARIEGOS [facility] Phys: [place] [address] : 1955 Age: 69 Sex: F Acct: [id number] Loc: K.ERLJ PHONE #: [phone] Exam Date: 02/01/2024 Status: REG ER FAX #: Radiology No: Unit No: [id number] EXAMS: [id number] CT C- SPINE W/O IV CONTRAST INDICATION: [...] LEONARDA HEMPHILL MD CC: Dictated Date/Time: 02/01/2024 (9381)Technologist: ASHLIE MEDELLIN Transcribed Date/Time: 02/01/2024 (3614)Roller Bearing Inspector: CRISTO Electronic Signature Date/Time: 02/01/2024 (6676)Orig Print D/T: S: 02/01/2024 (2569) PAGE 1 Signed Report Date:01-Feb-2024 Status:Completed CT SINUS/FACE W/O CONTRASTResult:[facility] Name: BEVERLEY MAZARIEGOS [address] [place] [address] Phys: [place] [address] : 1955 Age: 69 Sex: F Acct: [id number] Loc: K.ERLJ PHONE #: [phone] Exam Date: 02/01/2024 Status: REG ER FAX #: Radiology No: Unit No: [id number] EXAMS: [id number] CT MAXFACE W/O CONTRAST INDICATION: FX - [...] LEONARDA HEMPHILL MD CC: Dictated Date/Time: 02/01/2024 (3027)Technologist: ASHLIE MEDELLIN Transcribed Date/Time: 02/01/2024 (140)Roller Bearing Inspector: CRISTO Electronic Signature Date/Time: 02/01/2024 (1407)Orig Print D/T: S: 02/01/2024 (5250) PAGE 1 Signed Report Date:01-Feb-2024 Status:Completed CT HD/BRAIN W/O CONTResult:[facility] Name: BEVERLEY MAZARIEGOS [address] [place] [address] Phys: [place] [address] : 1955 Age: 69 Sex: F Acct: [id number] Loc: LexERLJ PHONE #: [phone] Exam Date: 02/01/2024 Status: REG ER FAX #: Radiology No: Unit No: [id number] EXAMS: [id number] CT HD/BRAIN W/O CONT INDICATION: HI - [...] 02/01/2024 (140)Technologist: ASHLIE MEDELLIN Transcribed Date/Time: 02/01/2024 (1400)Roller Bearing Inspector: CRISTO Electronic Signature Date/Time: 02/01/2024 (1400)Orig Print D/T: S: 02/01/2024 (1402) PAGE 1 Signed Report Date:01-Feb-2024 Status:Completed XR KNEE 4+ VIEWS LEFTResult:[facility] Name: BEVERLEY MAZARIEGOS [address] [place] [address] Phys: [place] [address] : 1955 Age: 69 Sex: F Acct: [id number] Loc: KMiloERLJ PHONE #: [phone] Exam Date: 02/01/2024 Status: REG ER FAX #: Radiology No: Unit No: [id number] EXAMS: [id number] XR KNEE 4+ VIEWS LEFT INDICATION: FX [...] LEONARDA HEMPHILL MD CC: Dictated Date/Time: 02/01/2024 (1521)Technologist: ASHLIE MEDELLIN Transcribed Date/Time: 02/01/2024 (6070)Roller Bearing Inspector: CRISTO Electronic Signature Date/Time: 02/01/2024 (5535)Orig Print D/T: S: 02/01/2024 (3680) PAGE 1 Signed Report Date:01-Feb-2024 Status:Completed XR WRIST 3 VIEW BIResult:[facility] Name: BEVERLEY MAZARIEGOS [address] [place] [address] Phys: [place] [address] : 1955 Age: 69 Sex: F Acct: [id number] Loc: K.ERLJ PHONE #: [phone] Exam Date: 02/01/2024 Status: REG ER FAX #: Radiology No: Unit No: [id number] EXAMS: [id number] XR WRIST 3 VIEW BI INDICATION: FX - FRACTURE; FALL/HEAD INJURY EXAMINATION/TECHNIQUE: X-RAY - BILATERAL XR Wrists Bilateral Min 3 Views Ea - 15058 8 VIEWS COMPARISON: None. FINDINGS: No fractures or dislocations demonstrated. There are are mild osteoarthritic changes demonstrated . IMPRESSION: No acute osseous abnormalities at 1352 Reported and signed by: LEONARDA HEMPHILL MD CC: Dictated Date/Time: 02/01/2024 (2445)Technologist: ASHLIE MEDELLIN Transcribed Date/Time: 02/01/2024 (2954)Roller Bearing Inspector: CRISTO Electronic Signature Date/Time: 02/01/2024 (5673)Orig Print D/T: S: 02/01/2024 (2262) PAGE 1 Signed Report Date:01-Feb-2024 Status:Completed Social History Smoking Status Tobacco smoking consumption unknown Recorded: Vital Signs 01-Feb-2024 12:22 TEMP UTUOGATAGI35.3f Comments:98 .3 Pulse76 Comments:76 Respiratory Rate17 Comments:17 O2 SAT96% Comments:96 BP Ruismmxd295uv[Hg] Comments:14 5 BP Ivbyfopaf33yb[Hg] Comments:79 Height5.5[ft_us] Comments:5 Dejhln01.909kg Comments:90.909 01-Feb-2024 12:22 BMI32.3kg/m2 Comments:32.3 Encounters Emergency Encounter Reason:FALL/HEAD INJURY Encounter Diagnosis:Encounter for immunization,Fall on same level from slipping, tripping and stumbling with subsequent striking against unspecified object, initial encounter,Sidewalk as the place of occurrence of the external cause,Unspecified injury of face, initial encounter 01-Feb-2024 11:84Sm62-Dki-2151 14:51 [facility] Discharge Disposition:Discharged to home or self care (routine discharge) Zak Gorman MD-01-Feb-2024 [facility] ([facility])EMERGENCY PROVIDER REPORTREPORT#:[id number] REPORT STATUS: SignedDATE:02/01/24 TIME: 1157PATIENT: BEVERLEY MAZARIEGOS UNIT #: [id number]#: [id number] ROOM/BED:AGE: 69 SEX: F PCP PHYS: Undefined ProviderSERVICE AUTHOR: Sherif Crespo MD* ALL edits or amendments must be made on the electronic/computer document *HPI-Trauma Minor/FallFree Text HPI NotesFree Text HPI Wudke34-nsve-oyh female presents via EMS after ground level [...] tenderness, Intoxicated, Altered LOC/alertness, Focal neuro deficit pres.[place] Coma Score: Copyright Sir Clinton López Copyright [...] treatmentPatient Instructions Deep Skin Avulsion, Facial Laceration, Reju-yn-Yauk, HeadInjury, Adult, Nonsutured Laceration Care, Understanding Your [...] Treated for EMC? Yes at 1929RPT #: [id number] OF REPORT Plan of Treatment Please follow [...]
--- OUTSIDE RECORDS SUMMARY | 2024-09-29 11:41 | XMS_ITS | Clinical Summary ---
Author Organization [facility] Address [address] [place] [address] Care Team Providers Care Cluster Bore Operator Name Role Phone Jorge Sweeney MD Primary Care Provider + Source Comments [facility],non-owned Affiliates and Associated Physician Practices is amultiple site organization consisting of ambulatory clinics and hospital sitesin [place], [place], [place] and [place]. This disclosure is being madepursuant to the Care Everywhere program and may not contain all information available regarding this patient. Last updated 18.[facility] Allergies Active Allergy Reactions Criticality Noted Date [...] by mouth once daily Active Probiotic Product ([employer] HEALTH PO) Take by mouth once daily [...] age to complete this topic Care Teams Cluster Bore Operator Relationship Specialty Start Date End Date Jorge Sweeney MD [address] [facility] [address] [place] [address] PCP - General Family Medicine 03/01/15
--- OUTSIDE RECORDS SUMMARY | 2024-09-29 11:41 | XMS_ITS | Clinical Summary ---
Author Organization [facility] Address [address] [place] [address] Care Team Providers Care Floor Covering Layer Name Role Phone Jorge Sweeney MD Primary [...] (06/28/2020): Added automatically from request for surgery [id number] Encounters Date Type Department Care Team Description 09/18/2024 1:34 PM DIE CUTTING MACHINE OPERATOR - 09/18/2024 11:59 PM [facility] Hospital Encounter [facility] Imaging and Radiology [address] [place] [phone] Screening mammogram, encounter for Discharge Disposition: Discharge to home or self care 09/18/2024 1:30 PM DIE CUTTING MACHINE OPERATOR - 09/18/2024 11:59 PM [facility] Hospital Encounter [facility] Imaging and Radiiology [address] [place] [phone] Other specified disorders of bone density and structure, unspecified site Discharge Disposition: Discharge to home or self care 09/18/2024 11:00 AM DIE CUTTING MACHINE OPERATOR - 09/18/2024 11:59 PM [facility] Hospital Encounter [facility] Vascular Lab [address] [place] [address] Other specified disorders of bone density and [...] on file Legal Sex Female 3:23 AM DIE CUTTING MACHINE OPERATOR Gender Identity Not on file Sexual [...] Comments Blood Pressure 130/72 07/24/2020 12:25 PM DIE CUTTING MACHINE OPERATOR Pulse 88 07/24/2020 1:00 PM DIE CUTTING MACHINE OPERATOR Temperature 36.7 C (98 F) 07/24/2020 4:00 AM DIE CUTTING MACHINE OPERATOR Respiratory Rate 16 07/24/2020 1:00 PM DIE CUTTING MACHINE OPERATOR Oxygen Saturation 98% 07/24/2020 1:00 PM DIE CUTTING MACHINE OPERATOR Inhaled Oxygen Concentration - - Weight 91.6 kg (202 lb) 07/23/2020 11:53 AM DIE CUTTING MACHINE OPERATOR Height 167.6 cm (5' 6 ) 07/23/2020 11:53 AM DIE CUTTING MACHINE OPERATOR Body Mass Index 32.6 07/23/2020 11:53 AM DIE CUTTING MACHINE OPERATOR Plan of Treatment Health Maintenance Due Date Last Done Comments Colon Cancer Screening-Colonoscopy 1955 Depression Screening 1955 Hepatitis C Screening 1955 DTaP/Tdap/Td Vaccine (1 - Tdap) 01/08/1964 Hepatitis B Screening 1971 Well Visit 65+ 2018 Pneumococcal vaccine 65+ (2 of 2 - PPSV23) 08/13/2019 06/18/2019 Zoster Vaccine (2 of 2) 09/26/2019 08/01/2019 Fall Risk Assessment 07/24/2021 07/24/2020 Influenza Vaccine (#1) 2024 06/18/2019, 2013 Breast Cancer Screening-Mammogram 09/18/2025 09/18/2024, 08/02/2022, 12/09/2020, Additional history exists Osteoporosis Screening-Bone Density Scan 09/18/2026 09/18/2024, 08/02/2022 Procedures Procedure Name Priority Date/Time Associated Diagnosis Comments DEXA AXIAL SKELETON BONE DENSITY 1 OR MORE SITES Schedule Routine, Read Routine (OP Routine) 09/18/2024 2:17 PM DIE CUTTING MACHINE OPERATOR Other specified disorders of bone density and structure, unspecified site SCREENING MAMMOGRAM BILATERAL W CHARAN Schedule Routine, Read Routine (OP Routine) 09/18/2024 1:56 PM DIE CUTTING MACHINE OPERATOR Screening mammogram, encounter for US CAROTIDS DUPLEX BILATERAL Schedule Routine, Read Routine (OP Routine) 09/18/2024 11:36 AM DIE CUTTING MACHINE OPERATOR Bilateral carotid artery stenosis from Last 3 Months Results * Dexa Axial Skeleton Bone Density 1 or 2 Site (09/18/2024 2:17 PM DIE CUTTING MACHINE OPERATOR) Anatomical Region Laterality Modality Body N/A Other 09/19/2024 8:29 AM DIE CUTTING MACHINE OPERATOR Impressions 09/19/2024 8:29 AM DIE CUTTING MACHINE OPERATOR Osteopenia. Consider follow-up bone densitometry evaluation in 2-3 years. Electronically signed by: Geraldo Martin M.D. Narrative 09/19/2024 8:29 AM DIE CUTTING MACHINE OPERATOR EXAMINATION: DEXA AXIAL SKELETON BONE DENSITY 1 OR MORE SITES DATE: 09/18/2024 1:30 PM HISTORY: 69 rpaiq-ulau-ccr postmenopausal woman; other specified disorders of bone [...] SITES DATE: 09/18/2024 1:30 PM HISTORY: 69 zlkii-aqua-pje postmenopausal woman; other specified disorders of bone [...] Mammogram Bilateral W Charan (09/18/2024 1:56 PM DIE CUTTING MACHINE OPERATOR) Anatomical Region Laterality Modality Breast Bilateral Mammography 09/18/2024 2:41 PM DIE CUTTING MACHINE OPERATOR Impressions 09/18/2024 2:41 PM DIE CUTTING MACHINE OPERATOR No evidence of malignancy in either breast. FINAL ASSESSMENT: BI-RADS Category 1: Negative. RECOMMENDATION: Recommend return for annual screening mammogram in 12 months. Electronically signed by: MD Tarny JOHNS 09/18/2024 2:41 PM DIE CUTTING MACHINE OPERATOR EXAMINATION: BILATERAL SCREENING MAMMOGRAM COMPARISON: All [...] US Carotids Duplex Bilateral (09/18/2024 11:36 AM DIE CUTTING MACHINE OPERATOR) Anatomical Region Laterality Modality Vascular Bilateral Ultrasound 09/18/2024 1:04 PM DIE CUTTING MACHINE OPERATOR Impressions 09/18/2024 1:04 PM DIE CUTTING MACHINE OPERATOR No sonographic evidence of hemodynamically significant [...] Geraldo Martin M.D. Narrative 09/18/2024 1:04 PM DIE CUTTING MACHINE OPERATOR EXAMINATION: US CAROTIDS DUPLEX BILATERAL DATE: [...] Geraldo Martin M.D. us Lucrecia Jenkins NP [facility] PROCEDURES Final Result from Last 3 Months Insurance MEDICARE [facility] MEDICARE [employer] [place] [employer] [place] [employer] MEDICARE PPO Advance Directives For more information, please contact: [phone] * Full Code (Latest Code Status on File) Date Activated Date Inactivated Comments 07/23/2020 5:38 PM 07/24/2020 9:05 PM Care Teams Floor Covering Layer Relationship Specialty Start Date End Date Jorge Sweeney MD [address] [place] [address] PCP - General 12/02/20
--- OUTSIDE RECORDS SUMMARY | 2024-09-29 11:41 | XMS_ITS | Referral Summary ---
Author Organization [facility] Address [address] [place] [address] Care Team Providers Care Student Accounts Manager Name Role Phone Jorge Sweeney MD Primary Care Provider + Source Comments [facility],non-owned Affiliates and Associated Physician Practices is amultiple site organization consisting of ambulatory clinics and hospital sitesin [place], [place], [place] and [place]. This disclosure is being madepursuant to the Care Everywhere program and may not contain all information available regarding this patient. Last updated 18.[facility] Allergies Active Allergy Reactions Criticality Noted Date [...] by mouth once daily Active Probiotic Product ([employer] PO) Take by mouth once daily [...] Not on file Administered Medications Care Teams Student Accounts Manager Relationship Specialty Start Date End Date Jorge Sweeney MD [address] [facility] [address] [place] [address] PCP - General Family Medicine 03/01/15
--- OUTSIDE RECORDS SUMMARY | 2024-09-29 11:41 | XMS_ITS | Referral Summary ---
Author Organization [facility] Address [address] [place] [phone] Care Team Providers Care Base Brander Name Role Phone Jorge Sweeney MD Primary Care Prov ider Encounters Date Type Department Care Team Description 09/18/2024 1:34 PM X RAY ELECTRONICS WIRING TECHNICIAN - 09/18/2024 11:59 PM X RAY ELECTRONICS WIRING TECHNICIAN Hospital Encounter [facility] Imaging and Radiology [address] [place] [phone] Screening mammogram, encounter for Discharge Disposition: Discharge to home or self care 09/18/2024 11:00 AM X RAY ELECTRONICS WIRING TECHNICIAN - 09/18/2024 11:59 PM [facility] Hospital Encounter [facility] Vascular Lab [address] [place] [phone] Other specified disorders of bone density and structure, unspecified site; Bilateral carotid artery stenosis Discharge Disposition: Discharge to home or self care 09/18/2024 1:30 PM X RAY ELECTRONICS WIRING TECHNICIAN - 09/18/2024 11:59 PM [facility] Hospital Encounter [facility] Imaging and Radiiology [address] [place] [phone] Other specified disorders of bone density [...] (06/28/2020): Added automatically from request for surgery [id number] Social History Tobacco Use Types Packs/Day Years [...] on file Legal Sex Female 3:23 AM X RAY ELECTRONICS WIRING TECHNICIAN Gender Identity Not on file Sexual Orientation Not on file Last Filed Vital Signs Vital Sign Reading Time Taken Comments Blood Pressure 130/72 07/24/2020 12:25 PM X RAY ELECTRONICS WIRING TECHNICIAN Pulse 88 07/24/2020 1:00 PM X RAY ELECTRONICS WIRING TECHNICIAN Temperature 36.7 C (98 F) 07/24/2020 4:00 AM X RAY ELECTRONICS WIRING TECHNICIAN Respiratory Rate 16 07/24/2020 1:00 PM X RAY ELECTRONICS WIRING TECHNICIAN Oxygen Saturation 98% 07/24/2020 1:00 PM X RAY ELECTRONICS WIRING TECHNICIAN Inhaled Oxygen Concentration - - Weight 91.6 kg (202 lb) 07/23/2020 11:53 AM X RAY ELECTRONICS WIRING TECHNICIAN Height 167.6 cm (5' 6 ) 07/23/2020 11:53 AM X RAY ELECTRONICS WIRING TECHNICIAN Body Mass Index 32.6 07/23/2020 11:53 AM X RAY ELECTRONICS WIRING TECHNICIAN Plan of Treatment Not on file Procedures Procedure Name Priority Date/Time Associated Diagnosis Comments DEXA AXIAL SKELETON BONE DENSITY 1 OR MORE SITES Schedule Routine, Read Routine (OP Routine) 09/18/2024 2:17 PM X RAY ELECTRONICS WIRING TECHNICIAN Other specified disorders of bone density and structure, unspecified site SCREENING MAMMOGRAM BILATERAL W CHARAN Schedule Routine, Read Routine (OP Routine) 09/18/2024 1:56 PM X RAY ELECTRONICS WIRING TECHNICIAN Screening mammogram, encounter for US CAROTIDS DUPLEX BILATERAL Schedule Routine, Read Routine (OP Routine) 09/18/2024 11:36 AM X RAY ELECTRONICS WIRING TECHNICIAN Bilateral carotid artery stenosis from Last 3 Months Results * Dexa Axial Skeleton Bone Density 1 or 2 Site (09/18/2024 2:17 PM X RAY ELECTRONICS WIRING TECHNICIAN) Anatomical Region Laterality Modality Body N/A Other 09/19/2024 8:29 AM X RAY ELECTRONICS WIRING TECHNICIAN Impressions 09/19/2024 8:29 AM X RAY ELECTRONICS WIRING TECHNICIAN Osteopenia. Consider follow-up bone densitometry evaluation in 2-3 years. Electronically signed by: Geraldo Martin M.D. Narrative 09/19/2024 8:29 AM X RAY ELECTRONICS WIRING TECHNICIAN EXAMINATION: DEXA AXIAL SKELETON BONE DENSITY 1 OR MORE SITES DATE: 09/18/2024 1:30 PM HISTORY: 69 cjjgo-cgrd-sis postmenopausal woman; other specified disorders of bone [...] SITES DATE: 09/18/2024 1:30 PM HISTORY: 69 vdjos-gqrw-nyh postmenopausal woman; other specified disorders of bone [...] Mammogram Bilateral W Charan (09/18/2024 1:56 PM X RAY ELECTRONICS WIRING TECHNICIAN) Anatomical Region Laterality Modality Breast Bilateral Mammography 09/18/2024 2:41 PM X RAY ELECTRONICS WIRING TECHNICIAN Impressions 09/18/2024 2:41 PM X RAY ELECTRONICS WIRING TECHNICIAN No evidence of malignancy in either breast. FINAL ASSESSMENT: BI-RADS Category 1: Negative. RECOMMENDATION: Recommend return for annual screening mammogram in 12 months. Electronically signed by: KRISTA CRAWFORD MD Narrative 09/18/2024 2:41 PM X RAY ELECTRONICS WIRING TECHNICIAN EXAMINATION: BILATERAL SCREENING MAMMOGRAM COMPARISON: All prior [...] US Carotids Duplex Bilateral (09/18/2024 11:36 AM X RAY ELECTRONICS WIRING TECHNICIAN) Anatomical Region Laterality Modality Vascular Bilateral Ultrasound 09/18/2024 1:04 PM X RAY ELECTRONICS WIRING TECHNICIAN Impressions 09/18/2024 1:04 PM X RAY ELECTRONICS WIRING TECHNICIAN No sonographic evidence of hemodynamically significant narrowing [...] Geraldo Martin M.D. Narrative 09/18/2024 1:04 PM X RAY ELECTRONICS WIRING TECHNICIAN EXAMINATION: US CAROTIDS DUPLEX BILATERAL DATE: 09/18/2024 [...] Last 3 Months Insurance MEDICARE [employer] [place] MEDICARE [employer] [place] [employer] [place] [address] [employer] CHOICE MEDICARE PPO Advance Directives For more information, please contact: [phone] * Full Code (Latest Code Status on File) Date Activated Date Inactivated Comments 07/23/2020 5:38 PM 07/24/2020 9:05 PM Care Teams Base Brander Relationship Specialty Start Date End Date Jorge Sweeney MD [address] [place] [address] PCP - General 12/02/20
--- OUTSIDE RECORDS SUMMARY | 2024-09-29 11:41 | XMS_ITS | Clinical Summary ---
Author Organization [facility] Address [address] [facility] [address] [place] [address] Phone Care Team Providers Care Wholesale Buyer Name Role Phone Jorge Sweeney MD Primary Care Provider +1- [phone] Allergies Active Allergy Reactions Criticality Noted Date [...] on file Legal Sex Female 10:54 AM COTTON WEIGHER Gender Identity Not on file Sexual Orientation Not on file Last Filed Vital Signs Vital Sign Reading Time Taken Comments Blood Pressure 122/62 10/18/2023 3:09 PM COTTON WEIGHER Pulse 73 10/18/2023 3:09 PM COTTON WEIGHER Temperature - - Respiratory Rate - - Oxygen Saturation 96% 09/13/2023 8:47 AM COTTON WEIGHER Inhaled Oxygen Concentration - - Weight 93 kg (205 lb) 10/18/2023 3:09 PM COTTON WEIGHER Height 167.6 cm (5' 6 ) 10/18/2023 3:09 PM COTTON WEIGHER Body Mass Index 33.09 10/18/2023 3:09 PM COTTON WEIGHER Plan of Treatment Upcoming Encounters Date Type Department Care Team (Late st Contact Info) Description 10/22/2024 2:00 PM CDT Office Visit [facility] Heart and Vascular - [address] [address] [facility] [address] [place] [address] Shari Lares FNP [address] [facility] [address] [place] [address] Health Maintenance Due Date Last [...] Screening 03/05/2034 OSTEOPOROSIS SCREENING Completed 08/02/2022 Insurance [employer] MEDICARE PART A AND B Care Teams Wholesale Buyer Relationship Specialty Start Date End Date Jorge Sweeney MD [address] [place] [phone] PCP - General Family Practice 10/10/23
== END 2024-09-29 08:58 | disposition home or self-care (01) ==
PROVIDERS: PCP Family Medicine Adolescent Medicine; Visit Provider Internal Medicine Gastroenterology
DX: K85.90 Acute pancreatitis without necrosis or infection, unspecified (principal)
CPT/HCPCS: 76705